=== PATIENT | female | born 1935 | race Caucasian/White ===

== ENCOUNTER 2016-04-07 17:09 | Inpatient (IN) | payer MEDICARE ==
[~2016-04-07] VITALS: Ht 162.5 cm; Wt 86.8 kg
--- NOTE | ~2016-04-07 | O ---
[place], [place] OPERATIVE NOTE NAME: CELENA GOLDSTEIN I UNIT #: [id number] ROOM: 426 DOCTOR: SHELBY ASTORGA MD BIRTHDATE: [birth year] DOS: GASTROENDOSCOPIC REPORT HISTORY OF PRESENT ILLNESS: The patient is an 81-year-old who has presented with chief complaint of severe rectal pain as well as nausea, vomiting, abnormal LFTs, undergoing investigation. PROCEDURE: Today's procedure part of investigation is panendoscopy plus biopsy and digital disimpaction of impacted large volume of solid stool in the rectum. PREMEDICATION: Versed and Diprivan. SCOPE: Olympus folding gastroscope Q10 video. REPORT: After putting the patient in the left lateral position and after application of lubricant to the scope, the scope was introduced. Thereafter, under direct visualization, advanced through the length of esophagus without difficulty. Esophagus and cervicothoracic distally carefully examined. Gastric pouch was entered. Gastritis seen. Duodenal bulb, second and third part within normal limit. No ulceration, no obstruction was noted. The patient was extubated after antral biopsy, tolerated the procedure well. IMPRESSION: Gastritis, status post antral biopsy. PLAN AND DISCUSSION: I am going to proceed with examination of the lower GI tract. SHELBY ASTORGA MD CM:OPRECORD:OPERATIVE NOTE 1537 12 SHELBY ASTORGA MD 04/08/16 181 interface
--- NOTE | ~2016-04-07 | CON ---
[place], [place] REPORT OF CONSULTATION NAME: CELENA GOLDSTEIN I UNIT #: [id number] ROOM: 426 DOCTOR: SHELBY ASTORGA MD BIRTHDATE: [birth year] DOS: 04/08/2016 HISTORY OF PRESENT ILLNESS: An 81-year-old patient who has presented with multiple medical problems, among which were expression of rectal pain, epigastric distress, abnormal liver function tests, and leukocytosis. The patient had a panel of blood work was done since there is no line of communication with her. Urinalysis was normal. CBC, white blood cell was increased to 11, H and H of 11 and 37. Acute abdominal series, chronic parenchymal lung disease, no acute intrathoracic process, significant hard stool in the colon. BUN and creatinine of 76 and 2.74, bilirubin 2.1, GOT and GPT of 240 and 90 and alkaline phosphatase of 206. INR of 1.4. PAST MEDICAL HISTORY: It looks dementia, peripheral vascular disease, intractable nausea, vomiting, and abdominal pain. PAST SURGICAL HISTORY: Appendectomy, cataracts, cholecystectomy, hysterectomy, and . SOCIAL HISTORY: History of alcohol in past. Nonsmoker. MEDICATIONS: List has been reviewed. ALLERGIES: SULFA AND SUSPECTED LOVASTATIN AND NIACIN. REVIEW OF SYSTEMS: In general cannot be obtained from the patient due to cognitive impairment. PHYSICAL EXAMINATION: GENERAL: Obese. VITAL SIGNS: Stable. HEENT: Within normal limits. NECK: Supple. No thyromegaly. CHEST: Symmetric anatomy. Equal expansion. Decreased air entry in general. HEART: Normal sinus rhythm, no gallop, no murmur. ABDOMEN: Obese, large, soft. No hepato-organomegaly. Bowel sounds present. EXTREMITIES: No cyanosis, no pedal edema. NEUROLOGIC: Alert, semi-oriented with pain. No communication, however. PELVIC: She is sitting on a pool of stool. IMPRESSION: 1. Bowel obstruction secondary to mechanical effect of the stool in the rectum. 2. Abnormal LFTs, ruling out mobilization of choledocholithiasis, status post old history of cholecystectomy. 3. Nausea, vomiting, and retching persistently. Ruling out this to be secondary to choledocholithiasis, otherwise ruling out peptic ulcer disease. OTHER ADJUNCTIVE DIAGNOSES: As outlined in paragraph of past surgical and medical history. PLAN AND DISCUSSION: I am going to organize an EGD and digital disimpaction of [place], [place] REPORT OF CONSULTATION NAME: CELENA GOLDSTEIN I UNIT #: [id number] ROOM: 426 DOCTOR: SHELBY ASTORGA MD BIRTHDATE: [birth year] stool and clinical reassessment. SHELBY ASTORGA MD CM:CONSTR:REPORT OF CONSULTATION 1418 04/09/16 0028 interface
--- NOTE | ~2016-04-07 | O ---
[place], [place] OPERATIVE NOTE NAME: CELENA GOLDSTEIN I UNIT #: [id number] ROOM: 426 DOCTOR: GAURI HARRIS,SHELBY BIRTHDATE: [birth year] DOS: GASTROENDOSCOPIC REPORT PROCEDURE: Today's procedure is rectal disimpaction of solid stool and obstruction under sedation. REPORT: After putting the patient in the left lateral position and utilization of copious volume of lubricant, digital examination of the rectum for disimpaction purpose was undertaken. About at least 2 L of solid stool from rectal vault and pouch was delivered and this was only practical under complete sedation. At this stage, the patient cleaned out and sent to the floor, so that we can start colonic prep in hopes of future investigation of the colon. As far as abnormal LFTs is concerned, we are going to follow up on LFTs and CT scan of the abdomen is going to be organized to assure that there is no common duct stone. Thank you again. Sincerely yours, SHELBY ASTORGA MD CM:OPRECORD:OPERATIVE NOTE 1537 17 SHELBY ASTORGA MD 04/08/161816 interface
[~2016-04-07 17:09] MED LIST: AMOXICILLIN500 M2 PO; ATIVAN1 MG PO; CLARITIN10 MG PO; COUMADIN2 M1 PO; COZAAR100 MG PO; COZAAR25 MG PO; COZAAR50 M1 PO; CRESTOR5 MG PO; GABAPENTIN100 MG PO; ISOPTIN SR120 M1 PO; JANTOVEN1 MG PO; K-Dur 20MEQ20 MEQ PO; K-NORM10 MEQ PO; LANTUS100 U/ML SC; LASIX40 MG PO; NITRO TRANS0.2 MG/HR TD; NORVASC10 MG PO; NOVOLOG 70/30 M10 ML SC; NOVOLOG 701 UNIT/0.0 SC; OXYBUTYNIN5 MG PO; PLAVIX75 MG PO; PREDNISONE10 MG PO; PRILOSEC20 MG PO; PROCARDIA XL90 MG PO; PROTONIX40 MG PO; ROCALTROL0.5 MC1 PO; TOPROL XL25 MG PO; TOPROL XL50 M1 PO; TOPROL XL50 MG PO; TYLENOL325 M1 PO; VITAMIN D NATU400 IU PO; ZANTAC 150150 MG PO
[2016-04-07 17:25] VITALS: BP 142/80
[2016-04-07 18:01] LABS: BILIRUBIN NEGATIVE (NEGATIVE); BLOOD NEGATIVE (NEGATIVE); CLARITY CLEAR (CLEAR); COLOR YELLOW (YELLOW); GLUCOSE NEGATIVE (NEGATIVE); KETONE NEGATIVE (NEGATIVE); LEUKO ESTERASE NEGATIVE (NEGATIVE); NITRITE NEGATIVE (NEGATIVE); PH 5.5 (5.0-9.0); PROTEIN NEGATIVE (NEGATIVE); UROBILINOGEN 0.2 E.U./dl (0.2-1.0)
[2016-04-07 18:07] LABS: BASO % 0.4 % (0.0-1.0); EOS # 0.2 10*3/uL (0.0-0.4); EOS % 2.2 % (1.0-4.0); HEMATOCRIT 37.2 % (37.0-47.0); HEMOGLOBIN 11.8 g/dl (12.0-16.0); LYMPH # 1.6 10*3/uL (1.3-4.4); LYMPH % 23.1 % (27.0-41.0); MEAN CELL VOLUME 93.5 fl (81.0-99.0); MEAN CORPUSCULAR HGB 29.6 pg (27.0-31.0); MEAN CORPUSCULAR HGB CONC 31.7 g/dl (33.0-37.0); MEAN PLATELET VOLUME 10.4 fl (9.6-12.3); MONO # 0.7 10*3/uL (0.1-1.0); MONO % 9.8 % (3.0-9.0); NEUT # 4.3 10*3/uL (2.3-7.9); NEUT % 64.2 % (47.0-73.0); PLATELET COUNT AUTOMATED 203 10*3/uL (130-400); RED BLOOD COUNT 3.98 10*6/uL (4.10-5.10); RED CELL DISTRI WIDTH 13.7 % (0-14.5); WHITE BLOOD COUNT 6.8 10*3/uL (4.8-10.8)
[2016-04-07 18:09] LABS: BACTERIA 1+; URINE REFLEX COMMENT NO (NO); WBC 0-2 wbc/hpf (0-5)
[2016-04-07 18:24] LABS: ALBUMIN 3.3 gm/dl (3.1-4.5); BILIRUBIN, TOTAL 1.8 mg/dl (0.2-1.0); POTASSIUM 4.4 mmol/L (3.5-5.1)
[2016-04-07 19:06] VITALS: BP 177/60
[2016-04-07] MEDS ORDERED: CARDIZEM CD180 MG PO (19:22)
[2016-04-07] MEDS ORDERED: JANTOVEN5 MG PO (19:25)
[2016-04-07] MEDS ORDERED: NEURONTIN300 MG PO (19:25)
[2016-04-07] MEDS ORDERED: SINEMET 25-1001 TA1 PO (19:28)
[2016-04-07] MEDS ORDERED: CRESTOR5 MG PO (19:29)
[2016-04-07] MEDS ORDERED: VESICARE5 MG PO (19:30)
[2016-04-07 20:40] VITALS: BP 152/94
[2016-04-08] VITALS (8 sets, daily range): BP systolic 126–152; BP diastolic 45–95
[2016-04-08 06:36] LABS: BASO % 0.3 % (0.0-1.0); EOS % 0.1 % (1.0-4.0); HEMATOCRIT 38.5 % (37.0-47.0); HEMOGLOBIN 12.3 g/dl (12.0-16.0); LYMPH % 8.1 % (27.0-41.0); MEAN CELL VOLUME 94.4 fl (81.0-99.0); MEAN CORPUSCULAR HGB 30.1 pg (27.0-31.0); MEAN CORPUSCULAR HGB CONC 31.9 g/dl (33.0-37.0); MEAN PLATELET VOLUME 10.7 fl (9.6-12.3); MONO # 1.1 10*3/uL (0.1-1.0); MONO % 9.1 % (3.0-9.0); NEUT # 9.6 10*3/uL (2.3-7.9); NEUT % 82.1 % (47.0-73.0); PLATELET COUNT AUTOMATED 168 10*3/uL (130-400); RED BLOOD COUNT 4.08 10*6/uL (4.10-5.10); WHITE BLOOD COUNT 11.7 10*3/uL (4.8-10.8)
[2016-04-08 07:43] LABS: ALBUMIN 3.2 gm/dl (3.1-4.5); BILIRUBIN, TOTAL 2.1 mg/dl (0.2-1.0); POTASSIUM 4.1 mmol/L (3.5-5.1); TOTAL PROTEIN 6.8 gm/dL (6.4-8.2)
[2016-04-08 10:56] LABS: INTERNATIONAL NORM RATIO 1.4 (2.0-3.5); PROTHROMBIN TIME 14.7 SECONDS (9.0-12.4)
[2016-04-09] VITALS: BP 92/73
[2016-04-09 05:40] LABS: ALBUMIN 2.8 gm/dl (3.1-4.5); POTASSIUM 4.2 mmol/L (3.5-5.1); TOTAL PROTEIN 6.3 gm/dL (6.4-8.2)
[2016-04-09 06:11] LABS: BASO % 0.3 % (0.0-1.0); EOS # 0.2 10*3/uL (0.0-0.4); EOS % 1.6 % (1.0-4.0); HEMATOCRIT 35.8 % (37.0-47.0); HEMOGLOBIN 11.2 g/dl (12.0-16.0); LYMPH # 1.6 10*3/uL (1.3-4.4); LYMPH % 16.7 % (27.0-41.0); MEAN CORPUSCULAR HGB CONC 31.3 g/dl (33.0-37.0); MEAN PLATELET VOLUME 11.5 fl (9.6-12.3); MONO % 10.2 % (3.0-9.0); NEUT # 6.7 10*3/uL (2.3-7.9); NEUT % 70.8 % (47.0-73.0); PLATELET COUNT AUTOMATED 152 10*3/uL (130-400); RED BLOOD COUNT 3.73 10*6/uL (4.10-5.10); RED CELL DISTRI WIDTH 14.1 % (0-14.5); WHITE BLOOD COUNT 9.4 10*3/uL (4.8-10.8)
[2016-04-09 08:00] VITALS: BP 120/45
[2016-04-09 16:00] VITALS: BP 110/48
[2016-04-09 20:00] VITALS: BP 120/51
[2016-04-10] VITALS: BP 100/48
[2016-04-10 06:46] LABS: BASO % 0.6 % (0.0-1.0); EOS # 0.3 10*3/uL (0.0-0.4); HEMATOCRIT 35.6 % (37.0-47.0); LYMPH # 1.7 10*3/uL (1.3-4.4); LYMPH % 31.9 % (27.0-41.0); MEAN CELL VOLUME 96.2 fl (81.0-99.0); MEAN CORPUSCULAR HGB 29.7 pg (27.0-31.0); MEAN CORPUSCULAR HGB CONC 30.9 g/dl (33.0-37.0); MEAN PLATELET VOLUME 10.9 fl (9.6-12.3); MONO # 0.4 10*3/uL (0.1-1.0); MONO % 7.1 % (3.0-9.0); NEUT # 2.9 10*3/uL (2.3-7.9); NEUT % 55.2 % (47.0-73.0); PLATELET COUNT AUTOMATED 156 10*3/uL (130-400); RED CELL DISTRI WIDTH 14.1 % (0-14.5); WHITE BLOOD COUNT 5.2 10*3/uL (4.8-10.8)
[2016-04-10 07:15] LABS: ALBUMIN 2.6 gm/dl (3.1-4.5); POTASSIUM 3.8 mmol/L (3.5-5.1); TOTAL PROTEIN 5.9 gm/dL (6.4-8.2)
[2016-04-10 07:23] LABS: INTERNATIONAL NORM RATIO 2.1 (2.0-3.5); PROTHROMBIN TIME 22.7 SECONDS (9.0-12.4)
[2016-04-10 07:54] VITALS: BP 118/64
[2016-04-10 16:00] VITALS: BP 100/57
[2016-04-11] VITALS: BP 129/57
[2016-04-11 06:56] LABS: BASO % 0.7 % (0.0-1.0); EOS # 0.4 10*3/uL (0.0-0.4); HEMATOCRIT 34.5 % (37.0-47.0); HEMOGLOBIN 10.9 g/dl (12.0-16.0); LYMPH # 1.9 10*3/uL (1.3-4.4); LYMPH % 32.6 % (27.0-41.0); MEAN CELL VOLUME 94.8 fl (81.0-99.0); MEAN CORPUSCULAR HGB 29.9 pg (27.0-31.0); MEAN CORPUSCULAR HGB CONC 31.6 g/dl (33.0-37.0); MEAN PLATELET VOLUME 11.1 fl (9.6-12.3); MONO # 0.5 10*3/uL (0.1-1.0); MONO % 9.2 % (3.0-9.0); NEUT % 51.2 % (47.0-73.0); PLATELET COUNT AUTOMATED 157 10*3/uL (130-400); RED BLOOD COUNT 3.64 10*6/uL (4.10-5.10); RED CELL DISTRI WIDTH 13.9 % (0-14.5); WHITE BLOOD COUNT 5.9 10*3/uL (4.8-10.8)
[2016-04-11 07:18] LABS: INTERNATIONAL NORM RATIO 1.9 (2.0-3.5); PROTHROMBIN TIME 20.2 SECONDS (9.0-12.4)
[2016-04-11 07:20] LABS: ALBUMIN 2.6 gm/dl (3.1-4.5); BILIRUBIN, TOTAL 0.7 mg/dl (0.2-1.0); POTASSIUM 4.3 mmol/L (3.5-5.1)
[2016-04-11 07:52] VITALS: BP 120/52
[2016-04-11] MEDS ORDERED: Coumadin5 MG PO (15:57)
[2016-04-11 16:00] VITALS: BP 144/75
[2016-06-05] MEDS ORDERED: LACTULOSE20 GM/30 M PO (15:00)
[2016-06-05] MEDS ORDERED: CRESTOR5 MG PO (15:02)
== END 2016-04-11 17:55 | disposition home or self-care (01) | DRG 388 ==
LOC: ED 17:09 → EDHOLD 18:56 → 4E 18:56
PROVIDERS: Emergency Medicine; Hospitalist; Internal Medicine; Internal Medicine Gastroenterology
PROC: 0DJD8ZZ Inspection of Lower Intestinal Tract, Via Natural or Artificial Opening Endoscopic (ICD-10-PCS; principal; 2016-04-08)
PROC: 0DB68ZX Excision of Stomach, Via Natural or Artificial Opening Endoscopic, Diagnostic (ICD-10-PCS; principal; 2016-04-08)
DX: K56.41 Fecal impaction (principal); N17.1 Acute kidney failure with acute cortical necrosis; K56.69 Other intestinal obstruction; L03.116 Cellulitis of left lower limb; E86.0 Dehydration; K21.9 Gastro-esophageal reflux disease without esophagitis; F32.9 Major depressive disorder, single episode, unspecified; K29.70 Gastritis, unspecified, without bleeding; F41.9 Anxiety disorder, unspecified; Z88.2 Allergy status to sulfonamides; Z88.8 Allergy status to other drugs, medicaments and biological substances; Z79.4 Long term (current) use of insulin; Z79.01 Long term (current) use of anticoagulants; Z79.899 Other long term (current) drug therapy; Z90.49 Acquired absence of other specified parts of digestive tract; Z90.710 Acquired absence of both cervix and uterus; Z98.49 Cataract extraction status, unspecified eye

== ENCOUNTER → 2016-04-15 | Outpatient (CLI) | payer MEDICARE ==
[~2016-04-15] MED LIST changes: +CARDIZEM CD180 MG PO; +Coumadin5 MG PO; +JANTOVEN5 MG PO; +LACTULOSE20 GM/30 M PO; +NEURONTIN300 MG PO; +SINEMET 25-1001 TA1 PO; +VESICARE5 MG PO
[2016-04-15 13:30] LABS: INTERNATIONAL NORM RATIO 2.8 (2.0-3.5); PROTHROMBIN TIME 30.9 SECONDS (9.0-12.4)
== END | disposition home or self-care (01) ==
LOC: LAB 12:41
PROVIDERS: Hospitalist
DX: Z86.718 Personal history of other venous thrombosis and embolism (principal)

== ENCOUNTER 2016-10-16 23:21 | Inpatient (IN) | payer MEDICARE ==
[~2016-10-16] VITALS: Ht 167.6 cm; Wt 78.7 kg
[~2016-10-16 23:21] MED LIST changes: +PRILOSEC20 M1 PO; -PRILOSEC20 MG PO
[2016-10-16 23:32] VITALS: BP 129/73
[2016-10-16 23:49] VITALS: BP 142/61
[2016-10-17] VITALS (8 sets, daily range): BP systolic 90–186; BP diastolic 60–84
[2016-10-17 00:12] LABS: BASO % 0.5 % (0.0-1.0); EOS # 0.1 10*3/uL (0.0-0.4); EOS % 0.9 % (1.0-4.0); HEMATOCRIT 41.6 % (37.0-47.0); HEMOGLOBIN 13.4 g/dl (12.0-16.0); LYMPH # 1.6 10*3/uL (1.3-4.4); LYMPH % 20.6 % (27.0-41.0); MEAN CORPUSCULAR HGB 29.3 pg (27.0-31.0); MEAN CORPUSCULAR HGB CONC 32.2 g/dl (33.0-37.0); MEAN PLATELET VOLUME 10.5 fl (9.6-12.3); MONO # 0.6 10*3/uL (0.1-1.0); MONO % 7.9 % (3.0-9.0); NEUT # 5.5 10*3/uL (2.3-7.9); NEUT % 69.8 % (47.0-73.0); PLATELET COUNT AUTOMATED 156 10*3/uL (130-400); RED BLOOD COUNT 4.57 10*6/uL (4.10-5.10); RED CELL DISTRI WIDTH 13.7 % (0-14.5); WHITE BLOOD COUNT 7.9 10*3/uL (4.8-10.8)
[2016-10-17 00:22] LABS: INTERNATIONAL NORM RATIO 1.5 (2.0-3.5); PROTHROMBIN TIME 16.6 SECONDS (9.0-12.4)
[2016-10-17 00:29] LABS: ALBUMIN 3.2 gm/dl (3.1-4.5); BILIRUBIN, TOTAL 1.2 mg/dl (0.2-1.0); MAGNESIUM 1.6 mg/dL (1.5-2.1); POTASSIUM 3.7 mmol/L (3.5-5.1); TOTAL PROTEIN 7.7 gm/dL (6.4-8.2)
[2016-10-17 00:30] LABS: CKMB 1.2 ng/ml (0.5-3.6)
[2016-10-17 00:31] LABS: TROPONIN I 0.089 ng/ml (<0.045)
[2016-10-17 01:54] LABS: BILIRUBIN NEGATIVE (NEGATIVE); BLOOD 2+ (NEGATIVE); CLARITY CLEAR (CLEAR); COLOR YELLOW (YELLOW); GLUCOSE TRACE (NEGATIVE); KETONE TRACE (NEGATIVE); LEUKO ESTERASE NEGATIVE (NEGATIVE); NITRITE NEGATIVE (NEGATIVE); PROTEIN TRACE (NEGATIVE)
[2016-10-17 02:01] LABS: EPITHELIAL CELLS 15-20; URINE REFLEX COMMENT YES (NO)
[2016-10-17 05:47] LABS: BASO % 0.5 % (0.0-1.0); EOS # 0.1 10*3/uL (0.0-0.4); EOS % 1.2 % (1.0-4.0); HEMATOCRIT 40.2 % (37.0-47.0); LYMPH # 1.8 10*3/uL (1.3-4.4); LYMPH % 23.7 % (27.0-41.0); MEAN CORPUSCULAR HGB 29.7 pg (27.0-31.0); MEAN CORPUSCULAR HGB CONC 32.3 g/dl (33.0-37.0); MEAN PLATELET VOLUME 10.2 fl (9.6-12.3); MONO # 0.6 10*3/uL (0.1-1.0); MONO % 7.9 % (3.0-9.0); NEUT % 66.4 % (47.0-73.0); PLATELET COUNT AUTOMATED 146 10*3/uL (130-400); RED BLOOD COUNT 4.37 10*6/uL (4.10-5.10); RED CELL DISTRI WIDTH 13.8 % (0-14.5); WHITE BLOOD COUNT 7.6 10*3/uL (4.8-10.8)
[2016-10-17 06:03] LABS: HEMOGLOBIN A1c 7.2 % (4.8-5.6)
[2016-10-17 06:17] LABS: BILIRUBIN, TOTAL 0.9 mg/dl (0.2-1.0); POTASSIUM 3.4 mmol/L (3.5-5.1)
[2016-10-17 06:26] LABS: FREE T4 1.37 ng/dl (0.76-1.46); PHOSPHOROUS 2.4 mg/dL (2.5-4.9); THYROID STIM HORMONE (HS) 3.4 uIU/ml (0.358-4.75); TOTAL PROTEIN 7.1 gm/dL (6.4-8.2)
[2016-10-17 06:28] LABS: INTERNATIONAL NORM RATIO 1.6 (2.0-3.5); PROTHROMBIN TIME 17.6 SECONDS (9.0-12.4)
[2016-10-17 06:41] LABS: FOLIC ACID 9.45 ng/mL (>5.38)
[2016-10-18] VITALS: BP 107/47
[2016-10-18] MEDS ORDERED: OMEPRAZOLE40 MG PO (02:17)
[2016-10-18] MEDS ORDERED: GABAPENTIN400 MG PO (04:20)
[2016-10-18] MEDS ORDERED: Cimetidine300 MG PO (04:25)
[2016-10-18 08:00] VITALS: BP 152/50
[2016-10-18 10:29] LABS: INTERNATIONAL NORM RATIO 1.3 (2.0-3.5); PROTHROMBIN TIME 14.1 SECONDS (9.0-12.4)
[2016-10-18 12:00] VITALS: BP 116/50
[2016-10-18 12:07] LABS: POTASSIUM 4.4 mmol/L (3.5-5.1)
[2016-10-18 16:00] VITALS: BP 158/65
[2016-10-18 20:00] VITALS: BP 143/57
[2016-10-19] VITALS: BP 109/33; BP 128/58
[2016-10-19 06:34] LABS: INTERNATIONAL NORM RATIO 1.2 (2.0-3.5); PROTHROMBIN TIME 12.8 SECONDS (9.0-12.4)
[2016-10-19 08:00] VITALS: BP 138/82
[2016-10-19 12:00] VITALS: BP 102/65; BP 136/88; BP 139/50
[2016-10-19 16:00] VITALS: BP 128/56
[2016-10-19 20:00] VITALS: BP 159/52
[2016-10-20] VITALS: BP 154/46
[2016-10-20 06:16] LABS: INTERNATIONAL NORM RATIO 1.3 (2.0-3.5); PROTHROMBIN TIME 13.9 SECONDS (9.0-12.4)
[2016-10-20 08:00] VITALS: BP 148/50
[2016-10-20 15:51] VITALS: BP 146/52
[2016-10-20 20:00] VITALS: BP 168/49
[2016-10-21] VITALS: BP 138/105; BP 140/60
[2016-10-21 06:58] LABS: INTERNATIONAL NORM RATIO 1.5 (2.0-3.5); PROTHROMBIN TIME 15.8 SECONDS (9.0-12.4)
[2016-10-21 08:00] VITALS: BP 154/46
[2016-10-21 12:09] VITALS: BP 161/66
[2016-10-21] MEDS ORDERED: COUMADIN6 M2 PO (14:59)
[2016-10-21 17:05] VITALS: BP 139/59
== END 2016-10-21 17:26 | disposition home or self-care (01) | DRG 682 ==
LOC: ED 23:21 → EDHOLD 10-17 01:49 → 5E 10-17 01:49
PROVIDERS: Emergency Medicine Emergency Medical Services; Internal Medicine; Internal Medicine Hospice and Palliative Medicine
DX: N17.0 Acute kidney failure with tubular necrosis (principal); G93.40 Encephalopathy, unspecified; E44.0 Moderate protein-calorie malnutrition; E11.22 Type 2 diabetes mellitus with diabetic chronic kidney disease; D68.59 Other primary thrombophilia; E11.649 Type 2 diabetes mellitus with hypoglycemia without coma; I50.32 Chronic diastolic (congestive) heart failure; I13.0 Hypertensive heart and chronic kidney disease with heart failure and stage 1 through stage 4 chronic kidney disease, or unspecified chronic kidney disease; I48.2 Chronic atrial fibrillation; E11.65 Type 2 diabetes mellitus with hyperglycemia; M19.90 Unspecified osteoarthritis, unspecified site; K59.00 Constipation, unspecified; E80.6 Other disorders of bilirubin metabolism; R74.0 Nonspecific elevation of levels of transaminase and lactic acid dehydrogenase [LDH]; F32.9 Major depressive disorder, single episode, unspecified; K21.9 Gastro-esophageal reflux disease without esophagitis; E78.2 Mixed hyperlipidemia; H91.93 Unspecified hearing loss, bilateral; I08.1 Rheumatic disorders of both mitral and tricuspid valves; I27.2 Other secondary pulmonary hypertension; F41.1 Generalized anxiety disorder; N18.4 Chronic kidney disease, stage 4 (severe); Z88.1 Allergy status to other antibiotic agents; Z88.8 Allergy status to other drugs, medicaments and biological substances; Z90.49 Acquired absence of other specified parts of digestive tract; Z95.0 Presence of cardiac pacemaker; Z79.4 Long term (current) use of insulin; Z68.29 Body mass index [BMI] 29.0-29.9, adult

== ENCOUNTER → 2017-02-19 | Outpatient (CLI) | payer MEDICARE ==
[~2017-02-19] MED LIST changes: +COUMADIN6 M2 PO; +Cimetidine300 MG PO; +GABAPENTIN400 MG PO; +OMEPRAZOLE40 MG PO
== END | disposition home or self-care (01) ==
LOC: RAD 15:39
DX: M17.12 Unilateral primary osteoarthritis, left knee (principal); M25.462 Effusion, left knee

== ENCOUNTER 2017-02-22 17:51 | Inpatient (IN) | payer MEDICARE ==
[~2017-02-22] VITALS: Ht 162.5 cm; Wt 75.4 kg
--- NOTE | ~2017-02-22 | WRIGHTHP ---
[place], [place] PATIENT HISTORY AND PHYSICAL EXAM NAME: [facility]STEIN [id number] #: [id number] ROOM: 520 DOCTOR: NADINE MANUEL MD BIRTHDATE: [birth year] DOS: 02/22/2017 HISTORY OF PRESENT ILLNESS: The patient has been admitted to hospital with confused mental state, unable to communicate well and having urinary tract infection with urosepsis and due to that, she has been admitted to hospital. She was brought to Emergency Department by the family with confused mental state and she was brought by ambulance. She had some hallucinations at home and she has also foul smelling urine infection. On investigation in the Emergency Department, the patient was found to be having urosepsis with dehydration with renal failure, so needed to be admitted to the hospital. PAST MEDICAL HISTORY: The patient has past history of permanent cardiac pacemaker placement, history of appendectomy, cataract surgery, cholecystectomy, hysterectomy. The patient has past history of atrial fibrillation, hyperlipidemia, ESRD, hypertension, congestive heart failure, GERD syndrome, peripheral neuritis, diabetes mellitus. MEDICATIONS: The patient is taking losartan 50 mg daily, Sinemet ____ mg 1 tablet 3 times daily, omeprazole 40 mg daily, gabapentin 400 mg 3 times daily, ____ 50 mg daily, Lasix 40 mg daily, calcitriol 0.5 mg daily, insulin glargine 25 units daily, lactulose 20 grams daily, ____ 180 mg daily, lovastatin 5 mg daily, VESIcare 5 mg daily, potassium chloride 20 mEq daily. PHYSICAL EXAMINATION: GENERAL: The patient is hard of hearing. She is not able to communicate with me, but she is somewhat conscious, does not seem to be confused and she seems to be somewhat dehydrated. Her facial expression is bland. HEENT AND NECK: Veins are not distended. Carotid pulsation normal. Tongue is coated and dry. HEART: Regular. No murmur. LUNGS: Clear. No creps or rhonchi. ABDOMEN: Soft. Some tenderness in the suprapubic region, having foul urinary smell. EXTREMITIES: No edema of leg. NEUROLOGIC: No localized neurological deficit observed. LABORATORY DATA: Her lactic acid level is 1.6, which is normal. CBC showed no acute abnormality. Comprehensive metabolic shows glucose 230, BUN 34, creatinine 1.65, GFR 30, indicating renal failure, I do not know whether this is chronic or acute on chronic. Her albumin is 2.8, bilirubin is 1.3, alkaline phosphatase 105. Lipase is 44. Protime is 36.8, which is high. I will hold her Coumadin today and from tomorrow she will be on going to 3 mg. Chest x-ray is normal. Urine examination shows 2+ bacteria, 2+ protein, hyaline crystals. CT scan of the head is normal. DIAGNOSES: Urosepsis with renal failure with end-stage renal disease, hypertension, atrial fibrillation, congestive heart failure, confused mental status, diabetes mellitus, hyperlipidemia and neuritis. PLAN OF TREATMENT: The patient will be given IV fluid, will be started on home [place], [place] PATIENT HISTORY AND PHYSICAL EXAM NAME: CELENA GOLDSTEIN I UNIT #: [id number] ROOM: [facility] DOCTOR: MAR HARRIS,NADINE Lobo BIRTHDATE: [birth year] medication except I will reduce the dose of her Coumadin and also hold her Lasix and reduce the dose of gabapentin. NADINE MANUEL MD CM:HISPHYS:PATIENT HISTORY AND PHYSICAL EXAMINATION 1102 1427 NADINE MANUEL MD 02/23/17 5496 interface
--- NOTE | ~2017-02-22 | CON ---
[place], [place] REPORT OF CONSULTATION NAME: CELENA GOLDSTEIN I UNIT #: [id number] ROOM: 520 DOCTOR: HE NEVAREZ MD BIRTHDATE: [birth year] DOS: 02/25/2017 CHIEF COMPLAINT: "I don't want breakfast." HISTORY OF PRESENT ILLNESS: This is an 81-year-old white female who was brought to the emergency room at [facility] by family. She was found to be increasingly confused with an altered mental status. Upon admission, she was found to have foul-smelling urine with a UTI. She was also dehydrated and in renal failure. She had subsequently been admitted to the medical unit where she has been found to be confused, experiencing significant hallucinations and also some symptoms suggestive of depression. PAST MEDICAL HISTORY: She has a permanent cardiac pacemaker and appendectomy, cataract surgery, cholecystectomy, hysterectomy, AFib, hyperlipidemia, end-stage renal disease, hypertension, congestive heart failure, GERD, peripheral neuritis and diabetes. MENTAL STATUS: The patient is alert and oriented to person, place, but not time. She reports that she has been here just one night and did not sleep well. She also endorses poor appetite and no desire to eat. She seems rather flat and blunted with constricted range. Her responses tended to be short and simple, at times inappropriate. She does process information very slowly and her short term memory is exceedingly poor. DIAGNOSIS: Major depression, recurrent. PLAN: I will go ahead and start Remeron 15 mg at bedtime to aide sleep, improve appetite and combat depression. We will need to continue to evaluate her for the presence of any underlying dementia. It is unclear how much of her altered mental status is because of the urosepsis and dehydration as well as possible effect from depression. At the present time, I have no grounds to force her to the psychiatric unit. I do think she would benefit though from ongoing psychiatric treatment. Her response to me was that she wants to just leave here and go home, perhaps family can help convince her to continue to receive ongoing active psychiatric intervention. HE NEVAREZ MD CM:CONSTR:REPORT OF CONSULTATION 0915 02/25/17 0935 interface
--- NOTE | ~2017-02-22 | CON ---
[place], [place] REPORT OF CONSULTATION NAME: CELENA GOLDSTEIN I UNIT #: [id number] ROOM: 520 DOCTOR: MARY RANDALL ED.D (NORA) BIRTHDATE: [birth year] DOS: 02/26/2017 HISTORY OF PRESENT ILLNESS: The patient is an 81-year-old female referred by Dr. Nevarez for competency evaluation. At the present time, this patient is on the 5th floor at [facility]. Her physician is Dr. Limon and her medical history is pertinent for urinary tract infection, altered mental status, diabetes. Her medications include Crestor, VESIcare, calcium, Coumadin, Cardizem, Sinemet, losartan, gabapentin, omeprazole, insulin, lactulose, Lasix, Cozaar. This patient does not have any significant substance abuse issues. She was awake, alert and oriented to person only. She was aware she was in [place] but had no idea she was at the hospital. She does not know the year or the date or the season of the year. Her short and long-term memory appeared to be somewhat impaired, but is difficult to ascertain that her level of impairment due to the fact that she has been delirious secondary to her urinary tract infection and her elevated BUN. I spoke at length with her daughters and they said she had been living in home comfortably with support from her family who live across the street and next door. She was wheelchair bound and had difficulty getting around but overall did fairly well. She would have periods of time throughout the year, when she would become more confused. She was possibly suffering from some type of urinary tract infection or dehydration at that time. She then would be fine, had no difficulties whatsoever. She may have some mild underlying dementia, but is not severe. She is clearly not competent to make informed healthcare decisions at this time and all decision should be made by her daughters. There was a concern about sending her to the Behavioral Health unit, which I did suggest, however, she does not have a power of patient support partner for healthcare and is not capable or not competent to sign herself into the unit, so therefore she cannot be transferred to the Behavioral Health Unit. Hopefully, her situation will clear, although she may need to go to a skilled rehabilitation once she is discharged from the hospital. DIAGNOSES: 1. Delirium, not otherwise specified. 2. Mild neurocognitive disorder. RECOMMENDATIONS: 1. In my opinion, this patient is not competent to make informed healthcare decisions. 2. All decisions should be made by her daughters who are her next of kin. 3. The patient would not be able to be admitted to the Behavioral Health Unit due to the fact she is not competent to sign herself in and there is no healthcare power of patient support partner. Thank you very much for this consult. [place], [place] REPORT OF CONSULTATION NAME: TRISTONCELENA I UNIT #: [id number] ROOM: [facility] DOCTOR: MARY RANDALL ED.D (NORA) BIRTHDATE: [birth year] MARY RANDALL ED.D CM:CONSTR:REPORT OF CONSULTATION 1537 02/26/172110 interface ARON LIMON MD and HE NEVAREZ MD
--- NOTE | ~2017-02-22 | CON ---
[place], [place] REPORT OF CONSULTATION [facility]IN [id number] #: [id number] ROOM: 520 DOCTOR: SHELBY ASTORGA MD BIRTHDATE: [birth year] DOS: 02/26/2017 HISTORY OF PRESENT ILLNESS: An 81-year-old who has presented with chief complaint of multiple medical issues among which is failure to thrive, not eating much. We have been asked for assessment of the patient regarding endoscopy in case there are issues of concern that she is not eating. I have had discussion with the daughter who is at the bedside. Apparently, she was able to assist her in her eating. The patient herself is very hard of hearing. Laboratory values at the time of admission was reviewed. Lactic acid was normal. CBC, H and H 12 and 38. Comprehensive metabolic panel: BUN and creatinine 34 and 1.6, GFR 30, INR of 3.2 initially with a chest x-ray, which is clear. Blood cultures were negative. Urine cultures were negative. CBC after hydration dropped to 11 and 35, no active bleeding was noticed. PAST MEDICAL HISTORY: Associated hyperlipidemia, atrial fibrillation, hypertension, gastroesophageal reflux, peripheral neuropathy, congestive heart failure, diabetes mellitus. PAST SURGICAL HISTORY: Appendectomy, cardiac pacemaker, cataract, cholecystectomy, hysterectomy. FAMILY HISTORY: Supportive family at the bedside. MEDICATIONS: Medication list including warfarin was reviewed. ALLERGIES: LOVASTATIN, LISINOPRIL, NIACIN, SEPTRA. SOCIAL HISTORY: Nonsmoker, nonalcohol consumer, residing in a long-term. REVIEW OF SYSTEMS: Cannot be meaningfully obtained from her; however, denies shortness of breath. Denies chest pain. No hematemesis, no hematochezia. PHYSICAL EXAMINATION: GENERAL: Extremely hard of hearing with some degree of dementia. HEENT: Head normocephalic, nontraumatic. Mouth and buccal mucosa benign. NECK: Supple, no thyromegaly, no cervical lymphadenopathy. CHEST: Symmetric anatomy, decreased air entry; however, clear. No wheeze, no rhonchi. LUNGS: At the time of my auscultation appears to be normal sinus rhythm; however, history of atrial fibrillation. ABDOMEN: Soft. No hepato-organomegaly. Bowel sounds present. No pulsatile mass. EXTREMITIES: Stasis dermatitis of lower extremities. NEUROLOGIC: Alert and orientation slow. LABORATORY DATA: Reviewed. Records reviewed. Data reviewed. IMPRESSION: Failure to thrive. OTHER ADJUNCTIVE DIAGNOSES: As outlined in paragraph past medical and surgical [place], [place] REPORT OF CONSULTATION NAME: CELENA GOLDSTEIN I UNIT #: [id number] ROOM: [facility] DOCTOR: GAURI HARRIS,SHELBY BIRTHDATE: [birth year] history. PLAN AND DISCUSSION: I have had a discussion with the daughter at the bedside. She is providing consent to the floor in case the patient requires to have endoscopy that would be organized. Otherwise, supportive management and clinical reevaluation. At the present time, we are going to continue with Protonix and soft diet and assisted feeding, and I will await further reports from nursing staff tomorrow. SHELBY ASTORGA MD CM:CONSTR:REPORT OF CONSULTATION 1345 02/26/17 1445 interface
[2017-02-22 17:52] VITALS: BP 180/52
[2017-02-22 18:30] LABS: BASO % 0.4 % (0.0-1.0); EOS % 0.1 % (1.0-4.0); HEMOGLOBIN 12.4 g/dl (12.0-16.0); LYMPH # 1.1 10*3/uL (1.3-4.4); LYMPH % 15.2 % (27.0-41.0); MEAN CORPUSCULAR HGB CONC 32.6 g/dl (33.0-37.0); MEAN PLATELET VOLUME 10.6 fl (9.6-12.3); MONO # 0.7 10*3/uL (0.1-1.0); MONO % 9.9 % (3.0-9.0); NEUT # 5.4 10*3/uL (2.3-7.9); NEUT % 74.3 % (47.0-73.0); PLATELET COUNT AUTOMATED 236 10*3/uL (130-400); RED BLOOD COUNT 4.13 10*6/uL (4.10-5.10); RED CELL DISTRI WIDTH 13.4 % (0-14.5); WHITE BLOOD COUNT 7.2 10*3/uL (4.8-10.8)
[2017-02-22 18:43] LABS: INTERNATIONAL NORM RATIO 3.2 (2.0-3.5)
[2017-02-22 18:44] LABS: ALBUMIN 2.8 gm/dl (3.1-4.5); CREATININE 1.65 mg/dL (0.55-1.02); POTASSIUM 4.4 mmol/L (3.5-5.1); TOTAL PROTEIN 7.6 gm/dL (6.4-8.2)
--- NOTE | 2017-02-22 18:45 | NUR ---
LUZ CATH PLACED BY STEPHANIA MURO AT THIS TIME.
--- NOTE | 2017-02-22 19:00 | NUR ---
LOWER ABDOMEN, VAGINA REGION AND BUTTOCKS EXTREMELY ERYTHEMATOUS AND EXOCRIATED, LABIA MAJORA APPEARS TO BE EDEMATOUS, PATIENT HAD TWO DEPENDS ON AND WAS SOAKED THROUGH BOTH. MIRNARN
[2017-02-22 19:01] LABS: BILIRUBIN 1+ (NEGATIVE); BLOOD TRACE-INTACT (NEGATIVE); CLARITY SL CLOUDY (CLEAR); COLOR YELLOW (YELLOW); GLUCOSE NEGATIVE (NEGATIVE); KETONE TRACE (NEGATIVE); LEUKO ESTERASE NEGATIVE (NEGATIVE); NITRITE NEGATIVE (NEGATIVE); PH 5.5 (5.0-9.0); SPECIFIC GRAVITY 1.025 (1.005-1.030)
--- NOTE | 2017-02-22 19:06 | NUR ---
REPORT GIVEN TO BE MURO AT THIS TIME.
[2017-02-22 19:10] LABS: BACTERIA 2+
[2017-02-22 21:30] VITALS: BP 175/48
--- NOTE | 2017-02-22 23:00 | NUR ---
Time: 2129 A 81 year old FEMALE admitted to 5E under services of DR. BRAXTON HARRIS,[facility]. Pt. arrived via bed from ER. Chief complaint: MALODOROUS URINE AND METABOLIC ENCEPHALOPATHY. LUIS FELIPE YANEZ
[2017-02-23] VITALS: BP 176/52
[2017-02-23 04:00] VITALS: BP 168/62
--- NOTE | 2017-02-23 06:13 | NUR ---
CALLED DR LIMON, RECEIVED ORDERS. ORDER FOR SOCIAL SERVICE CONSULT GIVEN AND PUT IN.
--- NOTE | 2017-02-23 06:16 | NUR ---
SOCIAL SERVICE CONSULT FOR PLACEMENT ORDERED.
[2017-02-23 08:00] VITALS: BP 180/52
--- NOTE | 2017-02-23 09:55 | NUR ---
SPOKE TO DR LIMON REGARDING CONTINUING HOME MEDS AND PT DRY HEAVING AND NAUSEA.ORDER RECIEVED FOR KIRBY AND NEW CONSULT FOR DR. ASTORGA.
--- NOTE | 2017-02-23 11:00 | NUR ---
DR MANUEL ROUNDED AND ORDERS RECIEVED.
--- NOTE | 2017-02-23 11:35 | NUR ---
SPOKE TO DR LIMON TO CLARIFY ORDER OF PT WITH HX DM AND CHF. HE CHANGED ORDER TO 0.9NS @ 100 ML/HR. AT THIS TIME HE ORDERED A NEW CONSULT FOR DR ASTORGA. PT RESTING IN BED WITH EYES CLOSED. RESPS EASY ON RA.VOICES NO NEEDS AT HTIS TIME.CALL LIGHT IN REACH.
--- NOTE | 2017-02-23 11:40 | NUR ---
DR ASTORGA NOTIFIED OF NEW CONSULT FOR ABDOMINAL PAIN AND NAUSEA.
--- NOTE | 2017-02-23 12:33 | NUR ---
ZOFRAN 4 MG IV GIVEN FOR C/O NAUSEA AND DRY HEAVING.
--- NOTE | 2017-02-23 13:26 | NUR ---
SPOKE TO DAUGHTER ON TELEPHONE REGARDING PT STATUS. PASSWORD PROVIDED. NOTIFIED HER PT WAS STABLE AND RESPONDING WELL TO CURRENT PLAN OF CARE.RESPS EASY ON RA. CALL LIGHT IN REACH.
[2017-02-23 16:00] VITALS: BP 151/45
--- NOTE | 2017-02-23 18:02 | NUR ---
BLADDER SCANNED FOR 342. PT DENIES PAIN. INCONTINENT FOR URINE X2.
--- NOTE | 2017-02-23 19:34 | NUR ---
HAVING DRY HEAVES; MEDICATED WITH ZOFRAN.
[2017-02-23 20:00] VITALS: BP 158/64
[2017-02-24] VITALS: BP 137/86
--- NOTE | 2017-02-24 | NUR ---
RESTING IN BED WITH EYES CLOSED. IV FLUIDS CONTINUE TO INFUSE WITHOUT DIFFICULTY; SITE ASYMPTOMATIC. CALL LIGHT WITHIN REACH.
[2017-02-24 08:00] VITALS: BP 174/50
--- NOTE | 2017-02-24 08:30 | NUR ---
ADVERTISING SALES REPRESENTATIVE VS. CONFUSED. SW WILL CALL FAMILY FOR DC PLAN.
--- NOTE | 2017-02-24 09:54 | NUR ---
SPOKE TO DAUGHTER KERI WHO TALKED TO PATIENT ON PHONE. PT CALMED DOWN SOME. KERI STATED SHE WOULD BE IN SOON.
--- NOTE | 2017-02-24 13:20 | NUR ---
SPOKE TO DR SMALLWOOD AND ORDER RECIEVED FOR DIET TO RESUME. PT REFUSES ANY TYPE OF SCOPE AND WANTS TO GO HOME.
[2017-02-24 16:00] VITALS: BP 107/82
--- NOTE | 2017-02-24 19:59 | NUR ---
CONSULTED DID NOT CONTACT GERI RANDALL ACCEPTING.
[2017-02-24 20:00] VITALS: BP 160/58
[2017-02-25] VITALS: BP 137/87
--- NOTE | 2017-02-25 05:54 | NUR ---
PATIENT RESTING IN BED ANSWERS QUESTIONS APPROPRIATLY AT THIS TIME CALL LIGHT IN REACH PATIENT IS CALM AT PRESENT TI,E SEE SHIFT aSSESSMENT
[2017-02-25 07:29] LABS: BASO % 0.8 % (0.0-1.0); EOS # 0.2 10*3/uL (0.0-0.4); EOS % 3.4 % (1.0-4.0); HEMATOCRIT 33.2 % (37.0-47.0); HEMOGLOBIN 10.5 g/dl (12.0-16.0); LYMPH # 1.1 10*3/uL (1.3-4.4); LYMPH % 23.2 % (27.0-41.0); MEAN CELL VOLUME 96.2 fl (81.0-99.0); MEAN CORPUSCULAR HGB 30.4 pg (27.0-31.0); MEAN CORPUSCULAR HGB CONC 31.6 g/dl (33.0-37.0); MEAN PLATELET VOLUME 10.6 fl (9.6-12.3); MONO # 0.4 10*3/uL (0.1-1.0); MONO % 9.3 % (3.0-9.0); NEUT % 62.9 % (47.0-73.0); PLATELET COUNT AUTOMATED 179 10*3/uL (130-400); RED BLOOD COUNT 3.45 10*6/uL (4.10-5.10); RED CELL DISTRI WIDTH 13.5 % (0-14.5); WHITE BLOOD COUNT 4.8 10*3/uL (4.8-10.8)
[2017-02-25 07:34] LABS: CREATININE 1.17 mg/dL (0.55-1.02); POTASSIUM 3.9 mmol/L (3.5-5.1)
[2017-02-25 07:57] LABS: INTERNATIONAL NORM RATIO 1.9 (2.0-3.5)
[2017-02-25 08:00] VITALS: BP 150/51
--- NOTE | 2017-02-25 08:29 | NUR ---
SW SPOKE WITH DTR KERI SALVADOR. FAMILY DECIDED FOR SHORT STAY AT [facility]. SW WILL MAKE REFERRAL.
--- NOTE | 2017-02-25 09:16 | NUR ---
DR. NEVAREZ IN TO SEE PATIENT RE: PLAN OF CARE, ORDER ENTERED TO START PO REMERON.
--- NOTE | 2017-02-25 09:32 | NUR ---
PATIENT REFUSED ALL AM PO MEDICATIONS. APPLIED CALAMINE LOTION TO ARMS/NECK/SHOULDERS FOR ITCHING SKIN.
--- NOTE | 2017-02-25 10:35 | NUR ---
LEFT MESSAGE WITH PROJECT ENGINEER [employer]MICALS RE: DAUGHTER IS REQUESTING A PRIVATE ROOM AT [facility] WHEN PATIENT DISCHARGED THERE D/T PATIENT GETS AGITATED AT TIMES.
--- NOTE | 2017-02-25 11:14 | NUR ---
BEDSIDE GLUCOSE RESULT <50. ORDERING STAT REFLEX GLUCOSE. ADMINISTERED ONE AMP D50 IV X 1.
--- NOTE | 2017-02-25 11:47 | NUR ---
STAT REFLEX GLUCOSE 132. WILL CONTINUE TO MONITOR FOR S/S HYPOGLYCEMIA.
--- NOTE | 2017-02-25 13:00 | NUR ---
PHYSICAL THERAPY PAtient evaluated on 5, full evaluation to follow. Continue with PT as per plan of care with fall, max (A) 1-2 and acute debility precautions. May require SNF for impaired mobility in order to return to home at [facility]. PAtient is high complexity via chart review, tests and evaluation: 67171. Thank you for this referral. Yocasta Brower,PT
--- NOTE | 2017-02-25 15:19 | NUR ---
Occupational Therapy evaluation completed this date on with full eval to follow. Precautions include bed alarm, fall risk, IV, rash BUEs, disoriented to year, moderate complexity level 90956. Recommend OT per POC and SNF upon d/c. If patient refuses then home with SN,PT,OT and at least 16 hrs /day supervision. Thank you for this referral. India Romero OTR/L
[2017-02-25 16:00] VITALS: BP 157/67
--- NOTE | 2017-02-25 16:00 | NUR ---
PT BSG-99, SEE EMAR. TOLERATED ROUTINE MED WITH NO PROBLEM. CALL LIGHT IN REACH. VERY [place] PASS. BED ALARM ON. SEE SHIFT ASSESSMENT.
[2017-02-25 20:00] VITALS: BP 170/60
--- NOTE | 2017-02-25 20:17 | NUR ---
PT COMPLIANT WITH MEDS WITH COAXING AND MULTIPLE EXPLANATIONS ABOUT THE NEED TO TAKE MEDICATIONS. DAUGHTER AT BEDSIDE.
[2017-02-26 07:41] LABS: BASO % 0.6 % (0.0-1.0); EOS # 0.1 10*3/uL (0.0-0.4); HEMATOCRIT 35.3 % (37.0-47.0); HEMOGLOBIN 11.1 g/dl (12.0-16.0); LYMPH % 20.6 % (27.0-41.0); MEAN CELL VOLUME 94.6 fl (81.0-99.0); MEAN CORPUSCULAR HGB 29.8 pg (27.0-31.0); MEAN CORPUSCULAR HGB CONC 31.4 g/dl (33.0-37.0); MEAN PLATELET VOLUME 10.8 fl (9.6-12.3); MONO # 0.5 10*3/uL (0.1-1.0); MONO % 9.6 % (3.0-9.0); NEUT # 3.1 10*3/uL (2.3-7.9); PLATELET COUNT AUTOMATED 179 10*3/uL (130-400); RED BLOOD COUNT 3.73 10*6/uL (4.10-5.10); RED CELL DISTRI WIDTH 13.6 % (0-14.5); WHITE BLOOD COUNT 4.7 10*3/uL (4.8-10.8)
[2017-02-26 07:58] LABS: INTERNATIONAL NORM RATIO 1.4 (2.0-3.5)
[2017-02-26 08:00] VITALS: BP 166/66
[2017-02-26 08:15] LABS: BUN 18 mg/dl (7-24); CHLORIDE 110 mmol/L (98-107); CREATININE 1.05 mg/dL (0.55-1.02); POTASSIUM 4.1 mmol/L (3.5-5.1); SODIUM 143 mmol/L (136-145)
--- NOTE | 2017-02-26 08:54 | NUR ---
PHYSICAL THERAPY Mrs Fishman seen this AM for her physical therapy treatment. Pt said NO, not now will stop back later this AM. FRANCISCO AG LABORER WRECKING AND SALVAGING.
--- NOTE | 2017-02-26 09:18 | NUR ---
PHYSICAL THERAPY Patient refused therapy at 9:00 am and said she woyuld like therapy to come back later. Will check back later with patient. Rajiv Cardozo IMPLANT POLISHER
--- NOTE | 2017-02-26 10:16 | NUR ---
SW RECEIVED NOTICE FROM [facility] THAT FACILITY WAS DECLINING REFERRAL DUE TO BEHAVIORS AND RECENT SITTER.
--- NOTE | 2017-02-26 10:17 | NUR ---
SW LEFT VM FOR DTR KERI SALVADOR THAT [facility] DECLINED REFERRAL AND REQUESTED ADDITIONAL FACILITIES TO FAX REFERRAL TO.
--- NOTE | 2017-02-26 11:00 | NUR ---
PHYSICAL THERAPY Patient REFUSED physical therapy again this morning saying she doesn't want to get up out of bed. This is the 2 nd attempt for physical therapy. VANESSA MCKEON BRINE SUPERVISOR
--- NOTE | 2017-02-26 11:35 | NUR ---
HOWIE SPOKE WITH DTR KERI SALVADOR. KERI SPOKE WITH DR. RANDALL WHO IS RECOMMENDING [facility]. KERI IS GOING TO TALK WITH HER SIBLINGS AND DECIDE ON ANOTHER FACILITY OR PLAN. KERI WILL LEAVE HOWIE A MESSAGE OF WHAT FAMILY DECIDES.
--- NOTE | 2017-02-26 12:18 | NUR ---
SPOKE WITH DR. ASTORGA ABOUT PATIENTS NAUSEA AND ABDOMINAL PAIN. DR. ASTORGA SAID HE WILL BE UP TO SEE THE PATIENT.
--- NOTE | 2017-02-26 12:55 | NUR ---
PATIENT IS RESTING IN BED. PATIENT HAS FREQUENT CONFUSION AND [place] SHOSHONE. PATIENT HAS GENERALIZED WEAKNESS BUT CAN AMBULATE TO [facility] AND BEDSIDE CHAIR WITH ASSISTANCE. BED ALARM ACTIVATED, CALL LIGHT WITHIN REACH. PATIENT DENIES PAIN OR DISCOMFORT AT THIS TIME. SEE ASSESSMENT.
[2017-02-26 16:00] VITALS: BP 166/66
--- NOTE | 2017-02-26 19:41 | NUR ---
PATIENT IS SITTING IN THE BEDSIDE CHAIR WITH FAMILY AT THE BEDSIDE. PATIENT IS AGITATED WITH FAMILY MEMBERS. PATIENT HAS BEEN COOPERATIVE UPON ASSESSMENT. PATIENT DENIES ANY PAIN, DISCOMFORT OR SOB. CALL LIGHT IS WITHIN REACH. SEE ASSESSMENT.
[2017-02-26 20:00] VITALS: BP 181/58
[2017-02-27] VITALS: BP 186/58
--- NOTE | 2017-02-27 13:11 | NUR ---
PHYSICAL THERAPY Pt refused therapy this date. She attempted ankle pumps but states she's in too much pain to participate in therapy. Ewa Harris, METAL LATHER
--- NOTE | 2017-02-27 15:52 | NUR ---
OT DAILY NOTE PT DECLINED OT THIS DATE SAYING THAT IS NOT FEELING UP TO IT AND CAN'T WALK. CONTINUE WITH OT PLAN OF CARE. ANTHONY YUSUF/Vel
[2017-02-27 16:00] VITALS: BP 153/85
--- NOTE | 2017-02-27 21:06 | NUR ---
IV ATIVAN ADMINISTERED PER PRN ORDER FOR PATIENT C/O NERVOUSNESS/ANXIETY. WILL MONITOR EFFECTIVENESS. CALL LIGHT LEFT IN REACH. BED ALARM INTACT.
--- NOTE | 2017-02-27 21:56 | NUR ---
PATIENT STATES EARLIER IV ATIVAN HELPED SOME, BUT SHE STILL CANNOT GET TO SLEEP. PATIENT REPOSITIONED IN BED FOR COMFORT. WILL CONTINUE TO MONITOR. BED LEFT LOCKED IN LOW POSITION, BED ALARM INTACT, CALL LIGHT LEFT IN REACH.
[2017-02-28] VITALS: BP 149/56
--- NOTE | 2017-02-28 01:55 | NUR ---
PATIENT MEDICATED WITH 0.5 MG IV ATIVAN PER PRN ORDER FOR C/O ANXIETY/SLEEPLESSNESS. PATIENT STATING "I WANT A NERVE MEDICINE TO HELP ME SLEEP." WILL MONITOR EFFECTIVENESS. CALL LIGHT LEFT IN REACH.
--- NOTE | 2017-02-28 02:36 | NUR ---
EARLIER IV ATIVAN APPEARS EFFECTIVE. PATIENT ASLEEP IN BED. RESPIRATIONS EASY. NO S/S OF DISTRESS NOTED. WILL MONITOR.
[2017-02-28 07:06] LABS: CREATININE 1.18 mg/dL (0.55-1.02)
[2017-02-28 08:00] VITALS: BP 134/50
[2017-02-28 09:53] LABS: INTERNATIONAL NORM RATIO 1.7 (2.0-3.5)
--- NOTE | 2017-02-28 10:02 | NUR ---
SHOWING SIGNS OF INCREASED CONFUSION ALERT TO SELF AND PLACE BUT NOT TO TIME. KEEPS STATING SHE WANTS TO GO TO [facility] AND NEEDS CLOTHING.
--- NOTE | 2017-02-28 10:45 | NUR ---
PHYSICAL THERAPY Victoria seen this AM for her therapy session, daughter present. Pt wanting her breakfast first and pt's daughter ask if i could come back. FRANCISCO AG OPERATIONS LEAD
--- NOTE | 2017-02-28 10:54 | NUR ---
PHYSICAL THERAPY Back this AM to see Mrs Fishman, Pt was up in her bedside chair by three aids to transfer up into her chair. I talked with Pt about standing and she said that she cannot stand. With much verbal cueing transfer sit/stand, standing balance with MAX A X 1, with cues to stand tall and not to sit. Pt did stand to her tolerance and said thats all no more. Pt with her call light, body alarm on. FRANCISCO AG JOURNEYMAN WIREMAN.
--- NOTE | 2017-02-28 11:26 | NUR ---
PATIENT SEEN 1:1 15 MINUTES OT THIS DATE. PATIENT IN RECLINER AND VERBALIZING NOT FEELING WELL. IDENTIFIED PATIENT BY NAME AND DATE OF . PATIENT WILLING TO COMPLETE GROOMING TASK TO FACILITATE AROM THAT INCLUDED COMBING HAIR AND BRUSHING TEETH MAX A AND INCREASE TIME REQUIRED. PATIENT DEMONSTRATED LIMITATIONS ROM THIS DATE. KRISTEN BANKS
[2017-02-28 16:00] VITALS: BP 186/63
[2017-02-28 20:00] VITALS: BP 154/88
--- NOTE | 2017-02-28 21:00 | NUR ---
PT GIVEN PRN TYLENOL FOR HEADACHE. WILL CONTINUE TO MONITOR
--- NOTE | 2017-02-28 23:00 | NUR ---
PT GIVEN PRN ATIVVAN FOR ANXIETY. WILL CONTINUE TO MONITOR PT.
[2017-03-01] VITALS: BP 147/55
--- NOTE | 2017-03-01 01:21 | NUR ---
ATIVAN RELIEVED PT'S ANXIETY. PT SLEEPING WILL CONINUE TO MONITOR PT.
--- NOTE | 2017-03-01 06:34 | NUR ---
DEXTROSE SCANNED FOR KRISTI.ZB FOR CRITICAL LOW GLUCOSE LEVEL. WILL CONTINUE TO MONITOR PT.
[2017-03-01 06:43] LABS: CREATININE 1.07 mg/dL (0.55-1.02); POTASSIUM 3.5 mmol/L (3.5-5.1)
--- NOTE | 2017-03-01 06:55 | NUR ---
ENTERED ROOM TO FIND PT UNAROUASABLE AND DIAPHORESING. BLOOD SUGAR CHECKED BY FRANCISCO MURO AND FOUND IT TO BE CRITICAL LOW. SUGAR REFLEX WAS 24, PULSE OX WAS 88 AND NON REABREATHER AT 15 LITERS A MIN WAS APPLIED. HR WAS LOW 60'S. BP WAS 131/44. DEXTROSE 50% GIVEN IV. RESPONDING REQUESTED.
--- NOTE | 2017-03-01 06:58 | NUR ---
DR. CASH CONTACTED REGARDING PTS. CRITICAL LAB BLOOD GLUCOSE - 24. DR. CASH MADE AWARE OF 2 CRITICAL LOWS AND AWAITING STAT REFLEX. DR. CASH MADE AWARE OF DEXTROSE PUSH AND CURRENT BG OF 141. DR. CASH COMING UP TO FLOOR NOW.
--- NOTE | 2017-03-01 06:59 | NUR ---
DR. CASH ON THE FLOOR AT THIS TIME, IN PTS. ROOM.
[2017-03-01 07:30] VITALS: BP 131/42
[2017-03-01 07:45] VITALS: BP 136/47
--- NOTE | 2017-03-01 07:45 | NUR ---
RECIEVED IN ICCU FROM [facility]. TEMP. 92 [facility]AL[facility] PULSE OX ON 2L NC. FAMILY CALLED AND NOTIFIED OF TRANSFER TO ICCU.
[2017-03-01 08:14] LABS: INTERNATIONAL NORM RATIO 1.9 (2.0-3.5)
--- NOTE | 2017-03-01 08:22 | NUR ---
PER REPORT FROM 5 [facility] STAT LASIX WAS GIVEN PRIOR TO TRANSFER.
[2017-03-01 09:53] LABS: BASO % 0.4 % (0.0-1.0); EOS % 0.2 % (1.0-4.0); HEMATOCRIT 34.6 % (37.0-47.0); HEMOGLOBIN 10.9 g/dl (12.0-16.0); LYMPH # 0.5 10*3/uL (1.3-4.4); LYMPH % 10.5 % (27.0-41.0); MEAN CELL VOLUME 93.5 fl (81.0-99.0); MEAN CORPUSCULAR HGB 29.5 pg (27.0-31.0); MEAN CORPUSCULAR HGB CONC 31.5 g/dl (33.0-37.0); MEAN PLATELET VOLUME 10.1 fl (9.6-12.3); MONO # 0.4 10*3/uL (0.1-1.0); NEUT # 3.8 10*3/uL (2.3-7.9); NEUT % 80.5 % (47.0-73.0); PLATELET COUNT AUTOMATED 157 10*3/uL (130-400); RED CELL DISTRI WIDTH 13.7 % (0-14.5); WHITE BLOOD COUNT 4.8 10*3/uL (4.8-10.8)
--- NOTE | 2017-03-01 10:36 | NUR ---
TRANSFERED VIA [facility] TO [facility] FOR FURTHER TREATMANT AT FAMILY REQUEST.
--- NOTE | 2017-03-01 10:52 | NUR ---
REPORT CALLED TO RN AT [facility].
--- NOTE | 2017-03-03 08:06 | NUR ---
OCCUPATIONAL THERAPY CO-SIGN I approve of the Occupational Therapy notes written above. DANIEL ADHIKARI OTR/Vel
--- NOTE | 2017-03-03 08:18 | NUR ---
PHYSICAL THERAPY CO-SIGN I approve of the Phyical Therapy notes written above. IKE BUTLER PT
== END 2017-03-01 10:36 | disposition short-term general hospital (02) | DRG 689 ==
LOC: ED 17:51 → 5E 20:15 → EDHOLD 20:15 → 5E 20:21 → ICCU 03-01 07:41
PROVIDERS: Internal Medicine; Physician Assistant; Student in an Organized Health Care Education/Training Program; ADMIT Internal Medicine
DX: N39.0 Urinary tract infection, site not specified (principal); G93.41 Metabolic encephalopathy; I13.2 Hypertensive heart and chronic kidney disease with heart failure and with stage 5 chronic kidney disease, or end stage renal disease; E44.0 Moderate protein-calorie malnutrition; E11.22 Type 2 diabetes mellitus with diabetic chronic kidney disease; I12.0 Hypertensive chronic kidney disease with stage 5 chronic kidney disease or end stage renal disease; I27.20 Pulmonary hypertension, unspecified; I48.91 Unspecified atrial fibrillation; E11.42 Type 2 diabetes mellitus with diabetic polyneuropathy; F33.9 Major depressive disorder, recurrent, unspecified; N18.6 End stage renal disease; E78.5 Hyperlipidemia, unspecified; E86.0 Dehydration; K21.9 Gastro-esophageal reflux disease without esophagitis; I50.9 Heart failure, unspecified; M79.2 Neuralgia and neuritis, unspecified; G31.84 Mild cognitive impairment of uncertain or unknown etiology; Z60.2 Problems related to living alone; R62.7 Adult failure to thrive; Z79.01 Long term (current) use of anticoagulants; Z88.2 Allergy status to sulfonamides; Z88.8 Allergy status to other drugs, medicaments and biological substances; Z72.89 Other problems related to lifestyle; Z79.4 Long term (current) use of insulin; Z79.899 Other long term (current) drug therapy; Z95.0 Presence of cardiac pacemaker; Z90.49 Acquired absence of other specified parts of digestive tract; Z98.49 Cataract extraction status, unspecified eye; Z90.710 Acquired absence of both cervix and uterus; Z98.891 History of uterine scar from previous surgery; Z82.3 Family history of stroke; Z80.9 Family history of malignant neoplasm, unspecified; Z99.2 Dependence on renal dialysis; Z99.3 Dependence on wheelchair

== ENCOUNTER 2017-03-25 18:49 | Inpatient (IN) | payer MEDICARE ==
[~2017-03-25] VITALS: Ht 165.1 cm; Wt 85.3 kg
--- NOTE | ~2017-03-25 | EKG ---
[place], [place] ELECTROCARDIOGRAM REPORT NAME: CELENA GOLDSTEIN I UNIT #: [id number] ROOM: [facility] DOCTOR: SILVINA OZUNA MD BIRTHDATE: [birth year] DOS: 03/25/2017 TIME: 1933 hours. FINDINGS: 1. Underlying rhythm is atrial fibrillation with ventricular pacing at 60 beats per minute. 2. No previous tracing is available for comparison. SILVINA OZUNA MD CM:EKGRPT:ELECTROCARDIOGRAM REPORT [id number] SILVINA OZUNA MD
--- NOTE | ~2017-03-25 | PR ---
[place], [place] PROGRESS NOTE NAME[id number] UN[facility] #: [id number] ROOM: [facility] DOCTOR: RON SNOWDEN,JULY BIRTHDATE: [birth year] DOS: SUBJECTIVE: The patient is a pleasant 81-year-old female who is being followed for an ESBL Escherichia coli bacteremia. She had positive blood cultures on the and the . She had an echocardiogram done which shows possible mitral valve vegetations as well as possible vegetations on her pacer leads. She is to have a ROSIO done today. She is currently on Merrem. She has been afebrile. She is tolerating the antibiotics without issue. Denies fevers, chills, nausea, vomiting or diarrhea. No rash or itch. No cough or shortness of breath. She does have lower extremity edema and some constipation. Further review of systems is unremarkable other than she is hard of hearing. CURRENT MEDICATIONS: Include Exelon, Merrem, vitamin D, Levemir, Coumadin, insulin, Ditropan, lactulose, Vistaril, Pepcid, Cardizem, Sinemet, Rocaltrol. LABORATORY DATA: WBC 6.0, platelets 119, BUN 24, creatinine 1.35. AST 88, ALT 18. PHYSICAL EXAMINATION: VITAL SIGNS: Temperatre 98.0, pulse 60, respirations 16, BP 161/58. GENERAL: An 81-year-old female, nontoxic in appearance. HEAD, EYES, EARS, NOSE AND THROAT: Normocephalic, no thrush. NECK: Supple. LUNGS: Diminished bilaterally with rales. Respirations even and unlabored. HEART: Regular rhythm. No murmur appreciated. ABDOMEN: Soft, nontender, nondistended, positive bowel sounds. EXTREMITIES: +3 to 4 edema bilateral lower extremities. SKIN: Warm, dry, pale. Free of rashes. ASSESSMENT AND PLAN: ESBL Escherichia coli bacteremia with GI workup having been negative with possible vegetations on the mitral valve as well as a pacemaker. She is going for a ROSIO today. If it does demonstrate a vegetations on her pacemaker, she will have to be transferred to a tertiary care facility for definitive treatment. Continue the Merrem. Follow up on repeat blood cultures. Case discussed with Dr. Alec Mercado. It is possible that the original bacteremia is from ascending cholangitis as she had an ERCP on 03/12/2017 and a common bile duct dilatation and had stents placed. The stone was left in place due to high INR. I agree with the above plans as described above. We will continue to follow the patient clinically and adjust accordingly. Thank you for allowing me to see the patient and participate in her care. REJI VELASQUEZ CNP [place], [place] PROGRESS NOTE NAME: CELENA GOLDSTEIN I UNIT #: [id number] ROOM: [facility] DOCTOR: RON SNOWDENJULY BIRTHDATE: [birth year] ALEC MERCADO MD CM:JEROME [id number] JULY RON SNOWDEN 03/29/17 1021 interface
--- NOTE | ~2017-03-25 | EKG ---
[place], [place] ELECTROCARDIOGRAM REPORT NAME: CELENA GOLDSTEIN I UNIT #: [id number] ROOM: [facility] DOCTOR: SULMA HARRIS,SILVINA BIRTHDATE: [birth year] DOS: 03/25/2017 TIME: 1933 hours. FINDINGS: 1. Underlying rhythm is atrial fibrillation with ventricular pacing at 60 beats per minute. 2. An abnormal ECG. 3. No previous tracing is available for comparison. SILVINA OZUNA MD CM:EKGRPT:ELECTROCARDIOGRAM REPORT [id number] SILVINA OZUNA MD
[~2017-03-25 18:49] MED LIST changes: -CARDIZEM CD180 MG PO; +CARDIZEM CD240 M1 PO; +LANTUS SOL100 UNIT/1 SQ; -LANTUS100 U/ML SC
[2017-03-25 18:56] VITALS: BP 153/70
--- NOTE | 2017-03-25 19:17 | NUR ---
SKIN TEAR TO RIGHT ELOW WITH A DRESSING CHANGE ON 03/25/2017. ALSO A STAGE 1 PRESSURE ULCER TO THE BUTTOX WITH A DRESSING ON IT. ALSO A STAGE 2 TO THE RIGHT OLVERA.
[2017-03-25 19:45] VITALS: BP 153/76
[2017-03-25 20:00] LABS: HEMOGLOBIN 11.6 g/dl (12.0-16.0); MEAN CELL VOLUME 93.5 fl (81.0-99.0); MEAN CORPUSCULAR HGB 30.1 pg (27.0-31.0); MEAN CORPUSCULAR HGB CONC 32.2 g/dl (33.0-37.0); MEAN PLATELET VOLUME 11.4 fl (9.6-12.3); PLATELET COUNT AUTOMATED 160 10*3/uL (130-400); RED BLOOD COUNT 3.85 10*6/uL (4.10-5.10); RED CELL DISTRI WIDTH 17.3 % (0-14.5); WHITE BLOOD COUNT 9.6 10*3/uL (4.8-10.8)
[2017-03-25 20:06] VITALS: BP 152/43
[2017-03-25 20:16] LABS: ALBUMIN 2.6 gm/dl (3.1-4.5); CREATININE 1.14 mg/dL (0.55-1.02); POTASSIUM 4.5 mmol/L (3.5-5.1); TOTAL PROTEIN 6.5 gm/dL (6.4-8.2)
--- NOTE | 2017-03-25 20:18 | NUR ---
DR OCONNOR NOTIFIED OF TROPONIN LEVEL OF 0.048.
--- NOTE | 2017-03-25 20:21 | NUR ---
PATIENT UNABLE TO URINATE AT THIS TIME. PATIENT REPOSITIONED ONTO HER RIGHT SIDE WITH A PILLOW TO HELP ELEVATE. CALL LIGHT WITHIN REACH. DAUGHTER AT BEDSIDE.
[2017-03-25 20:25] LABS: BURR CELLS FEW; TOTAL CELLS COUNTED 100 #CELLS
[2017-03-25 20:26] LABS: OVALOCYTES FEW; PLATELET SUFFICIENCY NORMAL (NORMAL)
[2017-03-25 20:50] LABS: ACT PARTIAL THROMBO TIME 30.6 SECONDS (20.8-31.5); INTERNATIONAL NORM RATIO 2.1 (2.0-3.5)
[2017-03-25 21:00] VITALS: BP 146/37
--- NOTE | 2017-03-25 21:20 | NUR ---
PER DR. IBRAHIM HE NOW WANTS PATIENT TO GO TO ICCU INSTEAD OF TELEMETRY. FLOOR NURSE NOTIFIED.
[2017-03-25 21:33] VITALS: BP 180/45
--- NOTE | 2017-03-25 21:33 | NUR ---
A 81, admitted to ICCU, under the services of ARON Cuenca MD with a diagnosis of HCAP, SEPSIS. Chief complaint is SHORTNESS OF BREATH. Patient arrived via stretcher from ER. Monitor applied. Initial assessment completed. Vital signs taken and recorded. ARON CUENCA MD notified of admission to the unit. Orders received. See assessment for past medical history, medications and allergies. Patient and/or family oriented to unit. [facility] ICCU visitation policy reviewed. Clothing/patient valuable form completed. VIANEY JOHNSON
[2017-03-25] MEDS ORDERED: RIVASTIGMINE TAR3 M1 PO (22:00)
[2017-03-25] MEDS ORDERED: HEARTBURN RELIE20 MG PO (22:02)
[2017-03-25] MEDS ORDERED: VISTARIL25 MG PO (22:04)
[2017-03-25] MEDS ORDERED: OXYBUTYNIN5 MG PO (22:07)
[2017-03-25] MEDS ORDERED: RIVASTIGMINE T1.5 M1 PO (22:09)
[2017-03-25] MEDS ORDERED: LIPITOR10 MG PO (22:12)
[2017-03-25] MEDS ORDERED: THERAGRAN-M PR1 EACH PO (22:16)
[2017-03-25] MEDS ORDERED: VITAMIN D50000 UNIT PO (22:18)
[2017-03-25] MEDS ORDERED: ARTIFICIAL TEAR1512 OP (22:24)
--- NOTE | 2017-03-25 22:53 | NUR ---
WOUNDS MEASURED. PT UNABLE TO GIVE CONSENT FOR PHOTOGRAPHS AT THIS TIME AND DAUGHTER HAS GONE HOME.
--- NOTE | 2017-03-25 23:20 | NUR ---
DR BHAGAT NOTIFIED OF TROPONIN 0.072. PT SLEEPING WHILE ON BIPAP 03/12 35%... RR 23/MIN AND PULSE OX100%. HR 60/MIN. SKIN W/D. PT AWAKENS EASILY BUT MUMBLES AND UNSURE OF ORIENTATION. CALL LIGHT REINFORCED AND BED EXIT ALARM ON FOR SAFETY.
[2017-03-26] VITALS: BP 150/53
[2017-03-26 01:38] LABS: BILIRUBIN NEGATIVE (NEGATIVE); BLOOD NEGATIVE (NEGATIVE); CLARITY SL CLOUDY (CLEAR); COLOR YELLOW (YELLOW); GLUCOSE NEGATIVE (NEGATIVE); KETONE NEGATIVE (NEGATIVE); LEUKO ESTERASE NEGATIVE (NEGATIVE); NITRITE NEGATIVE (NEGATIVE); UROBILINOGEN 0.2 E.U./dl (0.2-1.0)
--- NOTE | 2017-03-26 01:53 | NUR ---
DR BHAGAT NOTIFIED OF TROP 0.074 AND ADMIT TO SERVICE ORDER CLARIFICATION.
--- NOTE | 2017-03-26 03:38 | NUR ---
PT WAS YELLING OUT, PULLING OFF BIPAP MASK. YELLING FOR WATER. REMOVED FROM BIPAP AND PLACED ON NC3. RESULTING PULSE OX 100%. RR 24/MIN.
[2017-03-26 04:00] VITALS: BP 132/48
--- NOTE | 2017-03-26 05:04 | NUR ---
PT TAKEN OFF BIPAP AT 03:35
[2017-03-26 06:33] LABS: BASO % 0.1 % (0.0-1.0); HEMATOCRIT 32.2 % (37.0-47.0); HEMOGLOBIN 10.4 g/dl (12.0-16.0); LYMPH # 0.8 10*3/uL (1.3-4.4); LYMPH % 5.7 % (27.0-41.0); MEAN CELL VOLUME 93.9 fl (81.0-99.0); MEAN CORPUSCULAR HGB 30.3 pg (27.0-31.0); MEAN CORPUSCULAR HGB CONC 32.3 g/dl (33.0-37.0); MONO # 0.9 10*3/uL (0.1-1.0); MONO % 5.8 % (3.0-9.0); NEUT # 12.9 10*3/uL (2.3-7.9); NEUT % 87.7 % (47.0-73.0); PLATELET COUNT AUTOMATED 139 10*3/uL (130-400); RED BLOOD COUNT 3.43 10*6/uL (4.10-5.10); RED CELL DISTRI WIDTH 17.4 % (0-14.5); WHITE BLOOD COUNT 14.7 10*3/uL (4.8-10.8)
[2017-03-26 06:57] LABS: ALBUMIN 2.1 gm/dl (3.1-4.5); CREATININE 1.29 mg/dL (0.55-1.02); FREE T4 1.73 ng/dl (0.76-1.46); PHOSPHOROUS 3.3 mg/dL (2.5-4.9); POTASSIUM 4.5 mmol/L (3.5-5.1); TOTAL PROTEIN 5.8 gm/dL (6.4-8.2)
[2017-03-26 06:59] LABS: ACT PARTIAL THROMBO TIME 35.1 SECONDS (20.8-31.5); INTERNATIONAL NORM RATIO 2.1 (2.0-3.5)
[2017-03-26 07:08] LABS: THYROID STIM HORMONE (HS) 3.39 uIU/ml (0.358-4.75)
[2017-03-26 08:00] VITALS: BP 169/52
--- NOTE | 2017-03-26 08:00 | NUR ---
Patient comes from [facility], she was there short term rehab. Patient can return when medically stable for discharge.
[2017-03-26 08:28] LABS: VITAMIN D, 25-HYDROXY 32.5 ng/mL (30-100)
--- NOTE | 2017-03-26 08:35 | NUR ---
NOTIFIED OF BLOOD CULTURE RESULT. NEW ORDERS RECEIVED TO CONSULT AND REPEAT BLOOD CULTURES.
--- NOTE | 2017-03-26 08:40 | NUR ---
NOTIFIED OFFICE OF NEW CONSULT.
[2017-03-26 12:00] VITALS: BP 140/60
--- NOTE | 2017-03-26 13:05 | NUR ---
CELENA GOLDSTEIN I [id number] Please refer to the physician's history and physical for past medical history, comorbid conditions, and allergies. Diagnosis: HCAP SEPSIS Kwesi Score: 15,AT RISK WOUND DESCRIPTIONS: Location of the wound: coccyx Type of wound: stage 2 Thickness: Partial Size: 0.4cm x 0.6cm x 0.1cm Tunneling: none Undermining: none Sinus Tract: none Presence of Exudate: Serosanguineous Amount: Light Color: Red Odor: None Periwound Skin Appearance: Normal Wound edges: approximated Pain (associated with wound): none at time of assessment How does patient state this happened? pt unable to state how this happened but daughter states [facility]. Location of the wound: right stapleton Type of wound: skin tear Thickness: Partial Size: 2.0cm x 1.0cm x 0.1cm Tunneling: none Undermining: none Sinus Tract: none Presence of Exudate: Serosanguineous Amount: Light Color: Red Odor: None Periwound Skin Appearance: Normal Wound edges: approximated Pain (associated with wound): none at time of assessment How does patient state this happened? pt unable to state how this happened but daughter states from [facility]. Location of the wound: right upper arm skin Type of wound: skin tear Thickness: Partial Size: 2.0cm x 1.2cm x 0.1cm Tunneling: none Undermining: none Sinus Tract: none Presence of Exudate: Serosanguineous Amount: Light Color: Red Odor: None Periwound Skin Appearance: Normal Wound edges: approximated Pain (associated with wound): none at time of assessment How does patient state this happened? pt unable to state how this happened but daughter states from [facility]. Surface the patient is resting on: Isoflex SKIN PREVENTION RECOMMENDATION: 1. Pressure redistribution support surface as appropriate 2. Elevate heels 3. Remove boots/TEDS every shift and reapply 4. Head of bed 30 degrees as tolerated 5. Assess nutrition and hydration 6. Manage moisture 7. Avoid the use of containment devices while in bed 8. Use absorptive products on surfaces limit layers of linens on bed 9. Turn and reposition every 1-2 hours in bed and every 1 hour in chair as tolerated 10. Weight shifts every 15 minutes while up in chair 11. Offloading with pillows or device to keep heels elevated off bed 12. Monitor skin at least every shift 13. Inspect under medical devices twice a day WOUND TREATMENT RECOMMENDATIONS: Stg 2 guidelines NSS, sureprep, therahoney, optifoam gentle right upper arm and right stapleton nss, sureprep, therahoney, optifoam gentle. wheelchair cushion while oob.
[2017-03-26 16:00] VITALS: BP 147/53
--- NOTE | 2017-03-26 19:45 | NUR ---
DAUGHTER WAS AT BEDSIDE. PT WITHOUT COMPLAINTS OR DISTRESS. ORDER FOR ARTIFICIAL TEARS FOR DRY EYES OBTAINED FROM DR ARREGUIN PER REQUEST OF PT AND FAMILY MEMBER. PT ATE 2 SHERBERTS WITHOUT DIFFICULTY.
[2017-03-26 20:00] VITALS: BP 144/49
--- NOTE | 2017-03-26 22:30 | NUR ---
MORPHINE GIVEN AT 2215 FOR PT C/O BACK PAIN EFFECTIVE....PT DOZING, BODY RELAXED. RR 16/MIN AND HR 60/MIN.
[2017-03-27] VITALS: BP 140/60
[2017-03-27 04:00] VITALS: BP 154/49
--- NOTE | 2017-03-27 05:27 | NUR ---
PT HAD BEEN ASKING FOR TYLENOL FOR CHRONIC BACK AND HIP PAIN. INFORMED THAT SHE CANNOT HAVE TYLENOL DUE TO ELEVATED LIVER LABWORK. WAS MEDICATED AT 0500 WITH 1MG MORPHINE ORDERED. PT PLACED ON BEDPAN, VOIDED, POSITIONED FOR COMFORT. MORPHINE APPEARS TO BE EFFECTIVE. PT DOZING...BODY RELAXED.
[2017-03-27 06:06] LABS: CREATININE 1.39 mg/dL (0.55-1.02); POTASSIUM 3.6 mmol/L (3.5-5.1); TOTAL PROTEIN 5.4 gm/dL (6.4-8.2)
[2017-03-27 06:08] LABS: BASO # 0.1 10*3/uL (0.0-0.1); BASO % 0.6 % (0.0-1.0); EOS # 0.1 10*3/uL (0.0-0.4); EOS % 1.5 % (1.0-4.0); HEMATOCRIT 30.8 % (37.0-47.0); HEMOGLOBIN 9.8 g/dl (12.0-16.0); LYMPH # 1.2 10*3/uL (1.3-4.4); LYMPH % 13.7 % (27.0-41.0); MEAN CELL VOLUME 94.8 fl (81.0-99.0); MEAN CORPUSCULAR HGB 30.2 pg (27.0-31.0); MEAN CORPUSCULAR HGB CONC 31.8 g/dl (33.0-37.0); MEAN PLATELET VOLUME 11.6 fl (9.6-12.3); MONO # 0.6 10*3/uL (0.1-1.0); MONO % 6.9 % (3.0-9.0); NEUT # 6.5 10*3/uL (2.3-7.9); NEUT % 76.9 % (47.0-73.0); PLATELET COUNT AUTOMATED 135 10*3/uL (130-400); RED BLOOD COUNT 3.25 10*6/uL (4.10-5.10); RED CELL DISTRI WIDTH 17.5 % (0-14.5); WHITE BLOOD COUNT 8.5 10*3/uL (4.8-10.8)
[2017-03-27 08:00] VITALS: BP 138/52
--- NOTE | 2017-03-27 09:30 | NUR ---
NOTIFIED OF NEW CONSULT ORDER.
[2017-03-27 12:00] VITALS: BP 134/56
--- NOTE | 2017-03-27 13:45 | NUR ---
Faxed patient information, progress notes and updates to kristen at [facility] per her request for review. Patient can return to [facility] when medically stable for discharge.
--- NOTE | 2017-03-27 15:22 | NUR ---
NOTIFIED OF NEW CONSULT ORDER.
--- NOTE | 2017-03-27 15:32 | NUR ---
Shift chart check completed.24 HR chart check completed.
[2017-03-27 16:00] VITALS: BP 142/55
--- NOTE | 2017-03-27 16:32 | NUR ---
PT DRANK ENTIRE FIRST BOTTLE OF CT PREP AND WOULD NOT DRINK THE SECOND BOTTLE. CT DEPARTMENT MADE AWARE. NO VOICED COMPLAINTS OF PAIN AT PRESENT. DAUGHTER AT BEDSIDE.
--- NOTE | 2017-03-27 17:02 | NUR ---
I PHONED DR SMALLWOOD TO VERIFY OKAY TO GIVEN PO COUMADIN TONIGHT. DR SMALLWOOD STILL IN HOUSE WITH DR CERRATO AND SAID OK TO GIVE.
--- NOTE | 2017-03-27 17:53 | NUR ---
PT ACCOMPANIED TO AND FROM RADIOLOGY FOR CT SCAN OF ABDOMEN. TOLERATED WELL.
[2017-03-27 20:00] VITALS: BP 146/57
[2017-03-28] VITALS (10 sets, daily range): BP systolic 127–163; BP diastolic 36–81
[2017-03-28 04:45] LABS: BASO % 0.7 % (0.0-1.0); EOS # 0.1 10*3/uL (0.0-0.4); EOS % 2.3 % (1.0-4.0); HEMATOCRIT 29.6 % (37.0-47.0); HEMOGLOBIN 9.5 g/dl (12.0-16.0); LYMPH % 16.4 % (27.0-41.0); MEAN CELL VOLUME 94.6 fl (81.0-99.0); MEAN CORPUSCULAR HGB 30.4 pg (27.0-31.0); MEAN CORPUSCULAR HGB CONC 32.1 g/dl (33.0-37.0); MEAN PLATELET VOLUME 10.8 fl (9.6-12.3); MONO # 0.5 10*3/uL (0.1-1.0); MONO % 7.6 % (3.0-9.0); NEUT # 4.4 10*3/uL (2.3-7.9); NEUT % 72.7 % (47.0-73.0); PLATELET COUNT AUTOMATED 119 10*3/uL (130-400); RED BLOOD COUNT 3.13 10*6/uL (4.10-5.10); RED CELL DISTRI WIDTH 17.3 % (0-14.5)
[2017-03-28 04:54] LABS: INTERNATIONAL NORM RATIO 2.5 (2.0-3.5)
[2017-03-28 05:00] LABS: ALBUMIN 1.9 gm/dl (3.1-4.5); CREATININE 1.35 mg/dL (0.55-1.02); TOTAL PROTEIN 5.2 gm/dL (6.4-8.2)
--- NOTE | 2017-03-28 07:20 | NUR ---
DR. WHITTAKER NOTIFIED OF POSITIVE BLOOD CULTURES FOR ECOLI. STATES TO NOTIFY INFECTIOUS DISEASE OF +BC. DR. PIÑA NOTIFIED. NO NEW ORDERS RECEIVED AT THIS TIME. TRICIA BARKER RN
--- NOTE | 2017-03-28 11:36 | NUR ---
PHYSICAL THERAPY EVALUATION Pt seen this date for physical therapy evaluation while on ICCU. Moderate complexity determined based on comorbidities and current function. Pt required 2 assist for transfers with recommendation to return to SNF for further skilled care. Refer to evaluation for complete details. Thank you for this referral. Jessa Sharma, PT
--- NOTE | 2017-03-28 12:47 | NUR ---
PHYSICAL THERAPY Victoria off the floor this PM therapy visit, down for her ROSIO. FRANCISCO AG SERVICE TECH.
[2017-03-28] MEDS ORDERED: MEROPENEM1 G1 IV (13:26)
--- NOTE | 2017-03-28 13:29 | NUR ---
1200 or HERE TO SURGERY via bed. 1330 Recieved call from [facility] one call for demographics. Faxed, Family here and aware of transfer.
--- NOTE | 2017-03-28 14:16 | NUR ---
Returned from OR , stable. Transfer out pending bed assignment.
--- NOTE | 2017-03-28 16:15 | NUR ---
[facility] was called for update on bed assignment. None available at this time.
[2017-03-29] VITALS: BP 135/63
[2017-03-29 04:00] VITALS: BP 144/57
--- NOTE | 2017-03-29 05:00 | NUR ---
CHECKED PATIENTS BLOOD GLUCOSE WHICH WAS 68 PATIENT ASYMPTOMATIC PATIENT GIVEN OJ WITH SUGAR.
--- NOTE | 2017-03-29 06:06 | NUR ---
RECHECKED PATIENTS BLOOD GLUCOSE IT IS NOW 84. PATIENT RESTING COMFORTABLY.
[2017-03-29 06:08] LABS: BASO % 0.4 % (0.0-1.0); EOS # 0.1 10*3/uL (0.0-0.4); EOS % 1.7 % (1.0-4.0); HEMATOCRIT 33.6 % (37.0-47.0); HEMOGLOBIN 10.6 g/dl (12.0-16.0); LYMPH # 1.4 10*3/uL (1.3-4.4); LYMPH % 25.1 % (27.0-41.0); MEAN CELL VOLUME 93.1 fl (81.0-99.0); MEAN CORPUSCULAR HGB 29.4 pg (27.0-31.0); MEAN CORPUSCULAR HGB CONC 31.5 g/dl (33.0-37.0); MEAN PLATELET VOLUME 11.6 fl (9.6-12.3); MONO # 0.6 10*3/uL (0.1-1.0); MONO % 10.4 % (3.0-9.0); NEUT # 3.3 10*3/uL (2.3-7.9); RED BLOOD COUNT 3.61 10*6/uL (4.10-5.10); RED CELL DISTRI WIDTH 17.5 % (0-14.5); WHITE BLOOD COUNT 5.4 10*3/uL (4.8-10.8)
[2017-03-29 06:11] LABS: PLATELET COUNT AUTOMATED 156 10*3/uL (130-400)
[2017-03-29 06:34] LABS: INTERNATIONAL NORM RATIO 2.7 (2.0-3.5)
[2017-03-29 06:35] LABS: ALBUMIN 2.1 gm/dl (3.1-4.5); CREATININE 1.32 mg/dL (0.55-1.02)
[2017-03-29 08:00] VITALS: BP 136/68
--- NOTE | 2017-03-29 09:11 | NUR ---
PT TRANSFERRED TO [facility]IA [facility]. DAUGHTER AT BEDSIDE AND PROVIDED WITH ADDRESS. PT REFUSED TO HAVE ANYMORE PHOTOS TAKEN OF WOUNDS. UPPER AND LOWER DENTURES ARE IN PT'S MOUTH.
--- NOTE | 2017-03-29 10:35 | NUR ---
NURSE TO NURSE COMPLETE.
--- NOTE | 2017-04-01 08:18 | NUR ---
PHYSICAL THERAPY CO-SIGN I approve of the Phyical Therapy notes written above. BOBBY MARRERO PT
--- NOTE | 2017-04-01 14:27 | NUR ---
OCCUPATIONAL THERAPY CO-SIGN I approve of the Occupational Therapy notes written above. VEGA CASANOVA
== END 2017-03-29 10:35 | disposition short-term general hospital (02) | DRG 314 ==
LOC: ED 18:49 → EDHOLD 20:41 → ICCU 20:41 → 5E 21:02 → ICCU 21:22
PROVIDERS: Family Medicine; Hospitalist; Student in an Organized Health Care Education/Training Program; ADMIT Internal Medicine
PROC: 5A09357 Assistance with Respiratory Ventilation, Less than 24 Consecutive Hours, Continuous Positive Airway Pressure (ICD-10-PCS; principal; 2017-03-26)
PROC: B246ZZ4 Ultrasonography of Right and Left Heart, Transesophageal (ICD-10-PCS; 2017-03-28)
DX: T82.7XXA Infection and inflammatory reaction due to other cardiac and vascular devices, implants and grafts, initial encounter (principal); A41.51 Sepsis due to Escherichia coli [E. coli]; E43 Unspecified severe protein-calorie malnutrition; I33.0 Acute and subacute infective endocarditis; J18.9 Pneumonia, unspecified organism; G93.41 Metabolic encephalopathy; R65.20 Severe sepsis without septic shock; D68.59 Other primary thrombophilia; N18.4 Chronic kidney disease, stage 4 (severe); I13.0 Hypertensive heart and chronic kidney disease with heart failure and stage 1 through stage 4 chronic kidney disease, or unspecified chronic kidney disease; I50.32 Chronic diastolic (congestive) heart failure; E11.22 Type 2 diabetes mellitus with diabetic chronic kidney disease; E11.65 Type 2 diabetes mellitus with hyperglycemia; I27.20 Pulmonary hypertension, unspecified; I08.1 Rheumatic disorders of both mitral and tricuspid valves; E83.42 Hypomagnesemia; I48.2 Chronic atrial fibrillation; M19.90 Unspecified osteoarthritis, unspecified site; F32.9 Major depressive disorder, single episode, unspecified; F41.1 Generalized anxiety disorder; K21.9 Gastro-esophageal reflux disease without esophagitis; H91.90 Unspecified hearing loss, unspecified ear; Y95 Nosocomial condition; R74.8 Abnormal levels of other serum enzymes; Y83.8 Other surgical procedures as the cause of abnormal reaction of the patient, or of later complication, without mention of misadventure at the time of the procedure; F03.90 Unspecified dementia, unspecified severity, without behavioral disturbance, psychotic disturbance, mood disturbance, and anxiety; B96.89 Other specified bacterial agents as the cause of diseases classified elsewhere; E11.649 Type 2 diabetes mellitus with hypoglycemia without coma; Z16.12 Extended spectrum beta lactamase (ESBL) resistance; E80.6 Other disorders of bilirubin metabolism; K59.00 Constipation, unspecified; K57.90 Diverticulosis of intestine, part unspecified, without perforation or abscess without bleeding; R74.0 Nonspecific elevation of levels of transaminase and lactic acid dehydrogenase [LDH]; E78.2 Mixed hyperlipidemia; D64.9 Anemia, unspecified; Z90.49 Acquired absence of other specified parts of digestive tract; Z90.710 Acquired absence of both cervix and uterus; Z82.3 Family history of stroke; Z80.9 Family history of malignant neoplasm, unspecified; Z79.01 Long term (current) use of anticoagulants; Z99.81 Dependence on supplemental oxygen; Z88.1 Allergy status to other antibiotic agents; Z88.2 Allergy status to sulfonamides; Z88.8 Allergy status to other drugs, medicaments and biological substances; Z79.4 Long term (current) use of insulin; Z87.440 Personal history of urinary (tract) infections; Z68.33 Body mass index [BMI] 33.0-33.9, adult; Z79.899 Other long term (current) drug therapy; Y92.89 Other specified places as the place of occurrence of the external cause

== ENCOUNTER 2017-04-11 12:58 | Inpatient (IN) | payer MEDICARE ==
[2017-04-11] VITALS (7 sets, daily range): BP systolic 90–147; BP diastolic 43–89
[~2017-04-11] VITALS: Ht 162.6 cm; Wt 85.7 kg
--- NOTE | ~2017-04-11 | WRIGHTHP ---
[place], [place] PATIENT HISTORY AND PHYSICAL EXAM NAME: CELENA GOLDSTEIN I [facility] #: [id number] UNIT #: [id number] ROOM: 508 DOCTOR: NADINE MANUEL MD BIRTHDATE: [birth year] DOS: 04/12/2017 HISTORY OF PRESENT ILLNESS: The patient has been admitted to hospital as emergency admission and she was brought from the [facility] there with history of feeling very weak and she was admitted to hospital 4 weeks ago with urosepsis and was admitted to this hospital and sent to [place] from which she recovered quite satisfactorily and was sent to the [facility] and now she was not feeling good and came back to the Emergency Department. PAST MEDICAL HISTORY: The patient has past history of acute kidney failure with tubular necrosis, ____ occlusion, lower extremity arthritis, congestive heart failure, chronic atrial fibrillation, CKD stage IV, constipation, depression, diverticulosis, elevated troponin level in the past, encephalopathy, hypertension, generalized anxiety disorder, GERD syndrome, hard of hearing, hematuria, history of deep vein thrombosis, hypoglycemia, urinary tract infection, pulmonary hypertension, tricuspid regurgitation and type 2 diabetes mellitus. The patient had previous history of pulmonary embolism also. PAST SURGICAL HISTORY: History of appendectomy, cataract surgery, cholecystectomy, hysterectomy and she has permanent pacemaker placed in. SOCIAL HISTORY: The patient does not drink, does not smoke, does not use any illicit drug. FAMILY HISTORY: There is history of cerebral infarction and malignant neoplasm in the family. ALLERGIES: THE PATIENT IS ALLERGIC TO LISINOPRIL, LOVASTATIN, NIACIN AND SULFA. MEDICATIONS: She is taking following medication at present. Coumadin 6 mg daily, Sinemet ____ three times daily, lactulose 20 mg daily, insulin glargine 10 units at bedtime, Diltiazem 240 mg daily, rivastigmine tartrate 3 mg twice daily, Pepcid 20 mg daily, Vistaril 25 mg twice daily, oxybutynin 5 mg daily, Lipitor 10 mg daily, eye drops, vitamin D 50,000 units once a week. PHYSICAL EXAMINATION: GENERAL: The patient seems to be somewhat restless and complaining of irritation on the skin and also having some pain in the arms, mostly on the right side. VITAL SIGNS: Blood pressure 133/42, pulse 58, respirations 16 and temperature 97.6. The patient is hard of hearing and she is having swelling of the right forearm and hand with blisters on it indicating cellulitis and blister due to cellulitis. HEENT: ENT examination unremarkable. Tongue is coated and dry. NECK: Veins are not distended. HEART: Irregular due to atrial fibrillation. LUNGS: Having increased expiration. No crepitation. ABDOMEN: Soft. Liver and spleen not palpable. No area of tenderness. No mass felt. EXTREMITIES: No edema of leg. [place], [place] PATIENT HISTORY AND PHYSICAL EXAM NAME[id number] #: [id number] ROOM: 508 DOCTOR: NADINE MANUEL MD BIRTHDATE: [birth year] NEUROLOGIC: No localized neurological deficit observed having painful movement of the hips and the knees. DIAGNOSES: Cellulitis of the right forearm with acute renal failure, peripheral vascular disease, arthritis, congestive heart failure, dehydration, chronic atrial fibrillation, stage 4 kidney failure, constipation, depression, encephalopathy, essential hypertension, generalized weakness, gastroesophageal reflux disease syndrome, past history of pulmonary embolism, metabolic encephalopathy, mitral regurgitation, mixed hyperlipidemia, moderate protein calorie malnutrition, pulmonary hypertension, type 2 diabetes mellitus and urinary tract infection. Her lactic acid level was 1, which is normal. CBC shows WBC 6.2, hemoglobin 7.8, hematocrit 24.1 indicating hypochromic anemia possibly due to chronic renal failure. Protime was 50.5, which is high. I am going to hold her Coumadin today and start from tomorrow 2.5 mg daily. Chest x-ray shows small bilateral pleural effusion and opacity in the left lower lobe. Ultrasound of the upper extremity shows no evidence of deep vein thrombosis. CAT scan of the abdomen showed constipation with large volume of stools in the distal rectosigmoid to chronic diverticulosis, no diverticulitis and bilateral pleural effusion. Urine examination shows 1+ yeast, no leuk esterase, 0-2 wbc's. Protime today is 27.7. Vitamin B12, folic acid and vitamin D levels are normal. PLAN OF TREATMENT: The patient will give intravenous antibiotic and to cut her Coumadin 2.5 mg daily and continue all her home medication and elevate her left hand, put Neosporin ointment on it 3 times daily. Give clindamycin 300 mg twice daily along with vancomycin 1 gram daily. NADINE MANUEL MD CM:HISPHYS:PATIENT HISTORY AND PHYSICAL EXAMINATION 1425 [id number] NADINE MANUEL MD 04/16/17 0807 interface
--- NOTE | ~2017-04-11 | CON ---
[place], [place] REPORT OF CONSULTATION NAME: CELENA GOLDSTEIN I UNIT #: [id number] ROOM: 508 DOCTOR: AHSAN PEREZ MD BIRTHDATE: [birth year] DOS: 04/14/2017 HISTORY OF PRESENT ILLNESS: The patient is a pleasant 82-year-old Euro-Micronesian woman, zachariah, who was brought by the Emergency Department because of low oxygen saturation at the [facility]. She was recently admitted for UTI and altered mental status. Subsequently, at that time, she was transferred to [place], as per family's request. She was restrained for 2 weeks during which she aspirated and was treated there as well as for UTI. She was discharged to rehab at [facility]. While at the [facility], her oxygen saturation dropped and they called EMS and she was brought in and was thought to have pneumonia. On routine CBC examination, she was found to have progressive anemia and consulting for further evaluation and management. PAST MEDICAL HISTORY: As per record, history of arthritis, chronic congestive heart failure, chronic AFib, chronic kidney disease stage 4, constipation, depression, diverticulosis, encephalopathy, essential hypertension, GERD, history of hard of hearing, hyperbilirubinemia, hypercoagulable state, mitral regurgitation, mixed hyperlipidemia, pulmonary hypertension, transaminitis, and tricuspid regurgitation. PAST SURGICAL HISTORY: Cardiac pacemaker, appendectomy, cataract extraction, cholecystectomy, and hysterectomy. SOCIAL HISTORY: No smoking, drinking, or drug abuse. FAMILY HISTORY: Consistent with cerebral infarction and malignant neoplasm. ALLERGIES: LISINOPRIL, LOVASTATIN, NIACIN, AND SEPTRA. MEDICATIONS: On Lipitor, calcitriol, Sinemet, vitamin D, artificial tears, Cardizem, famotidine, Restoril, lactulose, oxybutynin, rivastigmine tartrate, and warfarin. PHYSICAL EXAMINATION: GENERAL: She is a pleasant woman in no acute distress. Not able to give a full history because of altered mental status. VITAL SIGNS: Stable. She is afebrile. My new female patient. HEENT: Oral mucosa appears intact. The external ears are normal in appearance. Nares are patent without lesions, exudates, erythema, or inflammation. Tongue is symmetrical. Uvula is midline. NECK AND THYROID: Neck supple without palpable masses. Trachea is midline. No thyromegaly. No carotid bruit or JVD. BREASTS: Normal. Nipples unremarkable. No drainage. No lumps felt on either side. HEART: Normal S1, S2, without significant murmur, rub, or gallop. LUNGS: Clear to auscultation and percussion with good air entry bilaterally. The patient is breathing easily without the use of accessory muscles. Diaphragmatic excursions are intact. ABDOMEN: No costovertebral angle tenderness. Soft. No organomegaly or masses. Nontender. No hernias present. Liver and spleen are not palpable. [place], [place] REPORT OF CONSULTATION NAME: CELENA GOLDSTEIN I UNIT #: [id number] ROOM: 508 DOCTOR: AHSAN PEREZ MD BIRTHDATE: [birth year] LYMPHATIC: No adenopathy noted in the cervical, supraclavicular, axillary, or inguinal regions. NEUROLGIC: Nonfocal. Oriented to person, place, and time. MENTAL STATUS: Appropriate for mood and affect. PERIPHERAL PULSES: No varicosities. Femoral and pedal pulses are palpable. EXTREMITIES: Without cyanosis, clubbing, or edema. No gross anomalies. REVIEW OF SYSTEMS: The patient unable to give review of systems because of altered mental status. LABORATORY DATA: Labs from 04/14/2017, white count of 5.6, hemoglobin 7.7, hematocrit 23.3, platelet count of 179. Glucose 153, EGFR 32, sodium 138, potassium 4.7, chloride 99, bicarbonate 32, and calcium 9.3. ASSESSMENT: 1. Anemia, probably chronic disease. 2. Chronic renal failure. 3. Escherichia coli bacteremia. PLAN: Workup for anemia has been started. We will keep a close watch on the counts. We will give a unit of packed RBC and follow her counts closely. In the meantime, continue broad spectrum antibiotics. Review peripheral smears and old records. Depending on the above, further intervention discussed with the daughter in detail. We will follow. Thanks for consulting and letting participate in the care of this interesting patient. AHSAN PEREZ MD CM:CONSTR:REPORT OF CONSULTATION 0937 04/14/17 1034 interface
--- NOTE | ~2017-04-11 | PR ---
[place], [place] PROGRESS NOTE NAME: CELENA GOLDSTEIN I UNIT #: [id number] ROOM: 508 DOCTOR: NADINE MANUEL MD BIRTHDATE: [birth year] DOS: 04/13/2017 The patient has been admitted to the hospital with severe cellulitis and swelling of the right arm with some blisters and multiple other medical problems with hypercoagulability and has been seen by Infectious Disease person and according to them, they have advised to remove her PICC line, which will be removed today and started her on Keflex 500 mg with doxycycline. Patient's swelling of the right hand is much better. She is more alert and oriented today as compared to yesterday. She is also having history of arthritis, congestive heart failure, atrial fibrillation, chronic kidney disease, depression, diverticulosis, hypertension, GERD, hard of hearing, history of pulmonary embolism, mitral regurgitation and also hypochromic anemia. Her hemoglobin today is 6.8, hematocrit 21.3, which is worse than yesterday, but maybe due to improvement of her dehydration. Her protime today is 12.5. Basic metabolic panel today showed glucose 115, BUN 47, creatinine 1.56, GFR 32. Her blood pressure is 137/40, pulse 60, respirations 20, temperature 97.3. Heart irregular. Chest is in atrial fibrillation. Abdomen is soft. Swelling of right arm is better. NADINE MANUEL MD CM:PNTRANS 5 [id number] NADINE MANUEL MD 04/13/17 2253 interface
--- NOTE | ~2017-04-11 | PR ---
[place], [place] PROGRESS NOTE NAME: CELENA GOLDSTEIN I UNIT #: [id number] ROOM: 508 DOCTOR: JESS HARRIS,ALEC Decker BIRTHDATE: [birth year] DOS: 04/13/2017 ADDENDUM. I agree with the above plans as described. We will follow the patient up clinically and adjust accordingly. ALEC MERCADO MD CM:PNTRANS 0725 [id number] ALEC MERCDAO MD 04/14/17 1323 interface
--- NOTE | ~2017-04-11 | PR ---
[place], [place] PROGRESS NOTE NAME: CELENA GOLDSTEIN I UNIT #: [id number] ROOM: 508 DOCTOR: JESS HARRIS,ALEC Decker BIRTHDATE: [birth year] DOS: 04/12/2017 ADDENDUM After reviewing chart, labs, radiographs and microbiology, I agree with the plans as described above. We will follow the patient up clinically and adjust accordingly. ALEC MERCADO MD CM:PNTRANS 0744 [id number] ALEC MERCADO MD 04/14/17 0735 interface
--- NOTE | ~2017-04-11 | PR ---
[place], [place] PROGRESS NOTE [id number] #: [id number] ROOM: 508 DOCTOR: RON SNOWDEN,JULY BIRTHDATE: [birth year] DOS: SUBJECTIVE: The patient is an 82-year-old female. She had been here around 03/28/2017, have positive blood cultures for ESBL E. coli. She had an echo at that time that showed a possible vegetation on the mitral valve as well as a pacemaker wire. She was transferred to [facility], they did not wish to remove her pacemaker at that time, instead chose to finish up 2 weeks of IV antibiotics. She completed Merrem yesterday. She was discharged from [facility] to [place]. She came in from [place] due to significant swelling of the right arm. Her ultrasound was negative for DVT. Admitting blood cultures now with one bottle of four from the [facility] with gram-positive cocci in clusters, took 48 hours to grow this likely contaminant. She has been afebrile. She is alert. The arm looks better today. She was given doxycycline for possible right arm cellulitis. She has significant volume overload. She is complaining of shortness of breath, though little cough. No nausea, vomiting or diarrhea. She has been afebrile. LABORATORY DATA: Show WBC is 5.2, platelets 187, BUN 47, creatinine 1.56. REVIEW OF SYSTEMS: An 82-year-old female, very hard of hearing, seems to be somewhat confused. She is calling out for [place] and complaining of shortness of breath. Unable to obtain further review of systems from the patient. CURRENT MEDICATIONS: Include Coumadin, Lasix, Calazime, doxycycline, Vistaril, Benadryl, mag oxide, lactulose, Pepcid, Cardizem, Norvasc, insulin Levemir, Restoril, Zofran, Dulcolax, Tylenol, Lasix, [place]. PHYSICAL EXAMINATION: VITAL SIGNS: Show temperature 97.9, pulse 58, respirations 18, BP 122/43. GENERAL: An 82-year-old female. HEENT: Normocephalic, no visible thrush. NECK: Seems supple. LUNGS: Diminished bilaterally. Respirations slightly labored. HEART: Regular rhythm with murmur noted. ABDOMEN: Soft, seems nontender, positive bowel sounds. EXTREMITIES: Plus +3 edema bilateral lower extremities. Bilateral upper extremities +4 edema, right slightly larger than the left. Color of the right arm has improved. PICC line was removed yesterday. SKIN: Warm, dry, free of rashes. She has multiple blisters on the dorsum of the right hand, so they have improved since yesterday. ASSESSMENT: Possible endocarditis and infected pacemaker with ESBL E. coli. She completed Merrem yesterday. She is going to need to have repeat blood cultures done in a week to 10 days. She also has a new bacteremia, gram-positive cocci in clusters, 1 of 4 bottles at 48 hours. This is likely a contaminant. We will continue the doxycycline for now for a possible mild cellulitis of the right upper extremity, color has significantly improved since PICC line was removed. She has a massive volume overload. I will give her an extra 40 mg of Lasix tonight. Case discussed with Dr. Alec Mercado. [place], [place] PROGRESS NOTE NAME: TRISTONCELENA PANG I UNIT #: [id number] ROOM: 508 DOCTOR: RON SNOWDENJULY BIRTHDATE: [birth year] JULY SP VELASQUEZ ALEC MERCADO MD CM:JEROME 29 26 RON SNOWDEN 04/13/171826 interface
--- NOTE | ~2017-04-11 | CON ---
[place], [place] REPORT OF CONSULTATION NAME: CELENA GOLDSTIEN I UNIT #: [id number] ROOM: 508 DOCTOR: RON SNOWDEN,JULY BIRTHDATE: [birth year] DOS: 04/12/2017 HISTORY OF PRESENT ILLNESS: The patient is an unfortunate 82-year-old female. She is admitted from [facility] for a right upper extremity swelling and discomfort. She has a PICC line in the right arm. She was actually transferred from [facility] on 03/28/[address] [facility]. She had an ESBL Escherichia coli bacteremia. She had a ROSIO done, which demonstrated possible vegetation on the mitral valve as well as a vegetation on her pacer wire. She was placed on Merrem by [facility] and discharged to [facility]. I have obtained records from [place]. There are also from [facility]. She will complete Merrem today. According to the patient's daughter who I contacted, [facility] did not want to remove the pacemaker unless absolutely necessary. Therefore, they opted for 2 weeks of IV antibiotics and then they would see how she did, whether or not the infection recurred. She did have an ERCP in early March and stenting for a stone, and it was thought that her valve and pacemaker may have been seated at that point. At this point, she has been afebrile. She was placed on oral clindamycin and IV vancomycin for possible cellulitis of the right arm. The patient herself is extremely hard of hearing and is unable to give any history or participate in review of systems: She does have poor appetite as evidenced by currently refusing to eat. No emesis or diarrhea. She does have pain of the right arm when it is moved. She has been afebrile since admission. PAST MEDICAL HISTORY: As above as well as arthritis, CHF, AFib on chronic anticoagulation, chronic kidney disease, depression, diverticulosis, hypertension, general anxiety disorder, GERD, very hard of hearing, hyperbilirubinemia, blood clots, mitral regurgitation, hypertension, hyperlipidemia, tricuspid regurgitation, diabetes, appendectomy, cataract extraction, cholecystectomy, hysterectomy, cardiac pacemaker placement. SOCIAL HISTORY: Nonsmoker, nondrinker, no illicit drug use. FAMILY MEDICAL HISTORY: Significant for cerebral infarction of malignant neoplasm. FAMILY MEDICAL HISTORY: Not pertinent given chief complaint. ALLERGIES: Include LISINOPRIL, LOVASTATIN, NIACIN and SEPTRA. LABORATORY DATA: Blood cultures from admission are negative. WBC 7.3, platelets 228, BUN 43, creatinine 1.54. UA is negative for pyuria. CURRENT MEDICATIONS: Include Coumadin, Neosporin, Calazime, oral clindamycin, Vistaril, Benadryl, magnesium oxide, Cephulac, Pepcid, Cardizem, Norvasc, Levemir, Sinemet, vancomycin, Restoril, Zofran, Dulcolax, Tylenol, Lasix, [place]. REVIEW OF SYSTEMS: As above in history of present illness, unable to obtain any further review of systems from patient. She has been afebrile. [place], [place] REPORT OF CONSULTATION NAME: CELENA GOLDSTEIN I UNIT #: [id number] ROOM: 508 DOCTOR: RON SNOWDEN,JULY BIRTHDATE: [birth year] PHYSICAL EXAMINATION: VITAL SIGNS: Show temperature 97.2, pulse 55, respirations 20, BP 142/52. GENERAL: An 82-year-old female, very hard of hearing, in no acute distress, refusing to eat currently. HEAD, EYES, EARS, NOSE AND THROAT: Normocephalic, no thrush. LUNGS: Diminished bilaterally with crackles in the bases. Respirations are even and unlabored. HEART: Irregular rhythm. No murmur appreciated. Left chest pacer is unremarkable. ABDOMEN: Soft, nontender, positive bowel sounds. EXTREMITIES: Left upper extremity, +3 edema. Right upper extremity +4 edema, weeping serosanguineous discharge. There is no odor, no purulence. She does have blood blisters on the back of her hand. Does have PICC in place. Dressing saturated. Bilateral lower extremities, +2 to 3 edema. Bonds catheter draining clear yellow urine. SKIN: Otherwise, warm, dry, poor color, free of rashes. ASSESSMENT: ESBL E. coli bacteremia, to complete the antibiotics today. At this point, we will stop the IV vancomycin. Her PICC line needs to be removed to help with the edema of the arm. We can change her oral clindamycin to Keflex. We will give her doxycycline, stop the clindamycin, stop the oral IV vancomycin. Start doxycycline 100 mg twice a day, which will cover for MRSA. If possible, we will give her 1 more dose of ertapenem, which will carry through for 24 hours for completion of her antibiotics for her ESBL E. coli bacteremia. She does have possible endocarditis as well as pacemaker infection. I discussed with her daughter at length. She is going to need repeat blood cultures in 10-14 days to help evaluate her pacemaker. Case discussed with Dr. Alec Mercado. REJI VELASQUEZ CNP ALEC MERCADO MD CM:CONSTR:REPORT OF CONSULTATION 1831 04/13/17 0110 interface
[~2017-04-11 12:58] MED LIST changes: +ARTIFICIAL TEAR1512 OP; +HEARTBURN RELIE20 MG PO; +LIPITOR10 MG PO; +MEROPENEM1 G1 IV; +RIVASTIGMINE T1.5 M1 PO; +RIVASTIGMINE TAR3 M1 PO; +THERAGRAN-M PR1 EACH PO; +VISTARIL25 MG PO; +VITAMIN D50000 UNIT PO
[2017-04-11] MEDS ORDERED: NORVASC5 MG PO (13:28)
[2017-04-11] MEDS ORDERED: LASIX20 MG PO (13:28)
[2017-04-11] MEDS ORDERED: WARFARIN SODIUM5 MG PO (13:29)
[2017-04-11] MEDS ORDERED: MAGNESIUM OXID400 MG PO (13:30)
[2017-04-11] MEDS ORDERED: THERAGRAN-M PR1 EACH PO (13:31)
[2017-04-11] MEDS ORDERED: VICODIN 5-3001 EACH PO (13:32)
[2017-04-11] MEDS ORDERED: MEROPENEM-500 MG/50 IV (13:32)
[2017-04-11 13:33] LABS: BASO % 0.6 % (0.0-1.0); HEMATOCRIT 24.1 % (37.0-47.0); HEMOGLOBIN 7.8 g/dl (12.0-16.0); LYMPH # 1.2 10*3/uL (1.3-4.4); LYMPH % 18.7 % (27.0-41.0); MEAN CELL VOLUME 93.8 fl (81.0-99.0); MEAN CORPUSCULAR HGB 30.4 pg (27.0-31.0); MEAN CORPUSCULAR HGB CONC 32.4 g/dl (33.0-37.0); MEAN PLATELET VOLUME 10.5 fl (9.6-12.3); MONO # 0.5 10*3/uL (0.1-1.0); MONO % 8.6 % (3.0-9.0); NEUT # 4.4 10*3/uL (2.3-7.9); NEUT % 71.6 % (47.0-73.0); PLATELET COUNT AUTOMATED 232 10*3/uL (130-400); RED BLOOD COUNT 2.57 10*6/uL (4.10-5.10); RED CELL DISTRI WIDTH 18.6 % (0-14.5); WHITE BLOOD COUNT 6.2 10*3/uL (4.8-10.8)
[2017-04-11] MEDS ORDERED: HUMALOG100 UNIT/2 SQ (13:33)
[2017-04-11] MEDS ORDERED: Lovenox80 MG/0.8 SC (13:33)
[2017-04-11] MEDS ORDERED: TYLENOL325 M2 PO (13:34)
[2017-04-11 13:45] LABS: ACT PARTIAL THROMBO TIME 77.4 SECONDS (20.8-31.5); INTERNATIONAL NORM RATIO 4.3 (2.0-3.5)
[2017-04-11 13:51] LABS: ALBUMIN 2.3 gm/dl (3.1-4.5); CREATININE 1.63 mg/dL (0.55-1.02); POTASSIUM 4.9 mmol/L (3.5-5.1)
[2017-04-11 14:10] LABS: TROPONIN I 0.05 ng/ml (<0.045)
[2017-04-11 16:04] LABS: BILIRUBIN NEGATIVE (NEGATIVE); BLOOD NEGATIVE (NEGATIVE); CLARITY SL CLOUDY (CLEAR); COLOR YELLOW (YELLOW); GLUCOSE NEGATIVE (NEGATIVE); KETONE TRACE (NEGATIVE); LEUKO ESTERASE NEGATIVE (NEGATIVE); NITRITE NEGATIVE (NEGATIVE); PH 5.5 (5.0-9.0); UROBILINOGEN 0.2 E.U./dl (0.2-1.0)
[2017-04-11 16:14] LABS: WBC 0-2 wbc/hpf (0-5); YEAST 1+
[2017-04-12] VITALS: BP 135/50
[2017-04-12 08:00] VITALS: BP 129/48
[2017-04-12 08:12] LABS: BASO # 0.1 10*3/uL (0.0-0.1); BASO % 0.8 % (0.0-1.0); EOS # 0.1 10*3/uL (0.0-0.4); HEMATOCRIT 23.1 % (37.0-47.0); HEMOGLOBIN 7.6 g/dl (12.0-16.0); LYMPH # 1.5 10*3/uL (1.3-4.4); LYMPH % 20.1 % (27.0-41.0); MEAN CELL VOLUME 94.3 fl (81.0-99.0); MEAN CORPUSCULAR HGB CONC 32.9 g/dl (33.0-37.0); MEAN PLATELET VOLUME 10.4 fl (9.6-12.3); MONO # 0.8 10*3/uL (0.1-1.0); MONO % 10.2 % (3.0-9.0); NEUT # 4.9 10*3/uL (2.3-7.9); NEUT % 67.5 % (47.0-73.0); PLATELET COUNT AUTOMATED 228 10*3/uL (130-400); RED BLOOD COUNT 2.45 10*6/uL (4.10-5.10); RED CELL DISTRI WIDTH 18.9 % (0-14.5); WHITE BLOOD COUNT 7.3 10*3/uL (4.8-10.8)
[2017-04-12 08:28] LABS: INTERNATIONAL NORM RATIO 2.5 (2.0-3.5)
[2017-04-12 08:30] LABS: CREATININE 1.54 mg/dL (0.55-1.02); PHOSPHOROUS 2.5 mg/dL (2.5-4.9); POTASSIUM 4.5 mmol/L (3.5-5.1)
[2017-04-12 08:40] LABS: THYROID STIM HORMONE (HS) 12.9 uIU/ml (0.358-4.75)
[2017-04-12 09:41] LABS: VITAMIN D, 25-HYDROXY 44.6 ng/mL (30-100)
[2017-04-12 12:00] VITALS: BP 133/42
[2017-04-12 16:00] VITALS: BP 142/52
[2017-04-12 20:00] VITALS: BP 141/50
[2017-04-13] VITALS (9 sets, daily range): BP systolic 119–137; BP diastolic 40–61
[2017-04-13 07:13] LABS: BASO % 0.6 % (0.0-1.0); EOS # 0.2 10*3/uL (0.0-0.4); EOS % 3.1 % (1.0-4.0); HEMATOCRIT 21.3 % (37.0-47.0); HEMOGLOBIN 6.8 g/dl (12.0-16.0); LYMPH # 1.3 10*3/uL (1.3-4.4); LYMPH % 24.9 % (27.0-41.0); MEAN CELL VOLUME 96.8 fl (81.0-99.0); MEAN CORPUSCULAR HGB 30.9 pg (27.0-31.0); MEAN CORPUSCULAR HGB CONC 31.9 g/dl (33.0-37.0); MEAN PLATELET VOLUME 10.5 fl (9.6-12.3); MONO # 0.6 10*3/uL (0.1-1.0); MONO % 10.6 % (3.0-9.0); NEUT # 3.1 10*3/uL (2.3-7.9); NEUT % 60.4 % (47.0-73.0); PLATELET COUNT AUTOMATED 187 10*3/uL (130-400); RED CELL DISTRI WIDTH 19.1 % (0-14.5); WHITE BLOOD COUNT 5.2 10*3/uL (4.8-10.8)
[2017-04-13 07:32] LABS: INTERNATIONAL NORM RATIO 1.4 (2.0-3.5)
[2017-04-13 07:40] LABS: CREATININE 1.56 mg/dL (0.55-1.02); POTASSIUM 4.4 mmol/L (3.5-5.1)
[2017-04-13 20:24] LABS: IRON 47 ug/dL (50-170); TOTAL IRON BINDING CAPACITY 209 ug/dl (250-450)
[2017-04-14] VITALS (8 sets, daily range): BP systolic 111–141; BP diastolic 36–68
[2017-04-14 03:25] LABS: BASO % 0.5 % (0.0-1.0); EOS # 0.1 10*3/uL (0.0-0.4); EOS % 1.8 % (1.0-4.0); HEMATOCRIT 23.3 % (37.0-47.0); HEMOGLOBIN 7.7 g/dl (12.0-16.0); LYMPH # 1.1 10*3/uL (1.3-4.4); LYMPH % 19.3 % (27.0-41.0); MEAN CORPUSCULAR HGB 30.9 pg (27.0-31.0); MEAN PLATELET VOLUME 10.6 fl (9.6-12.3); MONO # 0.3 10*3/uL (0.1-1.0); MONO % 5.9 % (3.0-9.0); NEUT # 4.1 10*3/uL (2.3-7.9); NEUT % 72.1 % (47.0-73.0); PLATELET COUNT AUTOMATED 179 10*3/uL (130-400); RED BLOOD COUNT 2.49 10*6/uL (4.10-5.10); RED CELL DISTRI WIDTH 18.7 % (0-14.5); WHITE BLOOD COUNT 5.6 10*3/uL (4.8-10.8)
[2017-04-14 03:27] LABS: MEAN CELL VOLUME 93.6 fl (81.0-99.0)
[2017-04-14 03:36] LABS: CREATININE 1.56 mg/dL (0.55-1.02); INTERNATIONAL NORM RATIO 1.3 (2.0-3.5); POTASSIUM 4.7 mmol/L (3.5-5.1)
== END 2017-04-14 23:28 | disposition home or self-care (01) | DRG 314 ==
LOC: ED 12:58 → 5E 16:17 → EDHOLD 16:17 → 5E 16:51
PROVIDERS: Internal Medicine; Internal Medicine Hematology & Oncology; Student in an Organized Health Care Education/Training Program
PROC: 30233N1 Transfusion of Nonautologous Red Blood Cells into Peripheral Vein, Percutaneous Approach (ICD-10-PCS; principal; 2017-04-13)
PROC: 02HV33Z Insertion of Infusion Device into Superior Vena Cava, Percutaneous Approach (ICD-10-PCS; 2017-04-13)
PROC: B548ZZA Ultrasonography of Superior Vena Cava, Guidance (ICD-10-PCS; 2017-04-13)
PROC: 05PYX3Z Removal of Infusion Device from Upper Vein, External Approach (ICD-10-PCS; 2017-04-13)
DX: T82.7XXA Infection and inflammatory reaction due to other cardiac and vascular devices, implants and grafts, initial encounter (principal); I33.0 Acute and subacute infective endocarditis; E43 Unspecified severe protein-calorie malnutrition; E11.22 Type 2 diabetes mellitus with diabetic chronic kidney disease; D68.9 Coagulation defect, unspecified; N18.4 Chronic kidney disease, stage 4 (severe); N17.9 Acute kidney failure, unspecified; R78.81 Bacteremia; E11.65 Type 2 diabetes mellitus with hyperglycemia; I27.20 Pulmonary hypertension, unspecified; I13.0 Hypertensive heart and chronic kidney disease with heart failure and stage 1 through stage 4 chronic kidney disease, or unspecified chronic kidney disease; I50.32 Chronic diastolic (congestive) heart failure; L03.113 Cellulitis of right upper limb; F33.9 Major depressive disorder, recurrent, unspecified; T45.511A Poisoning by anticoagulants, accidental (unintentional), initial encounter; I48.2 Chronic atrial fibrillation; D64.9 Anemia, unspecified; S40.021A Contusion of right upper arm, initial encounter; I08.3 Combined rheumatic disorders of mitral, aortic and tricuspid valves; M19.90 Unspecified osteoarthritis, unspecified site; K57.90 Diverticulosis of intestine, part unspecified, without perforation or abscess without bleeding; F41.1 Generalized anxiety disorder; K21.9 Gastro-esophageal reflux disease without esophagitis; H91.90 Unspecified hearing loss, unspecified ear; Z16.12 Extended spectrum beta lactamase (ESBL) resistance; E78.2 Mixed hyperlipidemia; E80.6 Other disorders of bilirubin metabolism; B96.89 Other specified bacterial agents as the cause of diseases classified elsewhere; Y83.8 Other surgical procedures as the cause of abnormal reaction of the patient, or of later complication, without mention of misadventure at the time of the procedure; E61.1 Iron deficiency; R58 Hemorrhage, not elsewhere classified; S40.022A Contusion of left upper arm, initial encounter; B96.20 Unspecified Escherichia coli [E. coli] as the cause of diseases classified elsewhere; X58.XXXA Exposure to other specified factors, initial encounter; Y93.89 Activity, other specified; Y99.8 Other external cause status; Z79.01 Long term (current) use of anticoagulants; Z90.49 Acquired absence of other specified parts of digestive tract; Z90.89 Acquired absence of other organs; Z90.710 Acquired absence of both cervix and uterus; Z95.0 Presence of cardiac pacemaker; Z98.49 Cataract extraction status, unspecified eye; Z80.9 Family history of malignant neoplasm, unspecified; Z82.3 Family history of stroke; Z88.1 Allergy status to other antibiotic agents; Z88.8 Allergy status to other drugs, medicaments and biological substances; Z86.711 Personal history of pulmonary embolism; Z87.440 Personal history of urinary (tract) infections; Y92.89 Other specified places as the place of occurrence of the external cause; Z79.4 Long term (current) use of insulin; Z86.718 Personal history of other venous thrombosis and embolism; Z87.01 Personal history of pneumonia (recurrent); Z79.899 Other long term (current) drug therapy; Z68.32 Body mass index [BMI] 32.0-32.9, adult

== ENCOUNTER 2017-07-16 14:28 | Inpatient (IN) | payer MEDICARE ==
[~2017-07-16] VITALS: Ht 162.5 cm; Wt 74.2 kg
--- NOTE | ~2017-07-16 | CON ---
[place], [place] REPORT OF CONSULTATION NAME: CELENA GOLDSTEIN I UNIT #: [id number] ROOM: 509 DO[facility] [birth year] DOS: 07/17/2017 CARDIOLOGY CONSULTATION CONSULTATION REQUESTED BY: Dr. Leo to see the patient for cardiology consult. The consult was noted for Dr. Cordova. Dr. Leo is covering for Dr. Cordova and Dr. Cordova should be back next week, so Dr. Cordova see the patient as an outpatient if the patient get discharged subsequently. HISTORY OF PRESENT ILLNESS: The patient is an 82-year-old female came to Dr. Limon's office through the Emergency Room. The patient apparently fell down ____ on the left elbow and the right [place]. The patient apparently has bad knees and found to be in congestive heart failure, cardiomegaly and he adjusted the medications optimally. PAST MEDICAL HISTORY: The patient has a previous history of aortic valve endocarditis, congestive heart failure, chronic atrial fibrillation, chronic kidney disease and echocardiogram is pending. PAST SURGICAL HISTORY: The patient's surgical history including appendectomy, permanent pacemaker, cholecystectomy and hysterectomy. FAMILY HISTORY: Of cerebral infarction. ALLERGIES: THE PATIENT IS ALLERGIC TO LISINOPRIL, LOVASTATIN, NIACIN, SEPTRA. MEDICATIONS: The patient is on amlodipine, levodopa and carbidopa, diltiazem. The patient is currently on Lovenox. The patient is diabetic, on insulin. The patient also on Crestor 5 mg daily. The patient is on warfarin therapy for chronic atrial fibrillation and recurrent congestive heart failure. PHYSICAL EXAMINATION: VITAL SIGNS: Blood pressure 151/61, afebrile, heart rate is 60. SKIN: Warm, not diaphoretic. LUNGS: Bibasilar rales. HEART: S1, S2 irregular. Heart rate is optimal. ABDOMEN: Soft. EXTREMITIES: Color is good, not diaphoretic. No cyanosis. LABORATORY DATA: BUN is 50, creatinine is 1.86 and hemoglobin is 11. IMPRESSION: Congestive heart failure, chronic atrial fibrillation. PLAN: Optimize the medical therapy, diastolic dysfunction and congestive heart failure is considered. The patient already on optimal medical therapy and the patient will be followed by Dr. Cordova for cardiovascular status. Dr. Leo is covering at this time and Dr. Cordova is out of town, was covering ____ Dr. Leo for this visit. [place], [place] REPORT OF CONSULTATION NAME: CELENA GOLDSTEIN I UNIT #: [id number] ROOM: 509 DOCTOR: W[facility] HARR[facility] BIRTHDATE: [birth year] Thank you very much for asking me to see the patient. I will follow the patient. SKINNY DELAROSA MD CM:CONSTR:REPORT OF CONSULTATION 1737 07/18/17 0632 interface ARON LIMON MD
--- NOTE | ~2017-07-16 | PR ---
[place], [place] PROGRESS NOTE NAME: CELENA GOLDSTEIN I UNIT #: [id number] ROOM: 509 DOCTOR: NADINE MANUEL MD BIRTHDATE: [birth year] DOS: 07/19/2017 SUBJECTIVE: The patient has been admitted to hospital with injuries to her leg. She is hard of hearing and cannot tell what is wrong with her and she has laceration of the lower limb, which had dressings on it and with some erythema and edema of the legs okay and patient denies any chest pain, no difficulty in breathing, no nausea, no vomiting. Her comprehensive metabolic profile showed chronic renal failure with BUN of 40 and creatinine 1.88. Blood sugar 150. GFR 30. CBC showed hypochromic anemia with hemoglobin 9.9, hematocrit 32.6. Ultrasound of the lower extremity does not show any deep vein thrombosis. X-ray of the lumbar spine showed degenerative arthritis of the back and her urine examination showed 1+ leukocyte esterase and protime shows 20.9, INR 1.9. OBJECTIVE: VITAL SIGNS: Blood pressure is 124/48, pulse 60, respirations 17, temperature 98.5. CHEST: Clear. HEART: Regular. ABDOMEN: Soft. NADINE MANUEL MD CM:PNTRANS 0801 1013 NADINE MANUEL MD 07/19/17 2322 interface
--- NOTE | ~2017-07-16 | PR ---
[place], [place] PROGRESS NOTE NAME: CELENA GOLDSTEIN I UNIT #: [id number] ROOM: 509 DOCTOR: FÉLIX FELIZ MD BIRTHDATE: [birth year] DOS: 07/18/2017 SUBJECTIVE: The patient was seen by Dr. Rizzo, who was covering for me. The patient is seen and evaluated today. Awake, alert, and responsive. No nausea, no vomiting, no chest discomfort, no shortness of breath. OBJECTIVE: VITAL SIGNS: Hemodynamically stable, pressure is 100/50. HEENT: Unremarkable. NECK: Supple. No JVD. LUNGS: Clear. HEART: Sounds are regular. ABDOMEN: Soft, nontender. EXTREMITIES: Positive erythema and edema. No clubbing, no cyanosis. NEUROLOGIC: Stable. No focal deficits. LABORATORY DATA: INR is 1.8. IMPRESSION: The patient admitted with a contusion of the right lower extremity, bilateral lower extremity edema, hyperglycemia, and bradycardia. The patient appears to be improving. PLAN: Continue the present medications. The patient was seen by Dr. Rizzo yesterday for me and we will follow up. FÉLIX FELIZ MD CM:JEROME [phone] FÉLIX FELIZ MD 07/18/174 interface
--- NOTE | ~2017-07-16 | PR ---
[place], [place] PROGRESS NOTE NAME: CELENA GOLDSTEIN I UNIT #: [id number] ROOM: 509 DOCTOR: NADINE MANUEL MD BIRTHDATE: [birth year] DOS: SUBJECTIVE: The patient has been admitted to hospital with injuries of her leg and she is hard of hearing. She cannot tell exactly what is wrong with her, had difficulty in communication of the lower limbs are getting better. She denies any chest pain, no difficulty in breathing, no nausea, no vomiting and does not seem in any distress. At present, she is sitting in chair comfortably. Her urine culture and sensitivity did not grow any bacteria. Her protime today is 19.4 which is fairly good. OBJECTIVE: VITAL SIGNS: Her blood pressure is 135/50, pulse 60, respirations 20, temperature 97.7. CHEST: Clear. HEART: Regular. ABDOMEN: Soft. NADINE MANUEL MD CM:PNTRANS [phone] NADINE MANUEL MD 07/20/177 interface
--- NOTE | ~2017-07-16 | EKG ---
[place], [place] ELECTROCARDIOGRAM REPORT NAME: CELENA GOLDSTEIN I UNIT #: [id number] ROOM: 509 DOCTOR: ARON LIMON MD BIRTHDATE: [birth year] DOS: 07/16/2017 TIME: 15:15:45 IMPRESSION: Rate and rhythm, ventricularly paced rhythm at 60 beats per minute, cannot be interpreted further. ARON LIMON MD CM:EKGRPT:ELECTROCARDIOGRAM REPORT 1029 1046 ARON LIMON MD
[~2017-07-16 14:28] MED LIST changes: +HUMALOG100 UNIT/2 SQ; +LASIX20 MG PO; +Lovenox80 MG/0.8 SC; +MAGNESIUM OXID400 MG PO; +MEROPENEM-500 MG/50 IV; +NORVASC5 MG PO; +TYLENOL325 M2 PO; +VICODIN 5-3001 EACH PO; +WARFARIN SODIUM5 MG PO
[2017-07-16 14:29] VITALS: BP 151/91
[2017-07-16 15:18] LABS: BASO # 0.1 10*3/uL (0.0-0.1); BASO % 1.1 % (0.0-1.0); EOS # 0.3 10*3/uL (0.0-0.4); EOS % 4.6 % (1.0-4.0); HEMATOCRIT 35.9 % (37.0-47.0); LYMPH # 1.3 10*3/uL (1.3-4.4); LYMPH % 23.8 % (27.0-41.0); MEAN CELL VOLUME 99.7 fl (81.0-99.0); MEAN CORPUSCULAR HGB 30.6 pg (27.0-31.0); MEAN CORPUSCULAR HGB CONC 30.6 g/dl (33.0-37.0); MEAN PLATELET VOLUME 10.3 fl (9.6-12.3); MONO # 0.4 10*3/uL (0.1-1.0); MONO % 6.9 % (3.0-9.0); NEUT # 3.6 10*3/uL (2.3-7.9); NEUT % 63.4 % (47.0-73.0); PLATELET COUNT AUTOMATED 211 10*3/uL (130-400); RED CELL DISTRI WIDTH 17.1 % (0-14.5); WHITE BLOOD COUNT 5.6 10*3/uL (4.8-10.8)
[2017-07-16 15:26] LABS: ACT PARTIAL THROMBO TIME 28.2 SECONDS (20.8-31.5); INTERNATIONAL NORM RATIO 1.6 (2.0-3.5)
[2017-07-16 15:41] LABS: ALBUMIN 2.8 gm/dl (3.1-4.5); CREATININE 1.86 mg/dL (0.55-1.02); TOTAL PROTEIN 7.1 gm/dL (6.4-8.2); TROPONIN I 0.016 ng/ml (<0.045)
[2017-07-16 16:00] VITALS: BP 177/61
[2017-07-16] MEDS ORDERED: NEURONTIN600 MG PO (17:01)
[2017-07-16] MEDS ORDERED: FUROSEMIDE40 MG PO (17:04)
[2017-07-16] MEDS ORDERED: MACRODANTIN100 M1 PO (17:06)
[2017-07-16] MEDS ORDERED: VESICARE5 MG PO (17:07)
[2017-07-16] MEDS ORDERED: ROSUVASTATIN CAL5 MG PO (17:08)
[2017-07-16] MEDS ORDERED: TOPROL XL50 M1 PO (17:11)
[2017-07-16] MEDS ORDERED: OMEPRAZOLE40 MG PO (17:12)
[2017-07-16] MEDS ORDERED: KLOR-CON M2020 ME1 PO (17:15)
[2017-07-16 17:45] VITALS: BP 169/93
[2017-07-16 20:00] VITALS: BP 134/86
[2017-07-17] VITALS: BP 130/50
[2017-07-17 06:29] LABS: BASO % 0.5 % (0.0-1.0); EOS # 0.3 10*3/uL (0.0-0.4); HEMATOCRIT 34.1 % (37.0-47.0); HEMOGLOBIN 10.4 g/dl (12.0-16.0); LYMPH # 0.9 10*3/uL (1.3-4.4); LYMPH % 14.2 % (27.0-41.0); MEAN CELL VOLUME 100.6 fl (81.0-99.0); MEAN CORPUSCULAR HGB 30.7 pg (27.0-31.0); MEAN CORPUSCULAR HGB CONC 30.5 g/dl (33.0-37.0); MEAN PLATELET VOLUME 10.5 fl (9.6-12.3); MONO # 0.4 10*3/uL (0.1-1.0); MONO % 5.8 % (3.0-9.0); NEUT % 75.2 % (47.0-73.0); PLATELET COUNT AUTOMATED 187 10*3/uL (130-400); RED BLOOD COUNT 3.39 10*6/uL (4.10-5.10); RED CELL DISTRI WIDTH 17.2 % (0-14.5); WHITE BLOOD COUNT 6.6 10*3/uL (4.8-10.8)
[2017-07-17 06:46] LABS: ALBUMIN 2.5 gm/dl (3.1-4.5); CREATININE 1.71 mg/dL (0.55-1.02); PHOSPHOROUS 3.4 mg/dL (2.5-4.9); POTASSIUM 3.9 mmol/L (3.5-5.1); TOTAL PROTEIN 6.3 gm/dL (6.4-8.2)
[2017-07-17 06:52] LABS: FREE T4 1.29 ng/dl (0.76-1.46)
[2017-07-17 06:53] LABS: THYROID STIM HORMONE (HS) 4.23 uIU/ml (0.358-4.75)
[2017-07-17 07:10] LABS: ACT PARTIAL THROMBO TIME 28.1 SECONDS (20.8-31.5); INTERNATIONAL NORM RATIO 1.5 (2.0-3.5)
[2017-07-17 07:52] LABS: VITAMIN D, 25-HYDROXY 32.8 ng/mL (30-100)
[2017-07-17 08:00] VITALS: BP 145/46
[2017-07-17 12:00] VITALS: BP 151/51
[2017-07-17 16:00] VITALS: BP 154/49
[2017-07-17 20:00] VITALS: BP 113/57; BP 119/54
[2017-07-18] VITALS: BP 120/50
[2017-07-18 06:36] LABS: INTERNATIONAL NORM RATIO 1.8 (2.0-3.5)
[2017-07-18 08:00] VITALS: BP 100/50
[2017-07-18 10:16] LABS: BASO % 0.8 % (0.0-1.0); EOS # 0.3 10*3/uL (0.0-0.4); EOS % 5.5 % (1.0-4.0); HEMATOCRIT 32.6 % (37.0-47.0); HEMOGLOBIN 9.9 g/dl (12.0-16.0); LYMPH # 1.5 10*3/uL (1.3-4.4); LYMPH % 28.9 % (27.0-41.0); MEAN CELL VOLUME 101.6 fl (81.0-99.0); MEAN CORPUSCULAR HGB 30.8 pg (27.0-31.0); MEAN CORPUSCULAR HGB CONC 30.4 g/dl (33.0-37.0); MEAN PLATELET VOLUME 10.2 fl (9.6-12.3); MONO # 0.4 10*3/uL (0.1-1.0); MONO % 8.7 % (3.0-9.0); NEUT # 2.8 10*3/uL (2.3-7.9); NEUT % 55.9 % (47.0-73.0); PLATELET COUNT AUTOMATED 196 10*3/uL (130-400); RED BLOOD COUNT 3.21 10*6/uL (4.10-5.10); WHITE BLOOD COUNT 5.1 10*3/uL (4.8-10.8)
[2017-07-18 10:30] LABS: ALBUMIN 2.4 gm/dl (3.1-4.5); CREATININE 1.88 mg/dL (0.55-1.02); POTASSIUM 4.4 mmol/L (3.5-5.1); TOTAL PROTEIN 6.3 gm/dL (6.4-8.2)
[2017-07-18 12:00] VITALS: BP 116/80
[2017-07-18 15:54] LABS: BILIRUBIN NEGATIVE (NEGATIVE); BLOOD NEGATIVE (NEGATIVE); CLARITY CLEAR (CLEAR); COLOR YELLOW (YELLOW); GLUCOSE NEGATIVE (NEGATIVE); KETONE NEGATIVE (NEGATIVE); LEUKO ESTERASE 1+ (NEGATIVE); NITRITE NEGATIVE (NEGATIVE); PH 5.5 (5.0-9.0); UROBILINOGEN 0.2 E.U./dl (0.2-1.0)
[2017-07-18 16:00] VITALS: BP 132/50
[2017-07-18 16:05] LABS: BACTERIA TRACE; WBC TNTC wbc/hpf (0-5)
[2017-07-18 20:00] VITALS: BP 150/49
[2017-07-19] VITALS: BP 124/48
[2017-07-19 06:29] LABS: INTERNATIONAL NORM RATIO 1.9 (2.0-3.5)
[2017-07-19 08:00] VITALS: BP 114/58
[2017-07-19 12:00] VITALS: BP 133/36
[2017-07-19 16:00] VITALS: BP 164/45
[2017-07-19 20:00] VITALS: BP 102/42; BP 118/48
[2017-07-20] VITALS: BP 140/52
[2017-07-20 06:57] LABS: INTERNATIONAL NORM RATIO 1.8 (2.0-3.5)
[2017-07-20 08:00] VITALS: BP 147/63
[2017-07-20 12:00] VITALS: BP 131/75
[2017-07-20 16:00] VITALS: BP 135/50
[2017-07-20 20:00] VITALS: BP 133/44
[2017-07-21] VITALS: BP 107/45
[2017-07-21 06:46] LABS: BASO % 0.3 % (0.0-1.0); EOS # 0.3 10*3/uL (0.0-0.4); EOS % 4.8 % (1.0-4.0); HEMATOCRIT 30.9 % (37.0-47.0); HEMOGLOBIN 9.8 g/dl (12.0-16.0); LYMPH # 1.3 10*3/uL (1.3-4.4); LYMPH % 21.6 % (27.0-41.0); MEAN CELL VOLUME 97.2 fl (81.0-99.0); MEAN CORPUSCULAR HGB 30.8 pg (27.0-31.0); MEAN CORPUSCULAR HGB CONC 31.7 g/dl (33.0-37.0); MEAN PLATELET VOLUME 10.6 fl (9.6-12.3); MONO # 0.4 10*3/uL (0.1-1.0); NEUT # 3.8 10*3/uL (2.3-7.9); NEUT % 66.1 % (47.0-73.0); PLATELET COUNT AUTOMATED 198 10*3/uL (130-400); RED BLOOD COUNT 3.18 10*6/uL (4.10-5.10); RED CELL DISTRI WIDTH 16.6 % (0-14.5); WHITE BLOOD COUNT 5.8 10*3/uL (4.8-10.8)
[2017-07-21 06:55] LABS: CREATININE 1.87 mg/dL (0.55-1.02)
[2017-07-21 07:15] LABS: INTERNATIONAL NORM RATIO 1.6 (2.0-3.5)
[2017-07-21 08:00] VITALS: BP 136/57
[2017-07-21 12:00] VITALS: BP 146/39
[2017-07-21] MEDS ORDERED: LAC-HYDRIN FIV226 GM T (13:47)
[2017-07-21] MEDS ORDERED: CEPHALEXIN500 M1 PO (13:47)
[2017-07-21] MEDS ORDERED: TOPICORT60 G2 T (13:47)
[2017-07-21 16:00] VITALS: BP 142/43
[2017-07-21 20:00] VITALS: BP 138/73
[2017-07-22] VITALS: BP 123/51
[2017-07-22 06:27] LABS: EOS # 0.2 10*3/uL (0.0-0.4); EOS % 5.7 % (1.0-4.0); HEMATOCRIT 31.1 % (37.0-47.0); HEMOGLOBIN 9.7 g/dl (12.0-16.0); LYMPH # 0.7 10*3/uL (1.3-4.4); LYMPH % 18.2 % (27.0-41.0); MEAN CELL VOLUME 97.8 fl (81.0-99.0); MEAN CORPUSCULAR HGB 30.5 pg (27.0-31.0); MEAN CORPUSCULAR HGB CONC 31.2 g/dl (33.0-37.0); MEAN PLATELET VOLUME 10.1 fl (9.6-12.3); MONO # 0.3 10*3/uL (0.1-1.0); MONO % 8.6 % (3.0-9.0); NEUT # 2.5 10*3/uL (2.3-7.9); PLATELET COUNT AUTOMATED 186 10*3/uL (130-400); RED BLOOD COUNT 3.18 10*6/uL (4.10-5.10); RED CELL DISTRI WIDTH 16.5 % (0-14.5); WHITE BLOOD COUNT 3.9 10*3/uL (4.8-10.8)
[2017-07-22 06:47] LABS: ALBUMIN 2.3 gm/dl (3.1-4.5); CREATININE 1.95 mg/dL (0.55-1.02); POTASSIUM 3.8 mmol/L (3.5-5.1); TOTAL PROTEIN 6.3 gm/dL (6.4-8.2)
[2017-07-22 06:57] LABS: INTERNATIONAL NORM RATIO 1.6 (2.0-3.5)
[2017-07-22 08:00] VITALS: BP 152/42
== END 2017-07-22 10:06 | disposition home health service (06) | DRG 603 ==
LOC: ED 14:28 → EDHOLD 16:14 → 5E 16:14
PROVIDERS: Emergency Medicine; Internal Medicine
DX: L03.115 Cellulitis of right lower limb (principal); E44.0 Moderate protein-calorie malnutrition; D68.59 Other primary thrombophilia; E11.65 Type 2 diabetes mellitus with hyperglycemia; E11.22 Type 2 diabetes mellitus with diabetic chronic kidney disease; N18.4 Chronic kidney disease, stage 4 (severe); N17.9 Acute kidney failure, unspecified; I50.32 Chronic diastolic (congestive) heart failure; I13.0 Hypertensive heart and chronic kidney disease with heart failure and stage 1 through stage 4 chronic kidney disease, or unspecified chronic kidney disease; I27.20 Pulmonary hypertension, unspecified; I48.2 Chronic atrial fibrillation; D53.9 Nutritional anemia, unspecified; S80.11XA Contusion of right lower leg, initial encounter; S40.021A Contusion of right upper arm, initial encounter; D72.810 Lymphocytopenia; F32.9 Major depressive disorder, single episode, unspecified; S51.012A Laceration without foreign body of left elbow, initial encounter; H91.93 Unspecified hearing loss, bilateral; K57.90 Diverticulosis of intestine, part unspecified, without perforation or abscess without bleeding; K21.9 Gastro-esophageal reflux disease without esophagitis; M19.90 Unspecified osteoarthritis, unspecified site; Z60.2 Problems related to living alone; F41.1 Generalized anxiety disorder; W06.XXXA Fall from bed, initial encounter; Z86.718 Personal history of other venous thrombosis and embolism; Z95.0 Presence of cardiac pacemaker; Z88.8 Allergy status to other drugs, medicaments and biological substances; Z88.2 Allergy status to sulfonamides; Z79.01 Long term (current) use of anticoagulants; Z79.899 Other long term (current) drug therapy; Z79.4 Long term (current) use of insulin; Z90.49 Acquired absence of other specified parts of digestive tract; Z90.710 Acquired absence of both cervix and uterus; Z98.42 Cataract extraction status, left eye; Z98.41 Cataract extraction status, right eye; Z80.8 Family history of malignant neoplasm of other organs or systems; Z82.3 Family history of stroke; Z91.81 History of falling; Y93.89 Activity, other specified; Y92.092 Bedroom in other non-institutional residence as the place of occurrence of the external cause; Y99.8 Other external cause status; Z68.20 Body mass index [BMI] 20.0-20.9, adult

== ENCOUNTER 2017-08-06 15:01 | Inpatient (IN) | payer MEDICARE, MEDICAID ==
[~2017-08-06] VITALS: Ht 162.5 cm; Wt 67.8 kg
--- NOTE | ~2017-08-06 | PR ---
[place], [place] PROGRESS NOTE NAME: [facility]STEIN [id number] #: [id number] ROOM: 525 DOCTOR: MAMIE HOGAN DPM BIRTHDATE: [birth year] DOS: 08/09/2017 SUBJECTIVE: The patient was seen for followup of ulcerations of the right lower leg and lateral left ankle. The patient is still experiencing a lot of pain to the ulceration to the left ankle. OBJECTIVE: Pedal pulse is diminished to bilateral lower extremity, ulceration to lateral left ankle with ecchymotic appearance. No signs of infection. Radiographs were unremarkable. Ulcerations to the anterior lower right leg stable, full thickness with no signs of infection. There is pain of lateral malleolus noted. ASSESSMENT: Ulceration to lateral left ankle, ulcerations to anterior lower right leg, peripheral vascular disease. PLAN: Evaluation and management. Ordered PRAFO style heel protectors bilateral. Continue local wound care. We will also consult Dr. Rizzo for vascular consultation due to continued pain of the ulcerations, suspicious for possible underlying arterial cause of the ulceration due to the pain. If arterial intervention is performed, the patient may need a biopsy of the skin of the lateral left ankle at some point, but I would like to rule out arterial involvement at this time. MAMIE HOGAN DPM CM:JEROME 1144 [id number] MAMIE HOGAN DPM 08/09/17 1248 interface
--- NOTE | ~2017-08-06 | CON ---
[place], [place] REPORT OF CONSULTATION NAME: CELENA GOLDSTEIN I [facility] [id number] UNIT #: [id number] ROOM: 525 DOCTOR: MAMIE HOGAN DPM BIRTHDATE: [birth year] DOS: 08/07/2017 SUBJECTIVE: The patient presents as an 82-year-old female with ulcerations on the lateral left ankle and the anterior lower right leg. PAST MEDICAL HISTORY: Aortic valve endocarditis, arthritis, asthmatic bronchitis, chronic AFib, chronic kidney disease stage 3, depression, diverticulitis, essential hypertension, general anxiety disorder, GERD, hard of hearing, history of blood clots, hypercoagulable state, infection of pacemaker lead wire, infective endocarditis, macrocytic anemia, mitral valve regurgitation, overweight, pulmonary hypertension, stasis dermatitis of both legs, systolic CHF, tricuspid regurg, type 2 diabetes with hyperglycemia. SURGICAL HISTORY: Permanent cardiac pacemaker placement, appendectomy, cataract extraction, cholecystectomy, hysterectomy. SOCIAL HISTORY: Denies alcohol, illicit drug use or tobacco use. FAMILY HISTORY: Father . Mother , relation nonspecified for cerebral infarction, malignant neoplasm. LOWER EXTREMITY EXAMINATION: Pedal pulses diminished both lower extremities, decreased hair growth, decreased skin temperature. There is an ulceration to the lateral left ankle, ecchymotic in nature. No signs of abscess, no signs of purulent drainage or foul odor. Is full thickness in nature but again, no undermining, necrosis or sinus tract noted. Radiographs of the left ankle unremarkable for osteomyelitis. Generalized osteopenia noted. There are two ulcerations to the anterior lower right leg, which are full thickness with no signs of infection noted. No signs of deep sinus tract or abscess. ASSESSMENT: Diabetic ulceration, lateral left ankle; ulcerations, anterior lower right leg; peripheral vascular disease. PLAN: Evaluation and management. The patient's arterial testing was consistent with Doppler waveform analysis suggesting mild inflow disease, bilateral. No flow detected to the posterior tibial arteries on either side, but the runoff vessels appear patent. The patient is stable at this time. We can continue local wound care. I will reassess the patient in 2 days, possibly switch to a different type of dressing at this time, but due to the patient's physical state and age, I will continue conservative treatment at this time. No debridement was necessary at this visit. Possible Vascular consultation if no improvement. [place], [place] REPORT OF CONSULTATION NAME: CELENA GOLDSTEIN I UNIT #: [id number] ROOM: [facility] DOCTOR: MAMIE HOGAN DPM BIRTHDATE: [birth year] MAMIE HOGAN DPM CM:CONSTR:REPORT OF CONSULTATION 1157 08/07/17 1207 interface
--- NOTE | ~2017-08-06 | CON ---
[place], [place] REPORT OF CONSULTATION NAME: CELENA GOLDSTEIN I UNIT #: [id number] ROOM: 525 [facility] [birth year] DOS: 08/11/2017 HISTORY OF PRESENT ILLNESS: The patient is on Coumadin therapy and it has been hold, and given the FFR 2 units to bring the INR down for the procedure with the peripheral arteriogram and possible intervention. The patient has wounds on both lower extremities, left more than the right with a severe intermittent claudication and with minimal activity and Dr. ____ taking care of the wounds and a concern about this severe peripheral artery disease and peripheral angiogram and possible revascularization with abdominal aortogram and aortobifemoral angiogram with distal runoff. The patient has diabetes also, not fairly controlled. Peripheral artery disease, severe and with the wounds indicating [place] classification 5. History of venous thrombosis in the past with embolization. The patient is hard of hearing, but the daughter was there. PHYSICAL EXAMINATION: VITAL SIGNS: Stable. EXTREMITIES: Diminished pulses in both lower extremities with the wounds on both sides, left more than right. LUNGS: Diminished sounds at the bases and no wheezing. HEART: S1, S2 irregular and heart rate is optimal. NECK: Supple. ABDOMEN: Soft. There are no cardiac decompensation at this time. INR is 2.4 and being corrected for the angiogram and intervention. IMPRESSION: Severe peripheral artery disease along with wounds and ischemic limbs and evaluating for ____ possible revascularization. Options, procedure, complications, morbidity, mortality, and risk is explained. Daughter also quite aware along with the mother and she explained to the mother and informed consent obtained for the further management of this patient for the severe peripheral arterial disease. We will continue the current management. SKINNY DELAROSA MD CM:CONSTR:REPORT OF CONSULTATION 0 08/11/1739 interface ARON LIMON MD
[~2017-08-06 15:01] MED LIST changes: +CEPHALEXIN500 M1 PO; +FUROSEMIDE40 MG PO; +KLOR-CON M2020 ME1 PO; +LAC-HYDRIN FIV226 GM T; +MACRODANTIN100 M1 PO; +NEURONTIN600 MG PO; +ROSUVASTATIN CAL5 MG PO; +TOPICORT60 G2 T
[2017-08-06 15:28] VITALS: BP 170/56
[2017-08-06 16:00] VITALS: BP 155/76
[2017-08-06 16:10] LABS: BASO % 0.3 % (0.0-1.0); EOS % 0.1 % (1.0-4.0); HEMATOCRIT 39.8 % (37.0-47.0); HEMOGLOBIN 12.5 g/dl (12.0-16.0); LYMPH # 0.9 10*3/uL (1.3-4.4); LYMPH % 8.5 % (27.0-41.0); MEAN CELL VOLUME 95.7 fl (81.0-99.0); MEAN CORPUSCULAR HGB CONC 31.4 g/dl (33.0-37.0); MEAN PLATELET VOLUME 9.9 fl (9.6-12.3); MONO # 0.5 10*3/uL (0.1-1.0); MONO % 4.5 % (3.0-9.0); NEUT # 9.2 10*3/uL (2.3-7.9); NEUT % 86.1 % (47.0-73.0); PLATELET COUNT AUTOMATED 235 10*3/uL (130-400); RED BLOOD COUNT 4.16 10*6/uL (4.10-5.10); RED CELL DISTRI WIDTH 15.5 % (0-14.5); WHITE BLOOD COUNT 10.7 10*3/uL (4.8-10.8)
[2017-08-06 16:19] LABS: ACT PARTIAL THROMBO TIME 26.3 SECONDS (20.8-31.5); INTERNATIONAL NORM RATIO 1.6 (2.0-3.5)
[2017-08-06 16:26] LABS: ALBUMIN 2.9 gm/dl (3.1-4.5); ALKALINE PHOSPHATASE 117 U/L (45-117); BUN 35 mg/dl (7-24); CHLORIDE 97 mmol/L (98-107); CREATININE 1.71 mg/dL (0.55-1.02); POTASSIUM 3.9 mmol/L (3.5-5.1); SGOT/AST 22 IU/L (3-35); SGPT/ALT 21 U/L (12-78); SODIUM 135 mmol/L (136-145); TOTAL PROTEIN 7.4 gm/dL (6.4-8.2)
[2017-08-06 16:27] LABS: TROPONIN I < 0.015 ng/ml (<0.045)
[2017-08-06] MEDS ORDERED: LEVAQUIN750 M1 PO (16:31)
[2017-08-06] MEDS ORDERED: RANITIDINE HCL150 M1 PO (16:31)
[2017-08-06] MEDS ORDERED: GUAIFENESIN600 MG PO (16:31)
[2017-08-06] MEDS ORDERED: MEDROL DOSEPAK4 MG PO (16:32)
[2017-08-06 20:00] VITALS: BP 155/76
[2017-08-07 00:14] VITALS: BP 122/58
[2017-08-07 06:20] LABS: HEMATOCRIT 35.7 % (37.0-47.0); HEMOGLOBIN 11.2 g/dl (12.0-16.0); MEAN CELL VOLUME 94.4 fl (81.0-99.0); MEAN CORPUSCULAR HGB 29.6 pg (27.0-31.0); MEAN CORPUSCULAR HGB CONC 31.4 g/dl (33.0-37.0); MEAN PLATELET VOLUME 10.5 fl (9.6-12.3); PLATELET COUNT AUTOMATED 216 10*3/uL (130-400); RED BLOOD COUNT 3.78 10*6/uL (4.10-5.10); RED CELL DISTRI WIDTH 15.4 % (0-14.5); WHITE BLOOD COUNT 6.2 10*3/uL (4.8-10.8)
[2017-08-07 06:38] LABS: ALBUMIN 2.3 gm/dl (3.1-4.5); CREATININE 1.87 mg/dL (0.55-1.02); PHOSPHOROUS 3.6 mg/dL (2.5-4.9); POTASSIUM 3.9 mmol/L (3.5-5.1); TOTAL PROTEIN 6.3 gm/dL (6.4-8.2)
[2017-08-07 06:43] LABS: ACT PARTIAL THROMBO TIME 26.7 SECONDS (20.8-31.5); INTERNATIONAL NORM RATIO 1.6 (2.0-3.5)
[2017-08-07 06:44] LABS: THYROID STIM HORMONE (HS) 1.69 uIU/ml (0.358-4.75)
[2017-08-07 07:51] LABS: BASOPHILS 1 % (0-1); PLATELET SUFFICIENCY NORMAL (NORMAL); TOTAL CELLS COUNTED 100 #CELLS
[2017-08-07 08:00] VITALS: BP 125/43
[2017-08-07 12:00] VITALS: BP 135/47
[2017-08-07 16:00] VITALS: BP 120/44
[2017-08-07 20:00] VITALS: BP 110/77
[2017-08-08] VITALS: BP 129/35
[2017-08-08 06:16] LABS: HEMATOCRIT 33.8 % (37.0-47.0); HEMOGLOBIN 10.8 g/dl (12.0-16.0); MEAN CELL VOLUME 93.9 fl (81.0-99.0); MEAN PLATELET VOLUME 10.4 fl (9.6-12.3); PLATELET COUNT AUTOMATED 206 10*3/uL (130-400); RED CELL DISTRI WIDTH 15.6 % (0-14.5); WHITE BLOOD COUNT 9.5 10*3/uL (4.8-10.8)
[2017-08-08 06:27] LABS: INTERNATIONAL NORM RATIO 2.1 (2.0-3.5)
[2017-08-08 06:39] LABS: ALBUMIN 2.4 gm/dl (3.1-4.5); CREATININE 2.15 mg/dL (0.55-1.02); PHOSPHOROUS 4.1 mg/dL (2.5-4.9); POTASSIUM 4.5 mmol/L (3.5-5.1); TOTAL PROTEIN 6.4 gm/dL (6.4-8.2)
[2017-08-08 07:50] LABS: PLATELET SUFFICIENCY NORMAL (NORMAL); TOTAL CELLS COUNTED 100 #CELLS
[2017-08-08 08:00] VITALS: BP 136/43
[2017-08-08 12:00] VITALS: BP 146/36
[2017-08-08 16:00] VITALS: BP 145/58
[2017-08-08 20:00] VITALS: BP 154/43
[2017-08-09] VITALS: BP 148/55
[2017-08-09 06:12] LABS: HEMOGLOBIN 10.7 g/dl (12.0-16.0); MEAN CORPUSCULAR HGB 29.9 pg (27.0-31.0); MEAN CORPUSCULAR HGB CONC 31.5 g/dl (33.0-37.0); MEAN PLATELET VOLUME 10.7 fl (9.6-12.3); PLATELET COUNT AUTOMATED 199 10*3/uL (130-400); RED BLOOD COUNT 3.58 10*6/uL (4.10-5.10); RED CELL DISTRI WIDTH 15.5 % (0-14.5); WHITE BLOOD COUNT 9.2 10*3/uL (4.8-10.8)
[2017-08-09 06:22] LABS: ALBUMIN 2.3 gm/dl (3.1-4.5); CREATININE 1.91 mg/dL (0.55-1.02); POTASSIUM 4.6 mmol/L (3.5-5.1); TOTAL PROTEIN 6.1 gm/dL (6.4-8.2)
[2017-08-09 06:29] LABS: INTERNATIONAL NORM RATIO 2.8 (2.0-3.5)
[2017-08-09 08:00] VITALS: BP 139/55
[2017-08-09 08:17] LABS: TOTAL CELLS COUNTED 100 #CELLS
[2017-08-09 08:21] LABS: PLATELET SUFFICIENCY NORMAL (NORMAL)
[2017-08-09 12:00] VITALS: BP 145/53
[2017-08-09 15:39] LABS: BILIRUBIN NEGATIVE (NEGATIVE); BLOOD NEGATIVE (NEGATIVE); CLARITY CLEAR (CLEAR); COLOR YELLOW (YELLOW); GLUCOSE NEGATIVE (NEGATIVE); KETONE NEGATIVE (NEGATIVE); LEUKO ESTERASE NEGATIVE (NEGATIVE); NITRITE NEGATIVE (NEGATIVE); PH 5.5 (5.0-9.0); SPECIFIC GRAVITY 1.015 (1.005-1.030); UROBILINOGEN 0.2 E.U./dl (0.2-1.0)
[2017-08-09 16:00] VITALS: BP 142/47
[2017-08-09 16:01] LABS: BACTERIA TRACE
[2017-08-09 16:02] LABS: EPITHELIAL CELLS 16-20
[2017-08-09 20:00] VITALS: BP 160/57
[2017-08-10] VITALS: BP 151/70
[2017-08-10 07:36] LABS: INTERNATIONAL NORM RATIO 2.4 (2.0-3.5)
[2017-08-10 08:00] VITALS: BP 153/48
[2017-08-10 12:00] VITALS: BP 146/48
[2017-08-10 16:00] VITALS: BP 153/43
[2017-08-10 18:35] VITALS: BP 148/52
[2017-08-10 20:00] VITALS: BP 158/76
[2017-08-11] VITALS: BP 151/53
[2017-08-11 05:43] LABS: INTERNATIONAL NORM RATIO 1.6 (2.0-3.5)
[2017-08-11 05:57] LABS: BASO % 0.1 % (0.0-1.0); HEMATOCRIT 37.7 % (37.0-47.0); HEMOGLOBIN 11.7 g/dl (12.0-16.0); LYMPH # 0.6 10*3/uL (1.3-4.4); LYMPH % 7.9 % (27.0-41.0); MEAN CELL VOLUME 95.9 fl (81.0-99.0); MEAN CORPUSCULAR HGB 29.8 pg (27.0-31.0); MEAN PLATELET VOLUME 11.3 fl (9.6-12.3); MONO # 0.4 10*3/uL (0.1-1.0); MONO % 5.2 % (3.0-9.0); NEUT # 6.5 10*3/uL (2.3-7.9); NEUT % 86.4 % (47.0-73.0); PLATELET COUNT AUTOMATED 160 10*3/uL (130-400); RED BLOOD COUNT 3.93 10*6/uL (4.10-5.10); RED CELL DISTRI WIDTH 15.6 % (0-14.5); WHITE BLOOD COUNT 7.5 10*3/uL (4.8-10.8)
[2017-08-11 05:59] LABS: ALBUMIN 2.7 gm/dl (3.1-4.5); CREATININE 1.68 mg/dL (0.55-1.02); TOTAL PROTEIN 6.7 gm/dL (6.4-8.2)
[2017-08-11 08:00] VITALS: BP 139/66
== END 2017-08-11 08:55 | disposition other institution (70) | DRG 682 ==
LOC: 5E 15:01
PROVIDERS: Internal Medicine; Internal Medicine Cardiovascular Disease; Student in an Organized Health Care Education/Training Program
PROC: 4B02XSZ Measurement of Cardiac Pacemaker, External Approach (ICD-10-PCS; principal; 2017-08-09)
PROC: 30233K1 Transfusion of Nonautologous Frozen Plasma into Peripheral Vein, Percutaneous Approach (ICD-10-PCS; 2017-08-10)
PROC: 30233L1 Transfusion of Nonautologous Fresh Plasma into Peripheral Vein, Percutaneous Approach (ICD-10-PCS; 2017-08-10)
DX: N17.0 Acute kidney failure with tubular necrosis (principal); E43 Unspecified severe protein-calorie malnutrition; J90 Pleural effusion, not elsewhere classified; J18.1 Lobar pneumonia, unspecified organism; D68.59 Other primary thrombophilia; E11.22 Type 2 diabetes mellitus with diabetic chronic kidney disease; E11.51 Type 2 diabetes mellitus with diabetic peripheral angiopathy without gangrene; E11.622 Type 2 diabetes mellitus with other skin ulcer; I13.0 Hypertensive heart and chronic kidney disease with heart failure and stage 1 through stage 4 chronic kidney disease, or unspecified chronic kidney disease; I50.22 Chronic systolic (congestive) heart failure; J45.901 Unspecified asthma with (acute) exacerbation; L97.309 Non-pressure chronic ulcer of unspecified ankle with unspecified severity; E87.1 Hypo-osmolality and hyponatremia; E11.65 Type 2 diabetes mellitus with hyperglycemia; I27.20 Pulmonary hypertension, unspecified; I08.1 Rheumatic disorders of both mitral and tricuspid valves; I48.2 Chronic atrial fibrillation; K21.9 Gastro-esophageal reflux disease without esophagitis; E86.0 Dehydration; N18.3 Chronic kidney disease, stage 3 (moderate); M19.90 Unspecified osteoarthritis, unspecified site; F32.9 Major depressive disorder, single episode, unspecified; K57.90 Diverticulosis of intestine, part unspecified, without perforation or abscess without bleeding; F41.1 Generalized anxiety disorder; E66.3 Overweight; S91.001A Unspecified open wound, right ankle, initial encounter; X58.XXXA Exposure to other specified factors, initial encounter; I87.2 Venous insufficiency (chronic) (peripheral); D72.825 Bandemia; D72.9 Disorder of white blood cells, unspecified; D72.810 Lymphocytopenia; D64.9 Anemia, unspecified; Z86.718 Personal history of other venous thrombosis and embolism; Z95.0 Presence of cardiac pacemaker; Z80.8 Family history of malignant neoplasm of other organs or systems; Z82.3 Family history of stroke; Y93.89 Activity, other specified; Y92.89 Other specified places as the place of occurrence of the external cause; Y99.8 Other external cause status; Z68.25 Body mass index [BMI] 25.0-25.9, adult; Z79.4 Long term (current) use of insulin; Z90.49 Acquired absence of other specified parts of digestive tract; Z90.710 Acquired absence of both cervix and uterus; Z98.49 Cataract extraction status, unspecified eye; Z88.2 Allergy status to sulfonamides; Z88.9 Allergy status to unspecified drugs, medicaments and biological substances; Z79.899 Other long term (current) drug therapy

== ENCOUNTER 2017-08-13 00:50 | Inpatient (IN) | payer MEDICARE, MEDICAID ==
[~2017-08-13] VITALS: Ht 170.1 cm; Wt 81.9 kg
[2017-08-13] VITALS (9 sets, daily range): BP systolic 127–193; BP diastolic 31–88
--- NOTE | ~2017-08-13 | PROC NOTE ---
[place], [place] PROCEDURE NOTE NAME: CELENA GOLDSTEIN I UNIT #: [id number] ROOM: [facility] DOCTOR: ADAL BLACK BIRTHDATE: [birth year] DOS: REFERRING PHYSICIAN: Dr. Larkin. RADIOLOGIST: ____ HISTORY OF PRESENT ILLNESS: The patient is an 82-year-old admitted to [facility] on 08/13/2017 with COPD disease exacerbation and pneumonitis. The patient's significant previous medical history includes GERD, CKD, CHF and DM type 2. [facility] service was consulted due to the patient coughing with food/liquids of all consistencies. MBSS METHODS: This exam was viewed in the lateral plane. The patient trialled the following barium impregnated consistencies: Single sips of thin liquids via straw times 5, teaspoons of pureed times 2 and bite of soft solid times 1. The patient declined core solid due to dryness of solid and lack of dentures. One hundred percent feeding assistance was provided. ORAL PHASE: Adequate bolus acceptance with no anterior loss noted. AP bolus transit was timely. Mastication of soft solid was timely and adequate. PHARYNGEAL PHASE: Initiation of the swallow response was timely. HLE was adequate with subsequent complete epiglottic retroflexion. No aspiration or penetration was observed across all consistencies. The patient with false positive coughing throughout exam. UES: Mildly slow transit of pureed through visible upper esophagus, but no residue or redirection. IMPRESSION: The patient tolerated all presented consistencies (thin liquid, pureed, soft solid) without aspiration. Although patient demonstrated coughing following thin liquids, this was false positive as no contrast was present in the airway. Recommend initiating diet of soft foods with thin liquids. Strict adherence to aspiration precautions recommended to maintain swallowing safety. RECOMMENDATIONS: 1. Initiate soft diet with thin liquids. 2. Feeding assistance p.r.n. 3. Aspiration precautions: Fully upright, awake and alert for all p.o., small bites/sips, slow rate of feeding, dentures in place during meals, oral care at least b.i.d. PLAN OF CARE: [facility] will follow up with the patient to ensure tolerance to diet and reinforce aspiration precautions. Findings and recommendations were discussed with RN who expressed understanding. If there are any questions/concerns, please contact the [facility] department at [phone]. [place], [place] PROCEDURE NOTE NAME: CELENA GOLDSTEIN I UNIT #: [id number] ROOM: [facility] DOCTOR: ADAL BLACK BIRTHDATE: [birth year] Adal Cohn CM:PROCNOTE:PROCEDURE NOTE [id number] ADAL BLACK
--- NOTE | ~2017-08-13 | PR ---
[place], [place] PROGRESS NOTE NAME: CELENA GOLDSTEIN I UNIT #: [id number] ROOM: [facility] DOCTOR: RON SNOWDEN,JULY BIRTHDATE: [birth year] DOS: 08/16/2017 SUBJECTIVE: The patient is being followed for possible aspiration pneumonia. She had an MBS yesterday and did pass it. Her chest x-ray from this morning shows chronic interstitial fibrosis. She has been afebrile. The patient herself is alert, said she had some nausea earlier. No emesis. She states her breathing is improving, states she is unable to cough. She is on O2 via nasal cannula. She has been receiving Merrem and vancomycin as well as Levaquin. LABORATORY DATA: Urinary antigens are pending. Last vancomycin trough 19.8. BUN 85, creatinine 2.22, albumin 2.3. WBC 6.7, platelets 98. CURRENT MEDICATIONS: Vancomycin, Levaquin, Solu-Medrol, Carafate, Coumadin, Lasix, Humalog, Mucinex, Protonix, heparin, Ditropan, Neurontin, K-Dur, Toprol, Rocaltrol, Lipitor, DuoNeb, Dulcolax, [place], Tylenol. REVIEW OF SYSTEMS: She has been afebrile. Further review of systems, complaining of pain in bilateral upper extremities. No rash or itch. She has significant peripheral edema. OBJECTIVE: VITAL SIGNS: Temperature 97.0, pulse 67, respirations 18, BP 151/74. GENERAL: An 82-year-old frail appearing female. HEAD, EYES, EARS, NOSE AND THROAT: Normocephalic. No thrush. Tacky mucous membranes with wet respirations. LUNGS: Coarse bilaterally. Respirations slightly labored. HEART: Regular rhythm. ABDOMEN: Soft, nondistended, nontender. EXTREMITIES: +3 to 4 edema to bilateral lower extremities as well as edema of bilateral upper extremities, extensive ecchymosis of bilateral upper extremities. SKIN: Warm, dry, pale. ASSESSMENT: Pneumonia with prior sputum culture showing extended-spectrum beta-lactamase Escherichia coli. No sputum culture obtainable, but her methicillin-resistant Staphylococcus aureus screen is negative. PLAN: At this point, we will narrow the antibiotics, stop the vancomycin and Levaquin, especially given her renal insufficiency, resume the Merrem and stop the Levaquin and vancomycin. Case reviewed with Dr. Colón. ADDENDUM I agree with the above plans as described. We will follow the patient up clinically and adjust accordingly. REJI SP VELASQUEZ [place], [place] PROGRESS NOTE NAME: CELENA GOLDSTEIN I UNIT #: [id number] ROOM: [facility] DOCTOR: RON SNOWDEN,JULY BIRTHDATE: [birth year] ALEC MERCADO MD CM:PNTRANS [id number] JULY RON SNOWDEN 08/18/17 0811 interface
--- NOTE | ~2017-08-13 | CON ---
[place], [place] REPORT OF CONSULTATION NAME: [facility]IN [id number] UNIT #: [id number] ROOM: [facility] DOCTOR: MIKEY AHMADI MD,DENISE BIRTHDATE: [birth year] DOS: 08/14/2017 PULMONARY CONSULTATION, EVALUATION AND MANAGEMENT CONSULTATION REQUESTED BY: Dr. Donita Larkin. REASON FOR CONSULTATION: The consultation was ordered for the patient for assessment of symptoms of shortness of breath and others. HISTORY OF PRESENT ILLNESS: This is an 82-year-old female who has been admitted to the hospital on 08/13/2017. The patient unable to give any history, noted extreme hard of hearing. She has been suspected with aspiration with pneumonia on this admission as well currently noted n.p.o. She has not been able to give me history as the patient unable to understand the question because of extreme hearing loss. The history was reviewed for the documentation for the current physician's note and the nurse's notes. This is an 82-year-old white female who has been admitted to the [facility]. She has been treated and discharged after medical management between 08/06/2017-08/12/2017 for acute pneumonia. As per family members of the patient, the patient was also noted with nonhealing wound of the lower extremity as well. The patient underwent bilateral lower extremity angiogram at that time. The patient was discharged home on tapering dose of prednisone and the oral Levaquin. As the patient came home, she has been noted with increased coughing with worsening of the shortness of breath and wheezing, requiring assessment in the ER of [facility]. She has been hospitalized for further medical management. She has been noted with possible aspiration during this admission as she has been noted with some dysphagia with the liquids and other diet. REVIEW OF SYSTEMS: Could not be completed because of current difficult communication and very limited because of severe hearing loss. PAST MEDICAL HISTORY: 1. The patient known with history of aortic valve endocarditis. 2. Degenerative arthritis. 3. Chronic atrial fibrillation. 4. Chronic kidney disease, stage 3. 5. Diabetic ulcers of the ankle. 6. Diverticulosis. 7. Essential hypertension. 8. Coronary artery disease. 9. Acute gastroesophageal reflux. 10. Extreme hearing loss. 11. Deep venous thrombosis of the lower extremity, hypercoagulable status. 12. Cardiac dysrhythmia with infected pacemaker wire. 13. Mitral valve regurgitation. 14. Peripheral arterial disease. 15. Pulmonary hypertension, etiology unknown. The classification of pulmonary hypertension was unknown. [place], [place] REPORT OF CONSULTATION NAME: CELENA GOLDSTEIN I UNIT #: [id number] ROOM: [facility] DOCTOR: DEQUAN GOMEZ MDM BIRTHDATE: [birth year] 16. History of chronic stasis dermatitis. 17. Systolic congestive heart failure as well. 18. Type 2 diabetes mellitus. PAST SURGICAL HISTORY: Reported as: 1. Cardiac catheterization. 2. Pacemaker insertion. 3. Appendectomy. 4. Cataract extraction with lens implantation bilaterally. 5. Cholecystectomy. 6. Hysterectomy. 7. Peripheral angiogram. SOCIAL HISTORY: She was reported no tobacco, alcohol or illicit drug use in the past, , has been living at home. FAMILY HISTORY: Both parents have been . HOME MEDICATIONS: Listed as Levaquin, Mucinex, gabapentin, Lasix, calcitriol, omeprazole, metoprolol, Crestor, potassium chloride, VESIcare and Coumadin. DRUG ALLERGY: REPORTED: 1. LISINOPRIL. 2. LOVASTATIN. 3. NIACIN. 4. BACTRIM. PHYSICAL EXAMINATION: GENERAL: This is an 82-year-old female noted with extreme hearing loss at this time without any acute distress. At time of the assessment, noted with coughing, chest congestion and not expectorate any sputum during the examination and assessment. Height of 5 feet 7 inches, weight of 159 pounds, BMI 24.9. VITAL SIGNS: Normal temperature noted since admission, respiratory rate 24-16, heart rate of 62-110, blood pressure 181/66-146/50. Pulse oxygen saturation recorded on 2 L nasal cannula 97% saturation. HEENT: Shows head was atraumatic. Eyes nonicterus. Severe hearing loss. Loss of temporal muscle mass. Oral mucosa was dry. NECK: Supple. CARDIOVASCULAR: S1, S2 is audible. LUNGS: With scattered rhonchorous breathing noted in the lungs bilaterally. ABDOMEN: Flat, soft, nontender. Bowel sounds present. CENTRAL NERVOUS SYSTEM: Unable to correctly assess, but the patient was moving upper and lower extremities at her own will. VISIBLE SKIN: Dryness of the lower skin with venous stasis, pigmentation of the lower extremities. MUSCULOSKELETAL: Without any major deformities of any bones. LABORATORY DATA: CMP of 08/13/2017; BUN 54, creatinine 1.67, glucose 143. Remaining electrolytes grossly normal. Troponin noted normal yesterday. Arterial blood gas of 08/13/2017, pH of 7.46, pCO2 of 37, pO2 of 141 yesterday. [place], [place] REPORT OF CONSULTATION NAME: CELENA GOLDSTEIN I UNIT #: [id number] ROOM: [facility] DOCTOR: MIKEY AHMADI MD,DENISE BIRTHDATE: [birth year] The CBC, which was done on 08/13/2017, normal WBC count and platelet count normal, hemoglobin 11.3. The PT/INR noted at 1.3 this morning, which is subtherapeutic, PTT noted greater than 250. CMP; BUN 62, creatinine 1.64, glucose 241. CBC of this morning: WBC count remains normal, hemoglobin 10.4, platelet count mildly decreased 129. PTT last night was noted greater than 350 at 2118 hours and then repeated again at 4:52 a.m. was noted still greater than 250. The adjustment of the heparin has been already done according to protocol with pending repeat PTT. The culture of the urine on 07/14/2017 was noted, no bacterial growth. REVIEW OF THE RADIOLOGY DATA: The chest x-ray that was done for this patient on 08/13/2017 was noted with increased interstitial marking with bilateral pleural fluids. The CT scan of the chest that was done on 08/13/2017 for this patient was reviewed. It shows a small right-sided pleural fluid. The calcification of the bronchial tree were noted and finding a normal variant. CT scan of the mediastinal windows is very limited review because of the lack of IV contrast. It shows some evidence of lymph nodes, which were noted precoronal with some calcification as well. The subcarinal lymph nodes were also noted with evidence of calcification. The V/Q scan that was completed last night reported with a large mass defect involving the entire left lower lobe and the right mid lung with intermittent probability of pulmonary embolism. IMPRESSION: 1. The patient who has been currently admitted to the hospital with increased respiratory symptom was considered strongly for acute pulmonary embolism based on the V/Q scan and in view of the chest x-ray, which are noted relatively normal without any infiltration or other abnormalities. She was noted subtherapeutic INR on admission. 2. Possibility of aspiration would be considered. I do not see any gross area of infiltration, consolidation on CT scan of the chest. 3. Right pleural fluids were noted, most likely related to the congestive heart failure, systolic dysfunction. 4. Pulmonary hypertension was also noted, most likely related to the WHO classification 2 with cardiac etiology with severe mitral valve regurgitation resulting in pulmonary hypertension. The echocardiogram results were not available in this hospital. The last echocardiogram was essentially done in 2016. At that time, was reported with pulmonary artery pressures of 51, but the latest pressure was unknown. Mild dilatation of the right atrium was also reported. 5. Elderly status, retained secretion in the airway with possibly bronchitis or retained secretions simply with the mucus would be considered. PLAN OF MANAGEMENT: Proceed with the modified barium swallow to assess the swallowing prior to starting the patient on oral diet. Adjust the patient's dose of the heparin to keep a therapeutic level. The Solu-Medrol high dose was administered, which were decreased to at this time 40 mg b.i.d. because of lack of any wheezing. Possible consideration of acute exacerbation of COPD could be considered. The patient has been getting broad-spectrum intravenous antibiotics. Certainly antibiotics should be deescalated soon as well the culture results will be available. The patient is currently getting meropenem, [place], [place] REPORT OF CONSULTATION NAME: CELENA GOLDSTEIN I UNIT #: [id number] ROOM: [facility] DOCTOR: MIKEY AHMADI MD,[facility] BIRTHDATE: [birth year] Levaquin and the vancomycin. She was also noted with chronic kidney injury, stage 3, which needs to be closely monitored. Pleural fluids noted small, at this time would not require any thoracentesis, diagnostic or therapeutic at the present time. Ordered the sputum for Gram stain and culture. Usual care, other supportive therapy, plan of management and care plan. Additional treatment changes will be recommended for this patient based on the progression of the illness. The patient could be started on anticoagulation of Coumadin, starting even tonight to maintain a therapeutic level. Other additional changes will be made for the patient and recommended for the patient based on progression of the illness. Titrate oxygen supplementation to maintain pulse oxygen saturation 92% or greater. Obtain the medical record from [facility] to assess her echocardiogram, pulmonary hypertension severity. Overall prognosis of the patient would be considered with heart rate at this time at her age. She also shows appearance of severe protein-calorie malnutrition. Prealbumin level will be ordered for tomorrow. Bronchodilator will be sent to help mobilize the secretions, which are retained in the major airways. The patient already is receiving the DuoNeb q.4 hours. Chest x-ray monitoring p.r.n. will be continued. Monitor temperature profile. Thanks for allowing me to participate in the care of this patient. DENISE JENSEN MD CM:CONSTR:REPORT OF CONSULTATION 1455 08/15/17 0114 interface
--- NOTE | ~2017-08-13 | CON ---
[place], [place] REPORT OF CONSULTATION NAME: CELENA GOLDSTEIN I UNIT #: [id number] ROOM: [facility] DOCTOR: [facility] BIRTHDATE: [birth year] DOS: 08/14/2017 CARDIOLOGY CONSULTATION IMPRESSION: Cardiomegaly and ischemic cardiomyopathy may be considered and no acute cardiac decompensation at this time and chronic kidney disease, probably stage IV and underlying pulmonary emboli in one of the consideration bilateral, altered mental status, awake and responding. Hemodynamically appears to be fairly good with a heart rate of 60, blood pressure 145/88, O2 sats are good. Creatinine is 1.64, hemoglobin 10.4. CT of chest without contrast, aspiration pneumonia is one of the consideration on broad spectrum antibiotics. The cardiomegaly with enlargement of the thrombus is considered and pulmonary hypertension, also is considered. CT scan of the chest underlying pulmonary emboli, also may be of consideration. The patient has a previous history of aspiration pneumonia, esophagitis, bilateral pleural effusion, possible history of metabolic encephalopathy and with some altered mental status and the family requested for , but could not get the bed yet. Type 2 diabetes and history of peripheral artery disease, which has been intervened. IMPRESSION: Pulmonary emboli, ____ ischemic cardiomyopathy, compensating and hemodynamically stable. SUGGESTION: Continue current therapy. The patient has history of MRSA, we are doing the surveillance. We will continue with current management and continue with anticoagulation and follow the patient periodically since there is no significant decompression, we will continue the current conservative medical therapy. Thank you very much for asking me to see the patient. Follow the patient. SKINNY DELAROSA MD CM:CONSTR:REPORT OF CONSULTATION 1231 08/14/17 1548 interface ARON LIMON MD
--- NOTE | ~2017-08-13 | PR ---
[place], [place] PROGRESS NOTE NAME: CELENA GOLDSTEIN I UNIT #: [id number] ROOM: [facility] DOCTOR: NADINE MANUEL MD BIRTHDATE: [birth year] DOS: SUBJECTIVE: The patient has been admitted to the hospital with COPD with acute exploration with pulmonary embolism and patient is developing some hematoma of the left arm, which looks like maybe seroma, but it is causing lot of tension, will need to be strained. I put request to Dr. Ruby for consult for that reason. Otherwise, the patient is feeling much better, conscious, alert and oriented and she is talking very well. OBJECTIVE: VITAL SIGNS: Her temperature is 97, pulse is 67, respirations 18, blood pressure is 151/74. LUNGS: The patient has bilateral wheezing in both the lungs. HEART: Regular. LABORATORY DATA: Her blood culture shows gram-positive cocci in cluster and multiple other organism. The patient is taking antibiotic. Her CBC today showed white count 6700, RBC ____, hemoglobin 10.4, hematocrit is 33.5. Blood sugar 107, BUN is 24, creatinine 1.5, GFR 46. Protime is 20.1. Chest x-ray showed chronic interstitial fibrosis. No significant change. NADINE MANUEL MD CM:PNTRANS [id number] NADINE MANUEL MD 08/17/17 1732 interface
--- NOTE | ~2017-08-13 | PR ---
[place], [place] PROGRESS NOTE NAME: CELENA GOLDSTEIN I UNIT #: [id number] ROOM: [facility] DOCTOR: NADINE MANUEL MD BIRTHDATE: [birth year] DOS: SUBJECTIVE: The patient has been admitted to the hospital with COPD with acute exploration with acute bronchial pneumonitis with congestive heart failure. She is not feeling very good. She is on oxygen and her pulse oximetry is 94%, heart rate 64 and respirations 20 and blood pressure 146/53. She is having bilateral rhonchi and crepitation in both the lungs and having 2+ edema of leg. Her abdomen is soft. Liver is slightly enlarged. No tenderness. No mass is palpable in the body. The patient is being seen by Dr. Benavidez for her lung problem and she is responding very slowly. NADINE MANUEL MD CM:PNTRANS [id number] NADINE MANUEL MD 08/16/17 1001 interface
--- NOTE | ~2017-08-13 | PR ---
[place], [place] PROGRESS NOTE [facility]: [id number] UNIT #: [id number] ROOM: [facility] DOCTOR: MIKEY AHMADI MD,DENISE BIRTHDATE: [birth year] DOS: 08/16/2017 PULMONARY FOLLOWUP SUBJECTIVE: The patient remains in Intensive Care Unit comfortably resting on the bed without any acute distress. Denies symptoms of chest pain or hemoptysis. The patient has been noted with hyperglycemia. She has been receiving the Solu-Medrol 60 mg q. 8h. Denies symptoms of hemoptysis or any chest pain, postnasal drainage, general weakness and fatigue were noted. She was noted with significant hearing loss, which is chronic and senile. The remaining system could not be completed further from the patient. OBJECTIVE: VITAL SIGNS: Shows normal temperature, respiratory rate 18-20, heart rate 62-60, blood pressure 130/52-146/53. Pulse oxygen saturation on 2 liters nasal cannula 96% saturation. HEENT: Examination shows head was atraumatic. Eyes nonicterus. NECK: Supple. CARDIOVASCULAR: S1, S2 is audible. LUNGS: Noted without any crackles. Decreased breath sounds are noted in the lungs bilaterally. Expiratory wheezing noted, moderately and diffusely. ABDOMEN: Soft, nontender. EXTREMITIES: Without any acute edema. VISIBLE SKIN: No lesions or rashes. MUSCULOSKELETAL: No acute deformities. CENTRAL NERVOUS SYSTEM: In general appeared to be intact with a limited exam. LABORATORY DATA: CBC today: WBC count normal, hemoglobin 10.4, hematocrit 33.5, platelet count were normal. CMP of 08/16/2017; BUN 85, creatinine 2.22. Bedside blood glucose ranging from 478-462. The chest x-ray of the patient that was done, 1 view was reviewed for the patient at the bedside as a portable study. The chest x-ray of the patient, reviewed shows interstitial marking noted increased for this patient with possibility of congestive heart failure and small bilateral pleural effusions. The BMP of the patient today, BUN 85, creatinine 2.22, glucose 245. Albumin noted 2.3. CBC of this morning; WBC count normal, platelet count 98,000, hemoglobin 10.4, and hematocrit was normal. IMPRESSION: 1. The patient was currently noted with acute respiratory failure with ongoing acute congestive heart failure, very likely. 2. Acute with chronic kidney disease. 3. Acute exacerbation of chronic obstructive pulmonary disease/bronchial asthma. 4. Uncontrolled hyperglycemia. 5. Therapeutic INR, the patient currently being managed with use of Coumadin gradual increase in dose on a daily basis to maintain a therapeutic INR and anticoagulation currently. Given intravenously as well. Oxygen supplementation to maintain pulse oxygen 92% greater. Kidney function monitor for the patient closely as well because of elevation of BUN and creatinine are noted in the last 24 hours further of 1.7-2.2. Usual care. Other additional treatment changes to [place], [place] PROGRESS NOTE NAME: CELENA GOLDSTEIN I UNIT #: [id number] ROOM: [facility] DOCTOR: MIKEY AHMADI MD,DENISE BIRTHDATE: [birth year] be made for this patient based on the progression of the illness. Reduce the dose of Solu-Medrol for the patient to partially improved the hyperglycemia. The dose of Solu-Medrol was changed from 60 mg q. 8 hours to 40 mg q. 8 hours. DENISE JENSEN MD CM:PNTRANS [id number] DENISE AHMADI MD 08/17/17 010 interface
--- NOTE | ~2017-08-13 | PR ---
[place], [place] PROGRESS NOTE NAME: [facility]IN [id number] UNIT #: [id number] ROOM: [facility] DOCTOR: MIKEY AHMADI MD,DENISE BIRTHDATE: [birth year] DOS: 08/15/2017 SUBJECTIVE: The patient noted comfortable at this time, resting on the bed. She has not been noted much communication at all. Noted severe hearing loss. She has been continued on intravenous heparin for pulmonary embolus and management, which has been kept to the therapeutic dose. She has not been reported any symptoms of hemoptysis. The patient was ordered the modified barium swallow, which will be completed today. She has been currently kept n.p.o. for a possibility of aspiration. She is unable to give me any history. PHYSICAL EXAMINATION: VITAL SIGNS: Showed normal temperature, respiratory rate 20, heart rate 60, blood pressure 146/53 this morning. Pulse oxygen saturation on 2 liters 97% saturation. HEENT: No acute change. NECK: Supple. CARDIOVASCULAR: S1, S2 is audible. LUNGS: The patient was noted without any wheezing or crackles at the present time. The breaths are noted decreased in the lower portion of the lungs bilaterally. ABDOMEN: Soft, nontender, bowel sounds present. EXTREMITIES: Noted without any acute edema. VISIBLE SKIN: No lesions or rashes. MUSCULOSKELETAL SYMPTOMS: Without acute deformities. LABORATORY DATA: Today noted: The CMP that was done this morning, glucose 356, BUN 71, creatinine 1.92. CO2 was 18. The PTT was noted 60.3 yesterday evening, which was therapeutic. The PTT this morning was noted as 59 and INR 1.3. The PTT noted therapeutic and PT/INR was subtherapeutic. CBC this morning, WBC count normal, hemoglobin 10.4, hematocrit 34.1, platelet count 117,000. IMPRESSION: 1. The patient was currently noted with acute hypoxic respiratory failure. 2. Acute pulmonary embolism. 3. Pleural fluid in the right side was also noted, most likely congestive heart failure with systolic dysfunction. 4. Chronic pulmonary hypertension, WHO class 2. Cardiac etiology would be considered. 5. Severe debility was also noted. 6. Possibility of retained secretion of the airways. 7. Acute exacerbation of chronic obstructive pulmonary disease or asthma. PLAN OF MANAGEMENT: Continuation of the bronchodilators and oxygen supplementation. Continuation of the corticosteroids. Bronchodilators. Monitor pleural fluid. Proceed with the modified barium swallow for assessment. Other supportive therapy, plan of management and care plan. Monitor chest x-ray. At the present time, continue medical management of acute pulmonary embolism. [place], [place] PROGRESS NOTE NAME: CELENA GOLDSTEIN I UNIT #: [id number] ROOM: [facility] DOCTOR: DENISE GOMEZ MD BIRTHDATE: [birth year] DENISE JENSEN MD CM:JEROME [id number] DENISE AHMADI MD 08/15/[id number] interface
--- NOTE | ~2017-08-13 | PR ---
[place], [place] PROGRESS NOTE NAME: CE[facility]STEIN I [id number] UNIT #: [id number] ROOM: [facility] DOCTOR: MIKEY AHMADI MD,DENISE BIRTHDATE: [birth year] DOS: 08/17/2017 SUBJECTIVE: She has been currently comfortably sitting on the chair this morning. She does have some cough without any sputum expectoration, noted extreme hearing loss. Denies symptoms of chest pain. She has not been noted hemoptysis. She has been noted with a localized area of hematoma on the left forearm. ____ noted intact with generally decreased noted. She has not been noted symptoms of chest pain or hemoptysis. There were no symptoms of hematuria. General weakness, fatigue was noted. Remaining review of systems limited, but noted negative. OBJECTIVE: VITAL SIGNS: Normal temperature, respiratory rate 20, heart rate of 60 with paced rhythm, blood pressure 120/60 this morning. Pulse oxygen saturation on 2 liters nasal cannula recorded 98% saturation. Intake 550 and output was 1000 mL, negative 485 mL. HEAD, EYES, EARS, NOSE, AND THROAT: Chronic hearing loss. Head was atraumatic. NECK: Supple. CARDIOVASCULAR SYSTEM: S1, S2 is audible. LUNGS: Noted with [id number] bilateral expiratory wheezing without any crackles. Decreased breath sounds at lung bases. ABDOMEN: Soft, nontender. EXTREMITIES: Noted with a localized hematoma. Bruising noted. CENTRAL NERVOUS SYSTEM: Generally weak and fatigued noted without any focal deficit. LABORATORY AND DIAGNOSTIC DATA: Vancomycin trough level yesterday noted 19.8. PT/INR noted 1.8, PTT 56 today. Blood culture noted no bacterial growth. Chest x-ray one view that was done yesterday was noted with congestive heart failure finding. IMPRESSION: 1. The patient who has been noted with ongoing acute edema. 2. Local hematoma, atraumatic. At this time, there was no ____ known. 3. Chronic hearing loss. 4. Acute congestive heart failure. 5. Acute exacerbation of chronic obstructive pulmonary disease as well. 6. Uncontrolled hyperglycemia, which has been improving. 7. Acute chronic kidney injury. PLAN OF THERAPY: The INR noted therapeutic was improving due to therapeutic range at this time. I will discontinue the unfractionated heparin. Continue the Coumadin. Monitor INR. Surgical consultation ____ observation at this time was recommended. Continuation of the bronchodilators, oxygen supplement, medical management, diabetes mellitus and other care. Usual care. Other supportive plan of therapy and management. Additional treatment changes to be made based on progression of illness. All other previous treatment ordered will be continued. [place], [place] PROGRESS NOTE NAME: CELENA GOLDSTEIN I UNIT #: [id number] ROOM: [facility] DOCTOR: DENISE GOMEZ MD BIRTHDATE: [birth year] DENISE JENSEN MD CM:PNJORGE [id number] DENISE AHMADI MD 08/17/17 1558 interface
--- NOTE | ~2017-08-13 | PR ---
[place], [place] PROGRESS NOTE NAME: CELENA GOLDSTEIN I UNIT #: [id number] ROOM: [facility] DOCTOR: RON SNOWDEN BIRTHDATE: [birth year] DOS: 08/17/2017 SUBJECTIVE: Patient is an 82-year-old female who is being followed for pneumonia. She passed her MBS. She continues with frequent wet cough which is nonproductive and wet respirations. States her breathing is better. She is up in a chair. Remains on O2 via nasal cannula. She is currently on Merrem. No nausea or vomiting, no diarrhea. She has had no fevers. OBJECTIVE: VITAL SIGNS: Temperature 97.1, pulse 63, respirations 22, BP 120/60. Fair appetite. LABORATORY DATA: Vancomycin trough 19.8. Blood cultures negative. MRSA screen negative. Sputum culture not obtained. Urine culture negative. PHYSICAL EXAMINATION: GENERAL: An 82-year-old female, up in a chair, very hard of hearing, in no acute distress. HEENT: Normocephalic. Oral cavity no thrush. O2 via nasal cannula, wet respirations. LUNGS: Coarse bilaterally. Respirations even and unlabored. HEART: Regular rhythm, no murmur appreciated, though difficult to auscultate. ABDOMEN: Soft, nondistended. EXTREMITIES: +2 to 3 edema bilateral lower extremities, all 4 extremities with significant ecchymosis. She has a large hematoma on her left forearm. SKIN: Otherwise warm, dry, free of rashes. Poor turgor. ASSESSMENT: Healthcare-associated pneumonia. Prior sputum cultures have shown ESBL Escherichia coli. PLAN: Continue her Merrem. Encouraged incentive spirometer and flutter valve use. ADDENDUM After reviewing the laboratory data, microbiology and radiographs, I agree with above plans as described. We will continue to follow the patient up clinically and adjust accordingly. JULY SP VELASQUEZ [place], [place] PROGRESS NOTE NAME: CELENA GOLDSTEIN I UNIT #: [id number] ROOM: [facility] DOCTOR: RON SNOWDEN,JULY BIRTHDATE: [birth year] ALEC MERCADO MD CM:JEROME [id number] JULY [facility] 08/18/17 0822 interface
[~2017-08-13 00:50] MED LIST changes: +GUAIFENESIN600 MG PO; +LEVAQUIN750 M1 PO; +MEDROL DOSEPAK4 MG PO; +RANITIDINE HCL150 M1 PO
[2017-08-13 01:32] LABS: EOS % 0.2 % (1.0-4.0); HEMATOCRIT 38.8 % (37.0-47.0); HEMOGLOBIN 12.3 g/dl (12.0-16.0); LYMPH # 0.9 10*3/uL (1.3-4.4); LYMPH % 8.6 % (27.0-41.0); MEAN CELL VOLUME 93.9 fl (81.0-99.0); MEAN CORPUSCULAR HGB 29.8 pg (27.0-31.0); MEAN CORPUSCULAR HGB CONC 31.7 g/dl (33.0-37.0); MEAN PLATELET VOLUME 10.9 fl (9.6-12.3); MONO # 0.5 10*3/uL (0.1-1.0); MONO % 4.9 % (3.0-9.0); NEUT # 8.9 10*3/uL (2.3-7.9); NEUT % 85.9 % (47.0-73.0); PLATELET COUNT AUTOMATED 144 10*3/uL (130-400); RED BLOOD COUNT 4.13 10*6/uL (4.10-5.10); RED CELL DISTRI WIDTH 15.4 % (0-14.5); WHITE BLOOD COUNT 10.4 10*3/uL (4.8-10.8)
[2017-08-13 01:42] LABS: ACT PARTIAL THROMBO TIME 23.3 SECONDS (20.8-31.5); INTERNATIONAL NORM RATIO 1.1 (2.0-3.5)
[2017-08-13 01:49] LABS: ALBUMIN 2.9 gm/dl (3.1-4.5); CREATININE 1.71 mg/dL (0.55-1.02); POTASSIUM 4.1 mmol/L (3.5-5.1); TOTAL PROTEIN 6.6 gm/dL (6.4-8.2)
[2017-08-13 01:50] LABS: TROPONIN I 0.032 ng/ml (<0.045)
[2017-08-13 02:06] LABS: ABG BASE EXCESS 3.3 mmol/L (-2.0-2.0); ABG HCO3 26.7 mmol/l (22-26); ARTERIAL BLOOD GAS PCO2 37.3 mmHg (35-45); ARTERIAL BLOOD GAS PH 7.467 (7.35-7.45)
[2017-08-13 05:47] LABS: ALBUMIN 2.6 gm/dl (3.1-4.5); CREATININE 1.67 mg/dL (0.55-1.02); FREE T4 1.24 ng/dl (0.76-1.46); PHOSPHOROUS 2.4 mg/dL (2.5-4.9); POTASSIUM 4.3 mmol/L (3.5-5.1); TOTAL PROTEIN 6.1 gm/dL (6.4-8.2)
[2017-08-13 05:52] LABS: THYROID STIM HORMONE (HS) 3.59 uIU/ml (0.358-4.75)
[2017-08-13 06:28] LABS: HEMATOCRIT 36.3 % (37.0-47.0); HEMOGLOBIN 11.3 g/dl (12.0-16.0); MEAN CELL VOLUME 94.8 fl (81.0-99.0); MEAN CORPUSCULAR HGB 29.5 pg (27.0-31.0); MEAN CORPUSCULAR HGB CONC 31.1 g/dl (33.0-37.0); MEAN PLATELET VOLUME 11.4 fl (9.6-12.3); PLATELET COUNT AUTOMATED 130 10*3/uL (130-400); RED BLOOD COUNT 3.83 10*6/uL (4.10-5.10); RED CELL DISTRI WIDTH 15.6 % (0-14.5)
[2017-08-13 08:13] LABS: BURR CELLS MODERATE; OVALOCYTES FEW; PLATELET SUFFICIENCY NORMAL (NORMAL); TOTAL CELLS COUNTED 100 #CELLS
[2017-08-13 14:03] LABS: BILIRUBIN 1+ (NEGATIVE); BLOOD TRACE-INTACT (NEGATIVE); CLARITY CLEAR (CLEAR); COLOR YELLOW (YELLOW); GLUCOSE NEGATIVE (NEGATIVE); KETONE 1+ (NEGATIVE); LEUKO ESTERASE TRACE (NEGATIVE); NITRITE NEGATIVE (NEGATIVE); PH 5.5 (5.0-9.0); SPECIFIC GRAVITY 1.025 (1.005-1.030); UROBILINOGEN 0.2 E.U./dl (0.2-1.0)
[2017-08-13 14:19] LABS: RBC 0-2 rbc/hpf (0-2); WBC 0-2 wbc/hpf (0-5)
[2017-08-14] VITALS: BP 139/35
[2017-08-14 04:00] VITALS: BP 109/50
[2017-08-14 05:10] LABS: HEMATOCRIT 32.8 % (37.0-47.0); HEMOGLOBIN 10.4 g/dl (12.0-16.0); MEAN CELL VOLUME 95.1 fl (81.0-99.0); MEAN CORPUSCULAR HGB 30.1 pg (27.0-31.0); MEAN CORPUSCULAR HGB CONC 31.7 g/dl (33.0-37.0); MEAN PLATELET VOLUME 11.2 fl (9.6-12.3); PLATELET COUNT AUTOMATED 129 10*3/uL (130-400); RED BLOOD COUNT 3.45 10*6/uL (4.10-5.10); RED CELL DISTRI WIDTH 15.6 % (0-14.5); WHITE BLOOD COUNT 8.8 10*3/uL (4.8-10.8)
[2017-08-14 05:26] LABS: INTERNATIONAL NORM RATIO 1.3 (2.0-3.5)
[2017-08-14 05:50] LABS: TOTAL CELLS COUNTED 100 #CELLS
[2017-08-14 05:51] LABS: ALBUMIN 2.4 gm/dl (3.1-4.5); BURR CELLS FEW; CREATININE 1.64 mg/dL (0.55-1.02); PHOSPHOROUS 3.9 mg/dL (2.5-4.9); POTASSIUM 4.9 mmol/L (3.5-5.1); TOTAL PROTEIN 5.4 gm/dL (6.4-8.2)
[2017-08-14 05:52] LABS: OVALOCYTES FEW
[2017-08-14 05:53] LABS: PLATELET SUFFICIENCY NORMAL (NORMAL)
[2017-08-14 08:00] VITALS: BP 146/50
[2017-08-14 12:00] VITALS: BP 150/54
[2017-08-14 16:00] VITALS: BP 143/72
[2017-08-14 20:00] VITALS: BP 130/34
[2017-08-15] VITALS: BP 140/47
[2017-08-15 04:00] VITALS: BP 129/45
[2017-08-15 06:11] LABS: HEMATOCRIT 34.1 % (37.0-47.0); HEMOGLOBIN 10.4 g/dl (12.0-16.0); MEAN CELL VOLUME 95.5 fl (81.0-99.0); MEAN CORPUSCULAR HGB 29.1 pg (27.0-31.0); MEAN CORPUSCULAR HGB CONC 30.5 g/dl (33.0-37.0); MEAN PLATELET VOLUME 11.1 fl (9.6-12.3); PLATELET COUNT AUTOMATED 117 10*3/uL (130-400); RED BLOOD COUNT 3.57 10*6/uL (4.10-5.10); RED CELL DISTRI WIDTH 15.9 % (0-14.5); WHITE BLOOD COUNT 6.7 10*3/uL (4.8-10.8)
[2017-08-15 06:16] LABS: ALBUMIN 2.3 gm/dl (3.1-4.5); CREATININE 1.92 mg/dL (0.55-1.02); PHOSPHOROUS 4.2 mg/dL (2.5-4.9); POTASSIUM 4.8 mmol/L (3.5-5.1); TOTAL PROTEIN 5.9 gm/dL (6.4-8.2)
[2017-08-15 06:30] LABS: INTERNATIONAL NORM RATIO 1.3 (2.0-3.5)
[2017-08-15 07:21] LABS: TOTAL CELLS COUNTED 100 #CELLS
[2017-08-15 07:22] LABS: BURR CELLS MODERATE; PLATELET SUFFICIENCY LOW (NORMAL)
[2017-08-15 08:00] VITALS: BP 146/53
[2017-08-15 12:00] VITALS: BP 128/39
[2017-08-15 16:00] VITALS: BP 128/44
[2017-08-15 20:00] VITALS: BP 142/46
[2017-08-16] VITALS: BP 130/52
[2017-08-16 06:05] LABS: HEMATOCRIT 33.5 % (37.0-47.0); HEMOGLOBIN 10.4 g/dl (12.0-16.0); LYMPH # 0.5 10*3/uL (1.3-4.4); LYMPH % 7.3 % (27.0-41.0); MEAN CELL VOLUME 94.6 fl (81.0-99.0); MEAN CORPUSCULAR HGB 29.4 pg (27.0-31.0); MONO # 0.3 10*3/uL (0.1-1.0); MONO % 4.6 % (3.0-9.0); NEUT # 5.9 10*3/uL (2.3-7.9); NEUT % 87.7 % (47.0-73.0); PLATELET COUNT AUTOMATED 98 10*3/uL (130-400); RED BLOOD COUNT 3.54 10*6/uL (4.10-5.10); RED CELL DISTRI WIDTH 15.9 % (0-14.5); WHITE BLOOD COUNT 6.7 10*3/uL (4.8-10.8)
[2017-08-16 06:26] LABS: ALBUMIN 2.3 gm/dl (3.1-4.5); CREATININE 2.22 mg/dL (0.55-1.02); PHOSPHOROUS 2.9 mg/dL (2.5-4.9); POTASSIUM 4.9 mmol/L (3.5-5.1); TOTAL PROTEIN 5.9 gm/dL (6.4-8.2)
[2017-08-16 06:37] LABS: ACT PARTIAL THROMBO TIME 54.3 SECONDS (20.8-31.5); INTERNATIONAL NORM RATIO 1.5 (2.0-3.5)
[2017-08-16 08:00] VITALS: BP 146/53
[2017-08-16 12:00] VITALS: BP 159/50
[2017-08-16 16:00] VITALS: BP 151/74
[2017-08-16 20:00] VITALS: BP 146/86
[2017-08-17] VITALS: BP 127/50
[2017-08-17 04:00] VITALS: BP 160/63
[2017-08-17 07:05] LABS: ACT PARTIAL THROMBO TIME 56.2 SECONDS (20.8-31.5); INTERNATIONAL NORM RATIO 1.8 (2.0-3.5)
[2017-08-17 08:00] VITALS: BP 120/60
[2017-08-17 16:00] VITALS: BP 147/66
== END 2017-08-17 19:41 | disposition short-term general hospital (02) | DRG 871 ==
LOC: ED 00:50 → EDHOLD 02:16 → 4E 02:16 → ICCU 02:16 → 4E 02:27 → ICCU 15:57
PROVIDERS: Internal Medicine; Internal Medicine Critical Care Medicine; Internal Medicine Hospice and Palliative Medicine; Student in an Organized Health Care Education/Training Program
PROC: 5A09357 Assistance with Respiratory Ventilation, Less than 24 Consecutive Hours, Continuous Positive Airway Pressure (ICD-10-PCS; principal; 2017-08-13)
PROC: BD11YZZ Fluoroscopy of Esophagus using Other Contrast (ICD-10-PCS; 2017-08-15)
DX: A41.9 Sepsis, unspecified organism (principal); J69.0 Pneumonitis due to inhalation of food and vomit; J96.00 Acute respiratory failure, unspecified whether with hypoxia or hypercapnia; I26.99 Other pulmonary embolism without acute cor pulmonale; E43 Unspecified severe protein-calorie malnutrition; G93.41 Metabolic encephalopathy; J90 Pleural effusion, not elsewhere classified; N17.9 Acute kidney failure, unspecified; D68.59 Other primary thrombophilia; I50.22 Chronic systolic (congestive) heart failure; J44.1 Chronic obstructive pulmonary disease with (acute) exacerbation; J45.901 Unspecified asthma with (acute) exacerbation; I13.0 Hypertensive heart and chronic kidney disease with heart failure and stage 1 through stage 4 chronic kidney disease, or unspecified chronic kidney disease; I48.2 Chronic atrial fibrillation; N18.3 Chronic kidney disease, stage 3 (moderate); K20.9 Esophagitis, unspecified; J98.09 Other diseases of bronchus, not elsewhere classified; H91.90 Unspecified hearing loss, unspecified ear; E83.39 Other disorders of phosphorus metabolism; R00.1 Bradycardia, unspecified; K21.9 Gastro-esophageal reflux disease without esophagitis; F32.9 Major depressive disorder, single episode, unspecified; M19.90 Unspecified osteoarthritis, unspecified site; I27.20 Pulmonary hypertension, unspecified; I87.2 Venous insufficiency (chronic) (peripheral); D69.6 Thrombocytopenia, unspecified; R82.4 Acetonuria; R31.29 Other microscopic hematuria; R82.2 Biliuria; E86.0 Dehydration; K57.90 Diverticulosis of intestine, part unspecified, without perforation or abscess without bleeding; I25.10 Atherosclerotic heart disease of native coronary artery without angina pectoris; I25.5 Ischemic cardiomyopathy; E11.22 Type 2 diabetes mellitus with diabetic chronic kidney disease; E11.51 Type 2 diabetes mellitus with diabetic peripheral angiopathy without gangrene; E83.41 Hypermagnesemia; E87.8 Other disorders of electrolyte and fluid balance, not elsewhere classified; E11.65 Type 2 diabetes mellitus with hyperglycemia; E66.3 Overweight; F41.1 Generalized anxiety disorder; Z95.0 Presence of cardiac pacemaker; Z90.49 Acquired absence of other specified parts of digestive tract; Z98.49 Cataract extraction status, unspecified eye; Z90.710 Acquired absence of both cervix and uterus; Z88.1 Allergy status to other antibiotic agents; Z88.2 Allergy status to sulfonamides; Z88.8 Allergy status to other drugs, medicaments and biological substances; Z79.899 Other long term (current) drug therapy